=== PATIENT | female | born 1950 | race African-American/Black ===

== ENCOUNTER 2016-07-16 16:09 | Emergency (ER) | payer MEDICARE ==
[~2016-07-16] VITALS: Ht 157.5 cm; Wt 55.8 kg
[~2016-07-16 16:09] MED LIST: AMLO10TA2 PO; CELE200C PO; ESOM40CA25 PO; HYDR-2762 PO; MOME110A IH; MOME13HF IH
--- NOTE | 2016-07-16 17:42 | PHYS DOC ---
Past Medical History Past Medical History: Arthritis, Hypertension Additional Past Medical Histor: chronic back pain, panceratitis, Past Surgical History: Cholecystectomy Alcohol Use: None Drug Use: Cocaine, Marijuana Adult General Chief Complaint Chief Complaint: BACK PAIN OR INJURY HPI HPI Patient is a 66 year old female who presents with low back pain. Patient reports she has chronic low back pain with radiation down her legs. She says she has been recommended for surgery in the past, but has not done it. This acute exacerbation started 3 days ago when she says she fell after her leg gave out. She did not hit her head or lose consciousness. She presents now with diffuse low back pain. She denies any loss of bowel or bladder continence. She has been ambulatory since. She has tried Excedrin with insufficient relief. Review of Systems Review of Systems Constitutional: Denies fever or chills Eyes: Denies change in visual acuity or eye pain HENT: Denies nasal congestion or sore throat Respiratory: Denies cough or shortness of breath Cardiovascular: Denies chest pain GI: Denies abdominal pain, nausea, vomiting, bloody stools or diarrhea : Denies dysuria or hematuria Musculoskeletal: Acute on chronic low back pain Integument: Denies rash or skin lesions Neurologic: Tingling pain down legs (chronic). Denies headache, focal weakness or acute sensory changes Current Medications Current Medications Current Medications Medications (Trade) Dose Ordered Sig/Hayley Start Time Stop Time Status Last Admin Dose Admin Ketorolac Tromethamine (Toradol Im) 30 mg 1X ONCE 07/16/16 18:30 07/16/16 18:31 DC 07/16/16 18:11 30 MG Oxycodone/ Acetaminophen (Percocet 5/325) 2 tab 1X ONCE 07/16/16 18:30 07/16/16 18:31 DC 07/16/16 18:10 2 TAB Allergies Allergies Allergies Coded Allergies Type Severity Reaction Last Updated Verified Penicillins Allergy Intermediate 02/08/16 Yes Physical Exam Physical Exam Constitutional: Well developed, well nourished, non-toxic appearance; ambulatory in ED HENT: Normocephalic, atraumatic, bilateral external ears normal Eyes: EOMI, conjunctiva normal, no discharge Neck: Normal range of motion, no stridor Cardiovascular: Heart rate normal, regular rhythm, no murmur Lungs & Thorax: Bilateral breath sounds clear to auscultation Abdomen: Bowel sounds normal, soft, non-distended, no TTP Skin: Warm, dry, no erythema, no rash Back: General lumbar tenderness; no stepoff noted Extremities: No obvious deformity, no edema Neurologic: Alert and oriented X 3, strength and sensation to light touch in BLE intact and symmetrical, no gross deficits noted Current Patient Data Vital Signs Vital Signs Date Time Temp Pulse Resp B/P Pulse Ox O2 Delivery O2 Flow Rate FiO2 07/16/16 19:33 97 191/86 98 Room Air 07/16/16 17:14 98.3 19 98.3 EKG EKG [] Radiology/Procedures Radiology/Procedures CT lumbar spine: IMPRESSION No acute fracture or subluxation of the lumbar vertebrae is seen. Course & Med Decision Making Course & Med Decision Making Pertinent Labs and Imaging studies reviewed. (See chart for details) Patient is 66-year-old female who presents with acute on chronic low back pain after fall a few days ago. No red flag findings on physical exam. Will obtain CT lumbar spine to rule out serious injury. Oral pain meds and IM Toradol ordered for pain control. Imaging results as above. Discussed findings with patient, who reports her pain has greatly improved. Will plan discharge home with short course of pain medication, instructions for follow-up with her back surgeon, return precautions. Dragon Disclaimer Dragon Disclaimer This electronic medical record was generated, in whole or in part, using a voice recognition dictation system. Departure Departure Impression: Primary Impression: Acute exacerbation of chronic low back pain Disposition: HOME, SELF-CARE Condition: IMPROVED Referrals: JERRI BUCKLEY MD (PCP) ANGELES RICE MD Patient Instructions: Chronic Back Pain Additional Instructions: Thank you for allowing us to provide care today in the Emergency Department. Take the provided medication as directed. Use caution when taking this medication as it can make you drowsy. Schedule a follow up appointment with your primary care doctor. Also schedule a follow up appointment with your back surgeon. Return promptly to the Emergency Department if you develop any new or concerning symptoms. Scripts Naproxen 375 Mg [id number] Mg PO BID PRN PAIN #20 Prov:RICCI ANDREW MD 07/16/16 Hydrocodone/Apap 5-325 ([place] 5-325 Tablet)1 Each Tablet1 Tab PO PRN Q6HRS PRN PAIN #15 TAB Prov:RICCI ANDREW MD 07/16/16 RICCI ANDREW MD Jul 16, 2016 17:42
[2016-07-16] MEDS ORDERED: OXYCODONE/APAP 5/325 TABLET. PO ONE (18:30)
[2016-07-16] MEDS ORDERED: KETOROLAC TROMETHAMINE 60 MG/2 ML SYRINGE. IM ONE (18:30)
--- NOTE | 2016-07-16 18:35 | RAD ---
PROCEDURE CT scan of the lumbar spine without contrast 07/16/2016 HISTORY Severe low back pain post fall 2 days ago. TECHNIQUE Unenhanced contiguous, 0.625 millimeter axial sections were obtained through the lumbar spine. 3 millimeter sagittal, axial and coronal images of the lumbar spine were obtained. One or more of the following individualized dose reduction techniques were utilized for this study: 1. Automated exposure control. 2. Adjustment of the mA and/or kV according to patient size. 3. Use of iterative reconstruction technique. FINDINGS Comparison is made to an MRI of the lumbar spine dated 09/25/2015. Sagittal and coronal reconstructed images demonstrate very mild S-shaped curvature of the thoracolumbar spine. Degenerative changes consisting varying degrees of disc space narrowing, vertebral endplate sclerosis and minimal to mild anterior vertebral body osteophyte formation are seen throughout the lower thoracic and lumbar disc spaces. Irregularity of the endplate surrounding the L4-5 discs is again seen. Increased sclerosis surrounding these discs is noted. These findings ahve not significantly changed since the MRI examination and are felt to most likely reflect the changes of degenerative disc disease although they could be seen in the setting of discitis/osteomyelitis. Disc space narrowing is seen at L5-S1. Atherosclerotic calcification of the abdominal aorta and its branches is noted. No fracture or subluxation of the lumbar vertebrae is seen. The changes of degenerative disc disease are seen involving the mid and lower lumbar spine on the axial images. These consist of mild to moderate generalized disc bulges, degenerative changes involving the facet joints and mild to moderate ligamentum flavum hypertrophy. These findings result in severe central spinal canal stenosis with moderate to severe, left greater than right, neural foraminal stenosis at L4-5 and moderate to severe central spinal canal stenosis with moderate right greater than left neural foraminal stenosis at L5-S1. IMPRESSION No acute fracture or subluxation of the lumbar vertebrae is seen. Electronically signed by: Nj Bailey MD (Jul 16, 2016 18:34:23)
[2016-07-16] MEDS ORDERED: NAPR375T3 PO (19:10)
[2016-07-16] MEDS ORDERED: HYDR-971 PO (19:10)
[2016-07-16 19:33] VITALS: BP 191/86
== END 2016-07-16 19:28 | disposition home or self-care (01) ==
LOC: ER 16:09
DX: G89.29 Other chronic pain (principal); M54.5 Low back pain; M19.90 Unspecified osteoarthritis, unspecified site; I10 Essential (primary) hypertension; F12.10 Cannabis abuse, uncomplicated; F14.10 Cocaine abuse, uncomplicated; Z88.0 Allergy status to penicillin
CPT/HCPCS: 72131; 96372; 99284; J1885

== ENCOUNTER 2016-08-13 11:56 | Inpatient (IN) | payer MEDICARE ==
[~2016-08-13] VITALS: Ht 157.5 cm; Wt 49.0 kg
[~2016-08-13 11:56] MED LIST changes: +HYDR-971 PO; +NAPR375T3 PO
[2016-08-13] MEDS ORDERED: FENTANYL PF 100 MCG/2 ML VIAL. IV PRN (14:30)
[2016-08-13 14:34] VITALS: BP 144/99
[2016-08-13 15:05] LABS: BASO % 1 % (0-3); EOS % 2 % (0-3); HEMATOCRIT 35.4 % (36.0-47.0); HEMOGLOBIN 12.1 g/dL (12.0-15.5); LYMPH # 2.5 x10^3/uL (1.0-4.8); LYMPH % 35 % (24-48); MEAN CORPUSCULAR HEMOGLOBIN 35 pg (25-35); MEAN CORPUSCULAR HGB CONC 34 g/dL (31-37); MEAN CORPUSCULAR VOLUME 101 fL (79-100); MONO % 7 % (0-9); NEUT % 55 % (31-73); PLATELET COUNT 177 x10^3/uL (140-400); RED BLOOD COUNT 3.51 x10^6/uL (3.50-5.40); RED CELL DISTRIBUTION WIDTH 15.7 % (11.5-14.5)
[2016-08-13 15:22] LABS: ALBUMIN 3.5 g/dL (3.4-5.0); CALCIUM 9.4 mg/dL (8.5-10.1); CREATININE 1.2 mg/dL (0.6-1.0); GFR 54.1; POTASSIUM 3.1 mmol/L (3.5-5.1); TOTAL BILIRUBIN 0.4 mg/dL (0.2-1.0); TOTAL PROTEIN 7.1 g/dL (6.4-8.2)
[2016-08-13] MEDS: GABAPENTIN 300 MG CAPSULE. PO SCH ×2 (15:36→21:01)
[2016-08-13] MEDS: HYDROCODONE/APAP 10/325 TABLET. PO PRN (15:37)
[2016-08-13] MEDS ORDERED: ACETAMINOPHEN 325 MG TABLET. PO PRN (16:15)
[2016-08-13 17:40] LABS: BARBITURATES NEG (NEG); BENZODIAZEPINES NEG (NEG); CANNABINOIDS POS (NEG); COCAINE POS (NEG); METHADONE NEG (NEG); OPIATES NEG (NEG); PHENCYCLIDINE NEG (NEG)
[2016-08-13 17:43] LABS: ETHANOL, URINE NEG (NEG)
[2016-08-13 18:38] LABS: BILIRUBIN,URINE SMALL (NEG); GLUCOSE,URINE NEGATIVE (NEG); NITRITE,URINE NEGATIVE (NEG); PROTEIN,URINE 30 mg/dL (NEG-TRACE)
--- NOTE | 2016-08-13 18:46 | EKG ---
[facility] [address] [place] [address] Test Date: 2016-08-13 Test Time: 17:40:16 Pat Name: HASEEB CUMMINS Department: Room: [facility] Gender: F Bar Useful Or Busser: STEFFI : 1950 Requested By: MILLY FERRERA Order Number: [id number] Reading MD: Justina Lugo Measurements Intervals [place] Rate: 67 P: 49 NV: 148 QRS: 46 QRSD: 84 T: 64 QT: 370 QTc: 394 Interpretive Statements SINUS RHYTHM QRS(T) CONTOUR ABNORMALITY CONSISTENT WITH ANTEROSEPTAL INFARCT AGE UNDETERMINED ABNORMAL ECG RI6.01 Unconfirmed report Compared to ECG 11/28/2015 13:34:16 Myocardial infarct finding now present Sinus bradycardia no longer present Electronically Signed On 08-14-2016 19:58:11 CDT by Justina Lugo
[2016-08-13 18:54] LABS: BACTERIA,URINE FEW /HPF (0-FEW); RBC,URINE 0 /HPF (0-2); SQUAMOUS EPITHELIAL CELL,UR MOD /LPF
[2016-08-13 19:00] VITALS: BP 146/109
[2016-08-13] MEDS: AMLODIPINE BESYLATE 10 MG TABLET PO SCH (21:00)
[2016-08-13] MEDS: FENTANYL PF 100 MCG/2 ML VIAL. IV PRN (21:01)
[2016-08-13] MEDS ORDERED: CLONIDINE HCL 0.1 MG TABLET PO PRN (21:15)
[2016-08-13 23:00] VITALS: BP 175/96
[2016-08-14] VITALS (12 sets, daily range): BP systolic 98–149; BP diastolic 57–90
--- NOTE | 2016-08-14 02:23 | CONS ---
DATE OF CONSULTATION: 08/13/2016 Dr. Laurent Merritt. 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 She is with known hypertension under control with medication. Last worked at [employer] in [place]. The patient started having lower back achiness and stiffness mainly in the morning going on for more than one year and it gradually got worse and pain radiating to both lower extremities with numbness and tingling and weakness in her right lower extremity. She admits some problems with constipation. She denies any trouble with urination. Dr. Coleen Madrid used to be her family physician, but she has not seen her in about a year. She gave her oxycodone one time. The patient lives alone, had stairs to manage. The patient started having dragging of the foot going on for about 3-4 months. She had MRI scan of her lumbar vertebrae done in 01/2016, which revealed multilevel degenerative disk disease and degenerative joint disease with lumbar spinal stenosis at L4-L5 and to some extent at L5-S1 and she had CT scan of the lumbar spine done on 07/16 of this year, which again revealed spinal stenosis. The patient right now taking [id number] Excedrin for pain. She also smokes ____ for pain control. The patient used to smoke, but has not smoked in about 4-5 years. ALLERGIES: SHE IS KNOWN ALLERGIC TO PENICILLIN. PHYSICAL EXAMINATION: Today revealed a middle-aged female, thin built, in severe distress. She came to office walking with limping and dragging of her right foot, holding on to resendez. The patient had painful limited movements of her lumbar spine to a significant degree. She had tenderness to palpation over lower thoracic and lumbar paraspinal muscles extending over to sacroiliac joint area and gluteal muscles and trochanteric bursa. Straight leg raising test is positive on the right side causes some back pain. The patient had pain free range of motion of both hip and knee joints. Mild crepitus on range of motion of both knee joints without any obvious knee joint effusion. She had painful limited movements of her lumbar spine with moderate degree of lower thoracic and lumbar paraspinal muscle spasm. She had decreased touch and pinprick sensation over L5 and S1 dermatome area, more so of L5. She also had tenderness to palpation over right ankle anterolateral aspect and right tendo Achilles and she had positive Tinel sign over right peroneal nerve at fibular neck and over tibial nerve over medial aspect of her right foot. The patient had 4+/5 grade muscle strength overall with only 2-/5 grade muscle strength in right foot dorsiflexors. She is independent with bed mobility. Her skin is intact at this time. Blood pressure is 138/100 mmHg, temperature 98 degrees Fahrenheit. ASSESSMENT: 1. Mobility and self-care limitation from lumbar spinal stenosis with a right L5 radiculopathy and right foot drop and hypertension. 2. Bilateral trochanteric bursitis. 3. Tendinitis and sprain, right ankle and right foot drop. 4. Hypertension, not under good control. 5. Multilevel degenerative disk disease and degenerative joint disease of lumbar vertebrae, mainly at L4-L5 and L5-S1 level. RECOMMENDATION: I saw her this morning in my office and spoke to Dr. Vaengas and Dr. Laurent Merritt to admit her to the hospital, to have Dr. Vanegas see her. She probably needs lumbar decompression laminectomy when she is medically stable, to also get her right ankle foot brace and lumbar corset for use while up. Dr. Merritt, I appreciate asking me to participate in the care of this interesting patient. I will be glad to follow her with you as needed for her rehabilitation. RAUL DEVI MD DR: DELBERT/melissa JOB#: [id number] / [id number]
[2016-08-14] MEDS: FENTANYL PF 100 MCG/2 ML VIAL. IV PRN ×4 (04:54→14:06)
[2016-08-14] MEDS ORDERED: BACITRACIN 50,000 UNIT in IV NORMAL SALINE 1000ML BAG 1,000 ML IRR ONE (06:00)
[2016-08-14] MEDS ORDERED: THROMBIN 20,000 UNIT SPRAY.SYRN KIT TP ONE (06:43)
[2016-08-14] MEDS ORDERED: GELATIN SPONGE SIZE 100. ONE (06:43)
[2016-08-14] MEDS ORDERED: KETOROLAC 60 MG/2 ML INJ FOR OR. ONE (06:43)
[2016-08-14] MEDS ORDERED: BUPIVAC MPF-EPI 0.5%-1:200000 30 ML VIAL. ONE (06:44)
[2016-08-14] MEDS ORDERED: HYDROMORPHONE 2 MG/ML VIAL. IV PRN (07:00)
[2016-08-14] MEDS ORDERED: IV RINGERS,LACTATED 1000ML 1,000 ML IV SCH (07:00)
[2016-08-14] MEDS ORDERED: ONDANSETRON PF 4 MG/2 ML VIAL. IV PRN (07:00)
[2016-08-14] MEDS ORDERED: FENTANYL PF 100 MCG/2 ML VIAL. IV PRN (07:00)
[2016-08-14] MEDS ORDERED: LIDOCAINE 1% 1 ML SYRINGE. ID PRN (07:00)
[2016-08-14] MEDS ORDERED: PROCHLORPERAZINE 10 MG/2 ML VIAL. IV PRN (07:00)
--- NOTE | 2016-08-14 08:15 | PDOC1 ---
HISTORY AND PHYSICAL Chief Complaint Chief Complaint This 66 year old female has been admitted with a chief complaint of acute on chronic back pain. She has noted worsening back pain for over a year. Yesterday she was seen by Dr. 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 Dr. Vanegas was consulted and she is going to surgery later today. Past Medical History Cardiovascular: HTN, Other (+ murmur) Pulmonary: COPD (tobacco history ) GI: GERD, Peptic Ulcer disease (h/o) Psych: Anxiety, Addictions (h/o crack cocaine years ago, occaisional marijuana use) Musculoskeletal: low back pain (Multilevel degenerative disk disease and degenerative joint disease of LS with central spinal canal stenosis ), Osteoarthritis Renal/: Chronic renal insuff (CKD II ) Past Surgical History PSH breast biopsy L breast mass +for sclerosis adenosis tumor; some type pancreas surgery Past Surgical History: Cholecystectomy, Other (hemorrhoid surgery ) Past Family History Family History: Cancer (Dad-lung. Brother - bone. ), Drug Abuse, Heart Disease (Mom ) Past Social History PSH , h/o tobacco age start 11, quit 60 yo, 3 cig per day. neg ETOH. h/o crack cocaine-stopped years ago per pt, current drug screen + cocaine. Current occasional marijuana. Review of Symptoms Review of Symptoms A 14 point ROS was completed with the following noted as positive: low back pain Other systems reviewed and negative. Medications reviewed and reconciled Allergy Allergies Coded Allergies Type Severity Reaction Last Updated Verified Penicillins Allergy Intermediate 02/08/16 Yes Physical Exam Physical Exam General appearance - alert, thin appearing, and in no mild distress Mental Status - alert, oriented to person, place, and time, affect appropriate to mood Head - normal Chest - clear to auscultation, no wheezes, rales or rhonchi, symmetric air entry Heart - S1 and S2 normal Abdomen - soft, nontender, nondistended, BS + Neurological - no acute focal neurological deficits noted Musculoskeletal - tender LS spine with mod to severe pain with ROM Extremities - no pedal edema Skin - warm and dry VTE Prophylaxis Ordered VTE Prophylaxis Devices: Yes VTE Pharmacological Prophylaxi: No Assessment Labs Laboratory Tests Test 08/13/16 14:50 08/13/16 17:15 White Blood Count 7.0x10^3/uL (4.0-11.0) Red Blood Count 3.51x10^6/uL (3.50-5.40) Hemoglobin 12.1g/dL (12.0-15.5) Hematocrit 35.4% (36.0-47.0) Mean Corpuscular Volume 101fL (79-100) Mean Corpuscular Hemoglobin 35pg (25-35) Mean Corpuscular Hemoglobin Concent 34g/dL (31-37) Red Cell Distribution Width 15.7% (11.5-14.5) Platelet Count 177x10^3/uL (140-400) Neutrophils (%) (Auto) 55% (31-73) Lymphocytes (%) (Auto) 35% (24-48) Monocytes (%) (Auto) 7% (0-9) Eosinophils (%) (Auto) 2% (0-3) Basophils (%) (Auto) 1% (0-3) Neutrophils # (Auto) 3.8x10^3uL (1.8-7.7) Lymphocytes # (Auto) 2.5x10^3/uL (1.0-4.8) Monocytes # (Auto) 0.5x10^3/uL (0.0-1.1) Eosinophils # (Auto) 0.1x10^3/uL (0.0-0.7) Basophils # (Auto) 0.0x10^3/uL (0.0-0.2) Sodium Level 144mmol/L (136-145) Potassium Level 3.1mmol/L (3.5-5.1) Chloride Level 107mmol/L (98-107) Carbon Dioxide Level 28mmol/L (21-32) Anion Gap 9 (6-14) Blood Urea Nitrogen 21mg/dL (7-20) Creatinine 1.2mg/dL (0.6-1.0) Estimated GFR (Cockcroft-Gault) 54.1 BUN/Creatinine Ratio 18 (6-20) Glucose Level 108mg/dL (70-99) Calcium Level 9.4mg/dL (8.5-10.1) Total Bilirubin 0.4mg/dL (0.2-1.0) Aspartate Amino Transf (AST/SGOT) 18U/L (15-37) Alanine Aminotransferase (ALT/SGPT) 14U/L (14-59) Alkaline Phosphatase 95U/L (46-116) Total Protein 7.1g/dL (6.4-8.2) Albumin 3.5g/dL (3.4-5.0) Albumin/Globulin Ratio 1.0 (1.0-1.7) Triglycerides Level 143mg/dL (0-150) Cholesterol Level 194mg/dL (0-200) LDL Cholesterol, Calculated 117mg/dL (0-100) VLDL Cholesterol, Calculated 29mg/dL (0-40) HDL Cholesterol 48mg/dL (40-60) Cholesterol/HDL Ratio 4.0 Thyroid Stimulating Hormone (TSH) 1.341uIU/mL (0.358-3.74) Urine Collection Type Unknown Urine Color Yellow Urine Clarity Clear Urine pH 6.0 Urine Specific Ingraham >=1.030 Urine Protein 30mg/dL (NEG-TRACE) Urine Glucose (UA) Negativemg/dL (NEG) Urine Ketones (Stick) Negativemg/dL (NEG) Urine Blood Negative (NEG) Urine Nitrite Negative (NEG) Urine Bilirubin Small (NEG) Urine Urobilinogen Dipstick 1.0mg/dL (0.2 mg/dL) Urine Leukocyte Esterase Negative (NEG) Urine RBC 0/HPF (0-2) Urine WBC 1-4/HPF (0-4) Urine Squamous Epithelial Cells Mod/LPF Urine Bacteria Few/HPF (0-FEW) Urine Hyaline Casts Many/HPF Urine Mucus Mod/LPF Urine Opiates Screen Neg (NEG) Urine Methadone Screen Neg (NEG) Urine Barbiturates Neg (NEG) Urine Phencyclidine Screen Neg (NEG) Urine Amphetamine/Methamphetamine Neg (NEG) Urine Benzodiazepines Screen Neg (NEG) Urine Cocaine Screen Pos (NEG) Urine Cannabinoids Screen Pos (NEG) Urine Ethyl Alcohol Neg (NEG) Laboratory Tests Test 08/13/16 14:50 08/13/16 17:15 White Blood Count 7.0x10^3/uL (4.0-11.0) Red Blood Count 3.51x10^6/uL (3.50-5.40) Hemoglobin 12.1g/dL (12.0-15.5) Hematocrit 35.4% (36.0-47.0) Mean Corpuscular Volume 101fL (79-100) Mean Corpuscular Hemoglobin 35pg (25-35) Mean Corpuscular Hemoglobin Concent 34g/dL (31-37) Red Cell Distribution Width 15.7% (11.5-14.5) Platelet Count 177x10^3/uL (140-400) Neutrophils (%) (Auto) 55% (31-73) Lymphocytes (%) (Auto) 35% (24-48) Monocytes (%) (Auto) 7% (0-9) Eosinophils (%) (Auto) 2% (0-3) Basophils (%) (Auto) 1% (0-3) Neutrophils # (Auto) 3.8x10^3uL (1.8-7.7) Lymphocytes # (Auto) 2.5x10^3/uL (1.0-4.8) Monocytes # (Auto) 0.5x10^3/uL (0.0-1.1) Eosinophils # (Auto) 0.1x10^3/uL (0.0-0.7) Basophils # (Auto) 0.0x10^3/uL (0.0-0.2) Sodium Level 144mmol/L (136-145) Potassium Level 3.1mmol/L (3.5-5.1) Chloride Level 107mmol/L (98-107) Carbon Dioxide Level 28mmol/L (21-32) Anion Gap 9 (6-14) Blood Urea Nitrogen 21mg/dL (7-20) Creatinine 1.2mg/dL (0.6-1.0) Estimated GFR (Cockcroft-Gault) 54.1 BUN/Creatinine Ratio 18 (6-20) Glucose Level 108mg/dL (70-99) Calcium Level 9.4mg/dL (8.5-10.1) Total Bilirubin 0.4mg/dL (0.2-1.0) Aspartate Amino Transf (AST/SGOT) 18U/L (15-37) Alanine Aminotransferase (ALT/SGPT) 14U/L (14-59) Alkaline Phosphatase 95U/L (46-116) Total Protein 7.1g/dL (6.4-8.2) Albumin 3.5g/dL (3.4-5.0) Albumin/Globulin Ratio 1.0 (1.0-1.7) Triglycerides Level 143mg/dL (0-150) Cholesterol Level 194mg/dL (0-200) LDL Cholesterol, Calculated 117mg/dL (0-100) VLDL Cholesterol, Calculated 29mg/dL (0-40) HDL Cholesterol 48mg/dL (40-60) Cholesterol/HDL Ratio 4.0 Thyroid Stimulating Hormone (TSH) 1.341uIU/mL (0.358-3.74) Urine Collection Type Unknown Urine Color Yellow Urine Clarity Clear Urine pH 6.0 Urine Specific Ingraham >=1.030 Urine Protein 30mg/dL (NEG-TRACE) Urine Glucose (UA) Negativemg/dL (NEG) Urine Ketones (Stick) Negativemg/dL (NEG) Urine Blood Negative (NEG) Urine Nitrite Negative (NEG) Urine Bilirubin Small (NEG) Urine Urobilinogen Dipstick 1.0mg/dL (0.2 mg/dL) Urine Leukocyte Esterase Negative (NEG) Urine RBC 0/HPF (0-2) Urine WBC 1-4/HPF (0-4) Urine Squamous Epithelial Cells Mod/LPF Urine Bacteria Few/HPF (0-FEW) Urine Hyaline Casts Many/HPF Urine Mucus Mod/LPF Urine Opiates Screen Neg (NEG) Urine Methadone Screen Neg (NEG) Urine Barbiturates Neg (NEG) Urine Phencyclidine Screen Neg (NEG) Urine Amphetamine/Methamphetamine Neg (NEG) Urine Benzodiazepines Screen Neg (NEG) Urine Cocaine Screen Pos (NEG) Urine Cannabinoids Screen Pos (NEG) Urine Ethyl Alcohol Neg (NEG) Plan Plan 1. Severe spinal stenosis with DDD mainly involving L4-L5 and L5-S1 with radiculopathy R >L 2. tendinits sprain R foot drop r/t #1 3. HTN 4. +cocaine per urine drug screen 5. 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 hypokalemia 7. COPD 8. + heart murmur 9. bilateral trochanteric bursitis PLAN: back pain with radiculopathy neurosurgeon consult surgery today 08/14 HTN continue home med Heart murmur check ECHO COPD nebulizer prn O2 prn maintain Sat >90% hypokalemia stat BMP pending-surgery at 1230 + urine drug screen cocaine d/w Asya DVT/GI prophylaxis SCD/TARIQ PPI For more details regarding further plans, please refer to the orders. WOODROW MISTRY APRN Aug 14, 2016 08:15
[2016-08-14] MEDS: PANTOPRAZOLE 40 MG TABLET. PO SCH (08:30)
--- NOTE | 2016-08-14 08:31 | RAD ---
Indication preop. Anticipated laminectomy. A single view of the chest was obtained. No prior imaging of the chest is available. There is a soft tissue density in the upper mediastinum adjacent to the trachea. This may represent vessels. Mediastinal extension of the thyroid is not excluded. Comparison with old films is advised. If mediastinal pathology is clinically suspect a CT examination could be performed. Heart size is within normal limits. There is no gross congestive heart failure. A focal infiltrate is not seen. An acute finding in the chest is not apparent. IMPRESSION: Soft tissue density in the upper mediastinum. See above discussion. An acute finding in the chest is not seen
[2016-08-14] MEDS: AMLODIPINE BESYLATE 10 MG TABLET PO SCH (08:35)
[2016-08-14] MEDS ORDERED: AMLODIPINE BESYLATE 10 MG TABLET PO SCH (09:00)
[2016-08-14] MEDS: GABAPENTIN 300 MG CAPSULE. PO SCH ×3 (09:00→21:33)
[2016-08-14] MEDS: LIDOCAINE (700MG/PATCH) PATCH. TD SCH ×2 (09:00→16:49)
[2016-08-14] MEDS ORDERED: VANCOMYCIN 1GM IVPB FOR OMNI 250 ML ONE (09:03)
[2016-08-14] MEDS ORDERED: ONDANSETRON PF 4 MG/2 ML VIAL. ONE (09:35)
[2016-08-14] MEDS ORDERED: 0.9 % SODIUM CHLORIDE 50 ML VIAL. IJ ONE (09:35)
[2016-08-14] MEDS ORDERED: PROPOFOL 20 ML IV ONE (09:35)
[2016-08-14] MEDS ORDERED: DESFLURANE > 120 MINUTES IH ONE (09:35)
[2016-08-14] MEDS ORDERED: MINERAL OIL/PETROLATUM,WHITE OPHTH OINT 3.5GM TUBE. ONE (09:35)
[2016-08-14] MEDS ORDERED: DEXAMETHASONE SOD PHOS 20 MG/5 ML VIAL. ONE (09:35)
[2016-08-14] MEDS ORDERED: LIDOCAINE 2% 100 MG/5 ML DISP.SYRIN. ONE (09:35)
[2016-08-14] MEDS ORDERED: FENTANYL PF 100 MCG/2 ML VIAL. ONE (09:35)
[2016-08-14] MEDS ORDERED: PROPOFOL 50 ML IV ONE (09:35)
[2016-08-14] MEDS ORDERED: REMIFENTANIL 2 MG VIAL. IV ONE (09:36)
[2016-08-14] MEDS ORDERED: ROCURONIUM 50 MG/5 ML VIAL. ONE (09:36)
[2016-08-14] MEDS ORDERED: PHENYLEPHRINE 10 MG/ML VIAL. ONE (11:53)
[2016-08-14] MEDS ORDERED: EPHEDRINE PF IN SALINE 50 MG/5 ML DISP.SYRIN. IV ONE (12:13)
[2016-08-14] MEDS: MORPHINE SULFATE 2 MG/ML DISP.SYRIN. IV PRN ×2 (14:19→14:27)
--- NOTE | 2016-08-14 14:43 | OP ---
DATE OF SURGERY: 08/14/2016 PREOPERATIVE DIAGNOSIS: Lumbar spinal stenosis at L4-L5 bilateral with right footdrop. POSTOPERATIVE DIAGNOSIS: Lumbar spinal stenosis at L4-L5 bilateral with right footdrop. OPERATION PERFORMED: Bilateral hemilaminotomies with microdecompression of dura and nerve root. The operation was done with EMG monitoring, fluoroscopy, and microscopic dissection. SURGEON: Mich Agarwal M.D. DITCH REPAIRER: Mukul Arce MD, assisted with surgery, assisted with the exposure, microdecompression bilaterally as well as the closure. OPERATIVE INDICATIONS: The patient is a very pleasant 66-year-old woman who developed problems with a right footdrop which became severe. She was admitted and evaluated. On imaging studies, there was severe lumbar spinal stenosis at L4-L5. I spoke with her about the surgery and the risks involved. She wished to go ahead. She understood that she may not get any recovery of her weakness and dorsiflexion of her right foot but that the surgery was done primarily to prevent any further worsening and to help decompress the nerve roots in her spine. DESCRIPTION OF PROCEDURE: Following general endotracheal anesthesia, the patient was [facility]. Her lumbar region was prepped and draped in standard fashion. TARIQ hose and AV impulse boots were applied for DVT prophylaxis. A microscope was draped. Fluoroscopy was draped and brought into field. Monitoring was established. Vancomycin 1 gram was given. Using fluoroscopic guidance, incision was made over the L4-L5 interspace. I dissected down through the skin and subcutaneous tissue and reflected the paraspinal muscles toward the right side and placed a [place] micro disk retractor, brought in the microscope, and the remainder of surgery was done with the microscope using microscopic technique. Using the high-speed air drill, I burred down a generous hemilaminotomy. I then grasped and peeled down very thickened ligamentum flavum and peeled this back off of the dura. I did drill down and perform a partial foraminotomy. I trimmed a very thickened ligament away and exposed the dura. I worked undercutting through the midline, and on the right side, I gently retracted the dura medially. There was bulging disc, which was heavily calcified. No discectomy was warranted. The region was very well decompressed. The dura was pulsatile, looked quite good. Hemostasis was maintained with both bipolar cautery as well as bone wax. I irrigated it copiously, and I made an incision in the contralateral lumbodorsal fascia and switched the retractor to the contralateral side, and I performed the identical operation on the left side. The disc was focally bulging but again very heavily calcified. There was no soft disc. I did not feel a discectomy was warranted. I did coagulate a few epidural veins. I used bone wax for any bone bleeding. I irrigated and placed Gelfoam over the exposed hemilaminotomy exposure. Again, the dura was pulsatile. Hemostasis was excellent. I irrigated it copiously, removed the retractor, obtained hemostasis in the muscle, and I closed the wound in layers with absorbable suture, and the skin was closed with a 4-0 subcuticular stitch. The operation went very well, and the patient was taken to Recovery Room in excellent condition. I was quite pleased with the surgery. MICH AGARWAL MD DR: ROCHELLE/melissa JOB#: [id number] / [id number] BRYANT
--- NOTE | 2016-08-14 16:13 | CARD ---
APPROVED REPORT EXAM: Two-dimensional and M-mode echocardiogram with Doppler and color Doppler. Other Information Quality : Average Rhythm : NSR INDICATION Murmur 2D DIMENSIONS RVDd3.2 (2.9-3.5cm)Left Atrium(2D)3.0 (1.6-4.0cm) IVSd1.2 (0.7-1.1cm)Aortic Root(2D)3.1 (2.0-3.7cm) LVDd3.8 (3.9-5.9cm)LVOT Diameter2.1 (1.8-2.4cm) PWd1.2 (0.7-1.1cm)LVDs2.5 (2.5-4.0cm) FS (%) 33.4 %SV39.0 ml LVEF(%)62.8 (>50%) Aortic Valve AoV Peak Papo.120.1cm/sAoV VTI21.4cm AO Peak GR.5.8mmHgLVOT VTI 19.87cm AO Mean GR.3mmHgAVA (VTI)3.18cm2 Mitral Valve MV E Kvaygoih70.6cm/sMV E Peak Gr.3mmHg MV DECEL [id number] A Ciyfgjrh79.1cm/s MV TUK95ebI/A Ratio0.8 MV A Oedqefao047hiCJG (PHT)3.24cm2 TDI Lateral E' P. V6.71cm/sMedial E' P. V4.84cm/s E/Lateral E'11.9E/Medial E'16.4 Tricuspid Valve TR P. Boxrrzyi698eh/sRAP NEMTKTDZ6bdNi TR Peak Gr.39eaBsKGKL45joUo Pulmonary Vein S1 Gyuaqdxd21.1cm/sS2 Ghaenloy10.82cm/s D2 Wwxrwxau37.8cm/sPVa taqyxxoz08wlnf LEFT VENTRICLE The left ventricle is normal size. There is borderline concentric left ventricular hypertrophy. Left ventricle systolic function is normal. The Ejection Fraction is 60-65%. There is normal LV segmental wall motion. The left ventricular diastolic function and filling is normal for age. RIGHT VENTRICLE The right ventricle is normal size. The right ventricular systolic function is normal. ATRIA The left atrium size is normal. The right atrium size is normal. The interatrial septum is intact wit h no evidence for an atrial septal defect or patent foramen ovale as noted on 2-D or Doppler imaging. AORTIC VALVE The aortic valve is normal in structure and function. The aortic valve is trileaflet. Doppler and Col or Flow revealed no significant aortic regurgitation. There is no significant aortic valvular stenosi s. MITRAL VALVE The mitral valve leaflets are thickened. There is no mitral valve stenosis. Doppler and Color Flow re vealed trace mitral regurgitation. TRICUSPID VALVE The tricuspid valve is normal in structure and function. Doppler and Color Flow revealed mild tricusp id regurgitation. The PA pressure was estimated at 20 mmHg. There is no tricuspid valve stenosis. PULMONIC VALVE The pulmonic valve is not well visualized. Doppler and Color Flow revealed no pulmonic valvular regur gitation. There is no pulmonic valvular stenosis. GREAT VESSELS The aortic root is normal in size. Normal pulmonary venous flow (Doppler). The IVC is normal in size and collapses >50% with inspiration. PERICARDIAL EFFUSION There is no evidence of significant pericardial effusion. Critical Notification Critical Value: No <Conclusion> The left ventricle is normal size. Left ventricle systolic function is normal. The Ejection Fraction is 60-65%. There is borderline concentric left ventricular hypertrophy. There is no significant aortic valvular stenosis. Doppler and Color Flow revealed no significant aortic regurgitation. Doppler and Color Flow revealed trace mitral regurgitation. Doppler and Color Flow revealed mild tricuspid regurgitation. The PA pressure was estimated at 20 mmHg.
[2016-08-14] MEDS: HYDROCODONE/APAP 10/325 TABLET. PO PRN ×2 (16:47→23:58)
--- NOTE | 2016-08-14 18:41 | PDOC ---
PROGRESS NOTES Subjective Subjective She feels much better post op. Objective Objective Vital Signs Date Time Temp Pulse Resp B/P Pulse Ox O2 Delivery O2 Flow Rate FiO2 08/14/16 17:49 94 Room Air 08/14/16 17:00 78 124/74 08/14/16 16:47 16 08/14/16 14:40 2.0 08/14/16 14:23 97.8 97.8 Intake and Output 08/14/16 07:00 Intake Total 365 ml Balance 365 ml Intake Oral 365 ml # Voids 1 Physical Exam Physical Exam She is supine in bed and comfortable and had lumbar corset on and she continues with right foot dorsiflexor muscle weakness. Assessment Assessment Problems Medical Problems: (1) Acute exacerbation of chronic low back pain Status: Acute Plan Plan of Care To get her up as tolerated. Comment Review of Relevant I have reviewed the following items dakota (where applicable) has been applied. Labs Laboratory Tests Test 08/13/16 14:50 08/13/16 17:15 White Blood Count 7.0x10^3/uL (4.0-11.0) Red Blood Count 3.51x10^6/uL (3.50-5.40) Hemoglobin 12.1g/dL (12.0-15.5) Hematocrit 35.4% (36.0-47.0) Mean Corpuscular Volume 101fL (79-100) Mean Corpuscular Hemoglobin 35pg (25-35) Mean Corpuscular Hemoglobin Concent 34g/dL (31-37) Red Cell Distribution Width 15.7% (11.5-14.5) Platelet Count 177x10^3/uL (140-400) Neutrophils (%) (Auto) 55% (31-73) Lymphocytes (%) (Auto) 35% (24-48) Monocytes (%) (Auto) 7% (0-9) Eosinophils (%) (Auto) 2% (0-3) Basophils (%) (Auto) 1% (0-3) Neutrophils # (Auto) 3.8x10^3uL (1.8-7.7) Lymphocytes # (Auto) 2.5x10^3/uL (1.0-4.8) Monocytes # (Auto) 0.5x10^3/uL (0.0-1.1) Eosinophils # (Auto) 0.1x10^3/uL (0.0-0.7) Basophils # (Auto) 0.0x10^3/uL (0.0-0.2) Sodium Level 144mmol/L (136-145) Potassium Level 3.1mmol/L (3.5-5.1) Chloride Level 107mmol/L (98-107) Carbon Dioxide Level 28mmol/L (21-32) Anion Gap 9 (6-14) Blood Urea Nitrogen 21mg/dL (7-20) Creatinine 1.2mg/dL (0.6-1.0) Estimated GFR (Cockcroft-Gault) 54.1 BUN/Creatinine Ratio 18 (6-20) Glucose Level 108mg/dL (70-99) Calcium Level 9.4mg/dL (8.5-10.1) Total Bilirubin 0.4mg/dL (0.2-1.0) Aspartate Amino Transf (AST/SGOT) 18U/L (15-37) Alanine Aminotransferase (ALT/SGPT) 14U/L (14-59) Alkaline Phosphatase 95U/L (46-116) Total Protein 7.1g/dL (6.4-8.2) Albumin 3.5g/dL (3.4-5.0) Albumin/Globulin Ratio 1.0 (1.0-1.7) Triglycerides Level 143mg/dL (0-150) Cholesterol Level 194mg/dL (0-200) LDL Cholesterol, Calculated 117mg/dL (0-100) VLDL Cholesterol, Calculated 29mg/dL (0-40) HDL Cholesterol 48mg/dL (40-60) Cholesterol/HDL Ratio 4.0 Thyroid Stimulating Hormone (TSH) 1.341uIU/mL (0.358-3.74) Urine Collection Type Unknown Urine Color Yellow Urine Clarity Clear Urine pH 6.0 Urine Specific [place] >=1.030 Urine Protein 30mg/dL (NEG-TRACE) Urine Glucose (UA) Negativemg/dL (NEG) Urine Ketones (Stick) Negativemg/dL (NEG) Urine Blood Negative (NEG) Urine Nitrite Negative (NEG) Urine Bilirubin Small (NEG) Urine Urobilinogen Dipstick 1.0mg/dL (0.2 mg/dL) Urine Leukocyte Esterase Negative (NEG) Urine RBC 0/HPF (0-2) Urine WBC 1-4/HPF (0-4) Urine Squamous Epithelial Cells Mod/LPF Urine Bacteria Few/HPF (0-FEW) Urine Hyaline Casts Many/HPF Urine Mucus Mod/LPF Urine Opiates Screen Neg (NEG) Urine Methadone Screen Neg (NEG) Urine Barbiturates Neg (NEG) Urine Phencyclidine Screen Neg (NEG) Urine Amphetamine/Methamphetamine Neg (NEG) Urine Benzodiazepines Screen Neg (NEG) Urine Cocaine Screen Pos (NEG) Urine Cannabinoids Screen Pos (NEG) Urine Ethyl Alcohol Neg (NEG) Medications Current Medications Gabapentin (Neurontin) 300 mg TID PO Last administered on 08/14/16 16:47; Start 08/13/16 at 15:00 Acetaminophen/ Hydrocodone Bitart (Lortab 10/325) 1 tab PRN Q6HRS PRN PO PAIN Last administered on 08/14/16 16:47; Start 08/13/16 at 14:30 Fentanyl Citrate (Fentanyl 2ml Vial) 50 mcg PRN Q3HRS PRN IV PAIN Last administered on 08/14/16 08:35; Start 08/13/16 at 14:30 Lidocaine (Lidoderm) 1 patch DAILY TD Last administered on 08/14/16 16:49; Start 08/14/16 at 09:00 Fentanyl Citrate (Fentanyl 2ml Vial) 75 mcg PRN Q3HRS PRN IV PAIN Last administered on 08/14/16 10:21; Start 08/13/16 at 14:45 Acetaminophen (Tylenol) 650 mg PRN Q6HRS PRN PO MILD PAIN; Start 08/13/16 at 16 :15 Ondansetron HCl (Zofran) 4 mg PRN Q6HRS PRN IV Nausea; Start 08/14/16 at 07:00 ; Stop 08/15/16 at 06:59 Fentanyl Citrate (Fentanyl 2ml Vial) 25 mcg PRN Q5MIN PRN IV MILD PAIN; Start 08/14/16 at 07:00; Stop 08/15/16 at 06:59 Fentanyl Citrate (Fentanyl 2ml Vial) 50 mcg PRN Q5MIN PRN IV MODERATE PAIN Last administered on 08/14/16 14:06; Start 08/14/16 at 07:00; Stop 08/15/16 at 06:59 Morphine Sulfate 1 mg 1 mg PRN Q10MIN PRN IV SEVERE PAIN Last administered on 14:27; Start 08/14/16 at 07:00; Stop 08/15/16 at 06:59 Lactated Ringer's (Iv Lactated Ringers) 1,000 ml @ 0 mls/hr Q0M IV ; Start at 07:00; Stop 08/14/16 at 18:59 Lidocaine HCl 2 ml 1X PRN PRN ID IV START; Start 08/14/16 at 07:00; Stop at 06:59 Hydromorphone HCl (Dilaudid) 0.5 mg PRN Q10MIN PRN IV SEVERE PAIN, Second choice; Start 08/14/16 at 07:00; Stop 08/15/16 at 06:59 Prochlorperazine Edisylate 5 mg 5 mg PACU PRN PRN IV NAUSEA; Start 08/14/16 at 07:00; Stop 08/15/16 at 06:59 Bacitracin/Sodium Chloride (Bacitracin/Iv Sodium Chloride 0.9% 1000ml Bag) 1, 000 ml @ 1,000 mls/hr 1X PERIOP ONCE IRR Last administered on 08/14/16 12:12 ; Start 08/14/16 at 06:00; Stop 08/14/16 at 06:59; Status DC Amlodipine Besylate (Norvasc) 10 mg DAILY PO Last administered on 08/14/16 08: 35; Start 08/13/16 at 20:00 Clonidine HCl (Catapres) 0.1 mg PRN Q6HRS PRN PO HYPERTENSION, SEE COMMENTS Last administered on 08/13/16 23:44; Start 08/13/16 at 21:15 Thrombin 20,000 unit STK-MED ONCE TP Last administered on 08/14/16 12:12; Start 08/14/16 at 06:43; Stop 08/14/16 at 06:44; Status DC Gelatin (Gelfoam Size 100) 1 each STK-MED ONCE .ROUTE Last administered on 12:12; Start 08/14/16 at 06:43; Stop 08/14/16 at 06:44; Status DC Ketorolac Tromethamine (Toradol For Or Only) 60 mg STK-MED ONCE .ROUTE Last administered on 08/14/16 12:12; Start 08/14/16 at 06:43; Stop 08/14/16 at 06:44 ; Status DC Bupivacaine HCl/ Epinephrine Bitart (Sensorcain-Mpf Epi 0.5%-1:[id number]) 30 ml STK -MED ONCE .ROUTE Last administered on 08/14/16 12:12; Start 08/14/16 at 06:44 ; Stop 08/14/16 at 06:45; Status DC Amlodipine Besylate (Norvasc) 10 mg DAILY PO ; Start 08/14/16 at 09:00; Status Cancel Pantoprazole Sodium 40 mg 40 mg DAILYAC PO ; Start 08/14/16 at 08:30 Vancomycin HCl 250 ml @ As Directed STK-MED ONCE .ROUTE ; Start 08/14/16 at 09: 03; Stop 08/14/16 at 09:04; Status DC Vancomycin HCl 250 ml @ 250 mls/hr 1X PREOP PRN IV Pre Op Last administered on 08/14/16 11:51; Start 08/15/16 at 06:00; Stop 08/15/16 at 18:00 Dexamethasone Sodium Phosphate (Decadron) 20 mg STK-MED ONCE .ROUTE ; Start at 09:35; Stop 08/14/16 at 09:36; Status DC Ondansetron HCl 4 mg 4 mg STK-MED ONCE .ROUTE ; Start 08/14/16 at 09:35; Stop at 09:36; Status DC Propofol (Diprivan) 20 ml @ As Directed STK-MED ONCE IV ; Start 08/14/16 at 09: 35; Stop 08/14/16 at 09:36; Status DC Lidocaine HCl 100 mg 100 mg STK-MED ONCE .ROUTE ; Start 08/14/16 at 09:35; Stop 08/14/16 at 09:36; Status DC Propofol (Diprivan) 50 ml @ As Directed STK-MED ONCE IV ; Start 08/14/16 at 09: 35; Stop 08/14/16 at 09:36; Status DC Multi-Ingred Cream/Lotion/Oil/ Oint (Artificial Tears Eye Oint) 7 hansel STK-MED ONCE .ROUTE ; Start 08/14/16 at 09:35; Stop 08/14/16 at 09:36; Status DC Sodium Chloride (Sodium Chloride) 50 ml STK-MED ONCE IJ ; Start 08/14/16 at 09: 35; Stop 08/14/16 at 09:36; Status DC Desflurane (Suprane) 90 ml STK-MED ONCE IH ; Start 08/14/16 at 09:35; Stop 08/14 at 09:36; Status DC Fentanyl Citrate (Fentanyl 2ml Vial) 100 mcg STK-MED ONCE .ROUTE ; Start at 09:35; Stop 08/14/16 at 09:36; Status DC Remifentanil HCl (Ultiva) 2 mg STK-MED ONCE IV ; Start 08/14/16 at 09:36; Stop 08/14/16 at 09:37; Status DC Rocuronium [place] (Zemuron) 50 mg STK-MED ONCE .ROUTE ; Start 08/14/16 at 09:36 ; Stop 08/14/16 at 09:37; Status DC Phenylephrine HCl (John-Synephrine Inj) 10 mg STK-MED ONCE .ROUTE ; Start at 11:53; Stop 08/14/16 at 11:54; Status DC Ephedrine Sulfate 50 mg STK-MED ONCE IV ; Start 08/14/16 at 12:13; Stop at 12:14; Status DC Active Scripts Active Naproxen 375 Mg Tablet 375 Mg PO BID PRN [place] 5-325 Tablet (Acetaminophen/Hydrocodone Bitart) 1 Each Tablet 1 Tab PO PRN Q6HRS PRN Reported Amlodipine Besylate 10 Mg Tablet 1 Tab PO DAILY Vitals/I & O Vital Sign - Last 24 Hours 08/13/16 08/13/16 08/13/16 08/13/16 19:00 20:00 21:00 21:01 Temp 98.6 98.6 Pulse 47 47 Resp 18 16 B/P 146/109 146/109 Pulse Ox 95 95 O2 Delivery Room Air Room Air Room Air 08/13/16 08/13/16 08/14/16 08/14/16 23:00 23:44 03:00 04:54 Temp 97.9 98.3 97.9 98.3 Pulse 71 71 91 Resp 18 18 16 B/P 175/96 175/96 136/90 Pulse Ox 97 97 97 O2 Delivery Room Air Room Air Room Air 3/29/08/14/16 08/14/16 08/14/16 05:25 07:00 08:35 08:35 Temp 98.4 98.4 Pulse 85 91 Resp 16 18 B/P 149/79 136/90 Pulse Ox 97 95 97 O2 Delivery Room Air Room Air Room Air 08/14/16 08/14/16 08/14/16 08/14/16 09:05 09:37 10:21 13:31 Temp 98.0 98.8 98.0 98.8 Pulse 73 75 Resp 12 13 20 B/P 138/84 106/76 Pulse Ox 96 96 99 100 O2 Delivery Room Air Room Air Room Air Simple Mask O2 Flow Rate 10 08/14/16 08/14/16 08/14/16 08/14/16 13:31 13:46 13:56 14:01 Pulse 68 93 Resp 20 20 20 B/P 122/72 125/75 Pulse Ox 100 100 100 O2 Delivery Mask Simple Mask Simple Mask Simple Mask O2 Flow Rate 10 10 10.0 10 08/14/16 08/14/16 08/14/16 08/14/16 14:06 14:08 14:19 14:20 Temp 97.7 97.7 Pulse 90 Resp 20 22 20 B/P 103/69 Pulse Ox 99 97 99 95 O2 Delivery Simple Mask Room Air Room Air Nasal Cannula O2 Flow Rate 10.0 2.0 08/14/16 08/14/16 08/14/16 08/14/16 14:23 14:27 14:27 14:30 Temp 97.8 97.8 Pulse 68 71 64 Resp 22 20 18 18 B/P 102/68 98/68 119/72 Pulse Ox 94 98 92 95 O2 Delivery Room Air Room Air Room Air Room Air 08/14/16 08/14/16 08/14/16 08/14/16 14:40 14:46 15:00 15:00 Pulse 94 61 B/P 116/64 Pulse Ox 95 94 100 O2 Delivery Room Air Room Air Room Air O2 Flow Rate 2.0 08/14/16 08/14/16 08/14/16 08/14/16 15:15 15:30 16:00 16:47 Pulse 60 60 77 Resp 16 B/P 108/57 112/57 118/73 Pulse Ox 92 92 95 O2 Delivery Room Air Room Air Room Air Room Air 08/14/16 08/14/16 17:00 17:49 Pulse 78 B/P 124/74 Pulse Ox 94 94 O2 Delivery Room Air Room Air Intake and Output 08/13/16 08/13/16 08/14/16 15:00 23:00 07:00 Intake Total 365 ml 0 ml Balance 365 ml 0 ml RAUL DEVI MD Aug 14, 2016 18:41
[2016-08-15 03:02] VITALS: BP 119/69
[2016-08-15] MEDS ORDERED: VANCOMYCIN 1GM IVPB FOR OMNI 250 ML IV PRN (06:00)
[2016-08-15] MEDS: FENTANYL PF 100 MCG/2 ML VIAL. IV PRN ×3 (06:10→20:01)
[2016-08-15] MEDS: PANTOPRAZOLE 40 MG TABLET. PO SCH (06:12)
[2016-08-15 06:23] LABS: BASO % 0 % (0-3); EOS % 0 % (0-3); HEMATOCRIT 31.7 % (36.0-47.0); HEMOGLOBIN 10.8 g/dL (12.0-15.5); LYMPH # 3.1 x10^3/uL (1.0-4.8); LYMPH % 24 % (24-48); MEAN CORPUSCULAR HEMOGLOBIN 34 pg (25-35); MEAN CORPUSCULAR HGB CONC 34 g/dL (31-37); MEAN CORPUSCULAR VOLUME 101 fL (79-100); MONO % 7 % (0-9); NEUT % 68 % (31-73); PLATELET COUNT 154 x10^3/uL (140-400); RED BLOOD COUNT 3.15 x10^6/uL (3.50-5.40); RED CELL DISTRIBUTION WIDTH 15.6 % (11.5-14.5); WHITE BLOOD COUNT 12.9 x10^3/uL (4.0-11.0)
[2016-08-15 07:00] VITALS: BP 136/85
[2016-08-15 07:01] LABS: CALCIUM 9.5 mg/dL (8.5-10.1); CREATININE 0.7 mg/dL (0.6-1.0); GFR 100.7; MAGNESIUM 1.9 mg/dL (1.8-2.4); POTASSIUM 3.5 mmol/L (3.5-5.1); TOTAL BILIRUBIN 0.6 mg/dL (0.2-1.0); TOTAL PROTEIN 6.1 g/dL (6.4-8.2)
--- NOTE | 2016-08-15 07:57 | PDOC ---
VILLAJamesWOODROW [employer]UTH[employer] 08/15/16 0757: IM PROGRESS NOTES- Subjective Subjective Pain is not controlled Objective Objective mild distress Vitals Vital Signs Date Time Temp Pulse Resp B/P Pulse Ox O2 Delivery O2 Flow Rate FiO2 08/15/16 06:40 16 96 08/15/16 06:10 Room Air 2.0 08/15/16 03:02 98.4 78 119/69 98.4 Input & Output Intake and Output 08/15/16 07:00 Intake Total 1453 ml Output Total 25 ml Balance 1428 ml Intake Oral 480 ml IV Total 973 ml Output Estimated Blood Loss 25 ml Physical Exam Physical Exam General appearance - alert,well appearing, and in mild distress r/t pain Head - normal Chest - clear to auscultation, no wheezes, rales or rhonchi, symmetric air entry Heart - S1 and S2 normal Abdomen - soft, nontender, nondistended, no masses or organomegaly Neurological - no acute focal neurological deficit noted, continued pain LS surgical with R leg pain continued Musculoskeletal - no muscular tenderness noted Extremities - no pedal edema Skin - warm and dry Labs Laboratory Tests Test 08/13/16 14:50 08/13/16 17:15 08/15/16 05:57 White Blood Count 7.0x10^3/uL (4.0-11.0) 12.9x10^3/uL (4.0-11.0) Red Blood Count 3.51x10^6/uL (3.50-5.40) 3.15x10^6/uL (3.50-5.40) Hemoglobin 12.1g/dL (12.0-15.5) 10.8g/dL (12.0-15.5) Hematocrit 35.4% (36.0-47.0) 31.7% (36.0-47.0) Mean Corpuscular Volume 101fL (79-100) 101fL (79-100) Mean Corpuscular Hemoglobin 35pg (25-35) 34pg (25-35) Mean Corpuscular Hemoglobin Concent 34g/dL (31-37) 34g/dL (31-37) Red Cell Distribution Width 15.7% (11.5-14.5) 15.6% (11.5-14.5) Platelet Count 177x10^3/uL (140-400) 154x10^3/uL (140-400) Neutrophils (%) (Auto) 55% (31-73) 68% (31-73) Lymphocytes (%) (Auto) 35% (24-48) 24% (24-48) Monocytes (%) (Auto) 7% (0-9) 7% (0-9) Eosinophils (%) (Auto) 2% (0-3) 0% (0-3) Basophils (%) (Auto) 1% (0-3) 0% (0-3) Neutrophils # (Auto) 3.8x10^3uL (1.8-7.7) 8.8x10^3uL (1.8-7.7) Lymphocytes # (Auto) 2.5x10^3/uL (1.0-4.8) 3.1x10^3/uL (1.0-4.8) Monocytes # (Auto) 0.5x10^3/uL (0.0-1.1) 1.0x10^3/uL (0.0-1.1) Eosinophils # (Auto) 0.1x10^3/uL (0.0-0.7) 0.0x10^3/uL (0.0-0.7) Basophils # (Auto) 0.0x10^3/uL (0.0-0.2) 0.0x10^3/uL (0.0-0.2) Sodium Level 144mmol/L (136-145) 146mmol/L (136-145) Potassium Level 3.1mmol/L (3.5-5.1) 3.5mmol/L (3.5-5.1) Chloride Level 107mmol/L (98-107) 110mmol/L (98-107) Carbon Dioxide Level 28mmol/L (21-32) 26mmol/L (21-32) Anion Gap 9 (6-14) 10 (6-14) Blood Urea Nitrogen 21mg/dL (7-20) 16mg/dL (7-20) Creatinine 1.2mg/dL (0.6-1.0) 0.7mg/dL (0.6-1.0) Estimated GFR (Cockcroft-Gault) 54.1 100.7 BUN/Creatinine Ratio 18 (6-20) 23 (6-20) Glucose Level 108mg/dL (70-99) 80mg/dL (70-99) Calcium Level 9.4mg/dL (8.5-10.1) 9.5mg/dL (8.5-10.1) Total Bilirubin 0.4mg/dL (0.2-1.0) 0.6mg/dL (0.2-1.0) Aspartate Amino Transf (AST/SGOT) 18U/L (15-37) 22U/L (15-37) Alanine Aminotransferase (ALT/SGPT) 14U/L (14-59) 16U/L (14-59) Alkaline Phosphatase 95U/L (46-116) 79U/L (46-116) Total Protein 7.1g/dL (6.4-8.2) 6.1g/dL (6.4-8.2) Albumin 3.5g/dL (3.4-5.0) 3.0g/dL (3.4-5.0) Albumin/Globulin Ratio 1.0 (1.0-1.7) 1.0 (1.0-1.7) Triglycerides Level 143mg/dL (0-150) Cholesterol Level 194mg/dL (0-200) LDL Cholesterol, Calculated 117mg/dL (0-100) VLDL Cholesterol, Calculated 29mg/dL (0-40) HDL Cholesterol 48mg/dL (40-60) Cholesterol/HDL Ratio 4.0 Thyroid Stimulating Hormone (TSH) 1.341uIU/mL (0.358-3.74) Urine Collection Type Unknown Urine Color Yellow Urine Clarity Clear Urine pH 6.0 Urine Specific [place] >=1.030 Urine Protein 30mg/dL (NEG-TRACE) Urine Glucose (UA) Negativemg/dL (NEG) Urine Ketones (Stick) Negativemg/dL (NEG) Urine Blood Negative (NEG) Urine Nitrite Negative (NEG) Urine Bilirubin Small (NEG) Urine Urobilinogen Dipstick 1.0mg/dL (0.2 mg/dL) Urine Leukocyte Esterase Negative (NEG) Urine RBC 0/HPF (0-2) Urine WBC 1-4/HPF (0-4) Urine Squamous Epithelial Cells Mod/LPF Urine Bacteria Few/HPF (0-FEW) Urine Hyaline Casts Many/HPF Urine Mucus Mod/LPF Urine Opiates Screen Neg (NEG) Urine Methadone Screen Neg (NEG) Urine Barbiturates Neg (NEG) Urine Phencyclidine Screen Neg (NEG) Urine Amphetamine/Methamphetamine Neg (NEG) Urine Benzodiazepines Screen Neg (NEG) Urine Cocaine Screen Pos (NEG) Urine Cannabinoids Screen Pos (NEG) Urine Ethyl Alcohol Neg (NEG) Magnesium Level 1.9mg/dL (1.8-2.4) Laboratory Tests Test 08/15/16 05:57 White Blood Count 12.9x10^3/uL (4.0-11.0) Red Blood Count 3.15x10^6/uL (3.50-5.40) Hemoglobin 10.8g/dL (12.0-15.5) Hematocrit 31.7% (36.0-47.0) Mean Corpuscular Volume 101fL (79-100) Mean Corpuscular Hemoglobin 34pg (25-35) Mean Corpuscular Hemoglobin Concent 34g/dL (31-37) Red Cell Distribution Width 15.6% (11.5-14.5) Platelet Count 154x10^3/uL (140-400) Neutrophils (%) (Auto) 68% (31-73) Lymphocytes (%) (Auto) 24% (24-48) Monocytes (%) (Auto) 7% (0-9) Eosinophils (%) (Auto) 0% (0-3) Basophils (%) (Auto) 0% (0-3) Neutrophils # (Auto) 8.8x10^3uL (1.8-7.7) Lymphocytes # (Auto) 3.1x10^3/uL (1.0-4.8) Monocytes # (Auto) 1.0x10^3/uL (0.0-1.1) Eosinophils # (Auto) 0.0x10^3/uL (0.0-0.7) Basophils # (Auto) 0.0x10^3/uL (0.0-0.2) Sodium Level 146mmol/L (136-145) Potassium Level 3.5mmol/L (3.5-5.1) Chloride Level 110mmol/L (98-107) Carbon Dioxide Level 26mmol/L (21-32) Anion Gap 10 (6-14) Blood Urea Nitrogen 16mg/dL (7-20) Creatinine 0.7mg/dL (0.6-1.0) Estimated GFR (Cockcroft-Gault) 100.7 BUN/Creatinine Ratio 23 (6-20) Glucose Level 80mg/dL (70-99) Calcium Level 9.5mg/dL (8.5-10.1) Magnesium Level 1.9mg/dL (1.8-2.4) Total Bilirubin 0.6mg/dL (0.2-1.0) Aspartate Amino Transf (AST/SGOT) 22U/L (15-37) Alanine Aminotransferase (ALT/SGPT) 16U/L (14-59) Alkaline Phosphatase 79U/L (46-116) Total Protein 6.1g/dL (6.4-8.2) Albumin 3.0g/dL (3.4-5.0) Albumin/Globulin Ratio 1.0 (1.0-1.7) Meds Current Medications Amlodipine Besylate (Norvasc) 10 mg DAILY PO ; Start 08/14/16 at 09:00; Status Cancel Desflurane (Suprane) 90 ml STK-MED ONCE IH ; Start 08/14/16 at 09:35; Stop 08/14 at 09:36; Status DC Dexamethasone Sodium Phosphate (Decadron) 20 mg STK-MED ONCE .ROUTE ; Start at 09:35; Stop 08/14/16 at 09:36; Status DC Ephedrine Sulfate 50 mg STK-MED ONCE IV ; Start 08/14/16 at 12:13; Stop at 12:14; Status DC Fentanyl Citrate (Fentanyl 2ml Vial) 50 mcg PRN Q3HRS PRN IV MODERATE PAIN Last administered on 08/15/16 06:10; Start 08/15/16 at 05:23 Fentanyl Citrate (Fentanyl 2ml Vial) 75 mcg PRN Q3HRS PRN IV SEVERE PAIN; Start 08/15/16 at 05:23 Fentanyl Citrate (Fentanyl 2ml Vial) 100 mcg STK-MED ONCE .ROUTE ; Start at 09:35; Stop 08/14/16 at 09:36; Status DC Lidocaine (Lidoderm) 1 patch DAILY TD Last administered on 08/14/16 16:49; Start 08/14/16 at 09:00 Lidocaine HCl 100 mg 100 mg STK-MED ONCE .ROUTE ; Start 08/14/16 at 09:35; Stop 08/14/16 at 09:36; Status DC Multi-Ingred Cream/Lotion/Oil/ Oint (Artificial Tears Eye Oint) 7 hansel STK-MED ONCE .ROUTE ; Start 08/14/16 at 09:35; Stop 08/14/16 at 09:36; Status DC Ondansetron HCl 4 mg 4 mg STK-MED ONCE .ROUTE ; Start 08/14/16 at 09:35; Stop at 09:36; Status DC Pantoprazole Sodium 40 mg 40 mg DAILYAC PO Last administered on 08/15/16 06:12 ; Start 08/14/16 at 08:30 Phenylephrine HCl (John-Synephrine Inj) 10 mg STK-MED ONCE .ROUTE ; Start at 11:53; Stop 08/14/16 at 11:54; Status DC Propofol (Diprivan) 20 ml @ As Directed STK-MED ONCE IV ; Start 08/14/16 at 09: 35; Stop 08/14/16 at 09:36; Status DC Propofol (Diprivan) 50 ml @ As Directed STK-MED ONCE IV ; Start 08/14/16 at 09: 35; Stop 08/14/16 at 09:36; Status DC Remifentanil HCl (Ultiva) 2 mg STK-MED ONCE IV ; Start 08/14/16 at 09:36; Stop 08/14/16 at 09:37; Status DC Rocuronium [place] (Zemuron) 50 mg STK-MED ONCE .ROUTE ; Start 08/14/16 at 09:36 ; Stop 08/14/16 at 09:37; Status DC Sodium Chloride (Sodium Chloride) 50 ml STK-MED ONCE IJ ; Start 08/14/16 at 09: 35; Stop 08/14/16 at 09:36; Status DC Vancomycin HCl 250 ml @ 250 mls/hr 1X PREOP PRN IV Pre Op Last administered on 08/14/16 11:51; Start 08/15/16 at 06:00; Stop 08/15/16 at 18:00 Vancomycin HCl 250 ml @ As Directed STK-MED ONCE .ROUTE ; Start 08/14/16 at 09: 03; Stop 08/14/16 at 09:04; Status DC Assessment Assessment 1. Severe spinal stenosis with DDD mainly involving L4-L5 and L5-S1 with radiculopathy R >L s/p Bilateral hemilaminectomies with microdecompression of dura and nerve root. 2. tendinits sprain R foot drop r/t #1 3. HTN 4. +cocaine per urine drug screen 5. 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 hypokalemia 7. COPD 8. + heart murmur 9. bilateral trochanteric bursitis PLAN: back pain with radiculopathy neurosurgeon consult surgery today 08/14 s/p surgery POD 1 HTN continue home med Heart murmur check ECHO: diastolic EF normal mild MR. d/w Vikki-at mod risk with co morbidities: anesthesia to determine if proceed with surgery: anesthesia eval ECHO and surgery to be done. COPD nebulizer prn O2 prn maintain Sat >90% hypokalemia stat BMP pending-surgery at 1230-not done Admit K 3.1 08/15 3.5 Na 144 146 leukocytosis/anemia Admit WBC 7.0 08/15 12.9 Hgb 12.1 10.8 leukocytosis - steroid induced + urine drug screen cocaine d/w Asya DVT/GI prophylaxis SCD/TARIQ PPI mild azotemia secondary dehydration, not ARF or BRETT Admit Na 144 08/15 146 BUN 21 16 Cr 1.[address] Ferrera will discuss with pt. -he will not do pain management out patient +urine drug screen -cocaine For more details regarding further plans, please refer to the orders. Plan Plan For more details regarding further plans, please refer to the orders. MILLY FERRERA MD 08/15/16 1035: IM PROGRESS NOTES- Assessment Assessment D/w patient- will refer to [facility] as outpatient. SNF screen. The patient was seen and examined by me. Chart reviewed and plan of care formulated. Discussed with, reviewed and agree with [employer]'s notes, plan of care and orders with modifications as necessary. For more details regarding further plans, please refer to the orders. [employer]ROW M[employer]RY APRN Aug 15, 2016 07:57 MILLY FERRERA MD Aug 15, 2016 10:35
--- NOTE | 2016-08-15 08:13 | DISCH ---
DISCHARGE FINAL DIAGNOSIS Problems Medical Problems: (1) Acute exacerbation of chronic low back pain Status: Acute CONDITION ON DISCHARGE: Stable POST DISCHARGE ORDERS ACTIVITY ORDERS: No restrictions, Activity as tolerated WEIGHT BEARING STATUS: Full weight bearing, As tolerated DIET AFTER DISCHARGE: Cardiac OTHER WOUND INSTRUCTIONS: Wound care instructions per Dr. Vanegas FOLLOW-UP PHYSICIAN FOLLOW-UP: Dr. Merritt in 3-5 days WOODROW MISTRY APRN Aug 15, 2016 08:13
[2016-08-15] MEDS ORDERED: ACET325T9 PO (08:14)
[2016-08-15] MEDS ORDERED: GABA-586 PO (08:14)
[2016-08-15] MEDS ORDERED: AMLODIPINE BESYLATE 10 MG TABLET. ONE (08:57)
[2016-08-15] MEDS: GABAPENTIN 300 MG CAPSULE. PO SCH ×3 (09:12→22:27)
[2016-08-15] MEDS: HYDROCODONE/APAP 10/325 TABLET. PO PRN ×2 (09:13→13:38)
[2016-08-15] MEDS: AMLODIPINE BESYLATE 10 MG TABLET PO SCH (09:13)
[2016-08-15] MEDS: LIDOCAINE (700MG/PATCH) PATCH. TD SCH (09:14)
--- NOTE | 2016-08-15 10:09 | PDOC ---
PROGRESS NOTES Subjective Subjective She feels heaviness in her right lower extremity this AM. Objective Objective Vital Signs Date Time Temp Pulse Resp B/P Pulse Ox O2 Delivery O2 Flow Rate FiO2 08/15/16 09:13 87 136/85 08/15/16 07:00 97.2 18 97 Room Air 97.2 08/15/16 06:10 2.0 Intake and Output 08/15/16 07:00 Intake Total 1453 ml Output Total 25 ml Balance 1428 ml Intake Oral 480 ml IV Total 973 ml Output Estimated Blood Loss 25 ml Physical Exam Physical Exam She is sitting up in bedside recliner and had lumbar corset on.She continues with decreased sensory perception right L5 dermatome area and weaknes sof right foot dorsiflexors and tenderness to palpation over right ankle anteriolateral aspect and tendoachilles. Assessment Assessment Problems Medical Problems: (1) Acute exacerbation of chronic low back pain Status: Acute Plan Plan of Care Waiting for right AFO ad to continue physical and occupational therapy follow up and home or SNF or rehab depending on her progress after she receives AFO. Comment Review of Relevant I have reviewed the following items dakota (where applicable) has been applied. Labs Laboratory Tests Test 08/13/16 14:50 08/13/16 17:15 08/15/16 05:57 White Blood Count 7.0x10^3/uL (4.0-11.0) 12.9x10^3/uL (4.0-11.0) Red Blood Count 3.51x10^6/uL (3.50-5.40) 3.15x10^6/uL (3.50-5.40) Hemoglobin 12.1g/dL (12.0-15.5) 10.8g/dL (12.0-15.5) Hematocrit 35.4% (36.0-47.0) 31.7% (36.0-47.0) Mean Corpuscular Volume 101fL (79-100) 101fL (79-100) Mean Corpuscular Hemoglobin 35pg (25-35) 34pg (25-35) Mean Corpuscular Hemoglobin Concent 34g/dL (31-37) 34g/dL (31-37) Red Cell Distribution Width 15.7% (11.5-14.5) 15.6% (11.5-14.5) Platelet Count 177x10^3/uL (140-400) 154x10^3/uL (140-400) Neutrophils (%) (Auto) 55% (31-73) 68% (31-73) Lymphocytes (%) (Auto) 35% (24-48) 24% (24-48) Monocytes (%) (Auto) 7% (0-9) 7% (0-9) Eosinophils (%) (Auto) 2% (0-3) 0% (0-3) Basophils (%) (Auto) 1% (0-3) 0% (0-3) Neutrophils # (Auto) 3.8x10^3uL (1.8-7.7) 8.8x10^3uL (1.8-7.7) Lymphocytes # (Auto) 2.5x10^3/uL (1.0-4.8) 3.1x10^3/uL (1.0-4.8) Monocytes # (Auto) 0.5x10^3/uL (0.0-1.1) 1.0x10^3/uL (0.0-1.1) Eosinophils # (Auto) 0.1x10^3/uL (0.0-0.7) 0.0x10^3/uL (0.0-0.7) Basophils # (Auto) 0.0x10^3/uL (0.0-0.2) 0.0x10^3/uL (0.0-0.2) Sodium Level 144mmol/L (136-145) 146mmol/L (136-145) Potassium Level 3.1mmol/L (3.5-5.1) 3.5mmol/L (3.5-5.1) Chloride Level 107mmol/L (98-107) 110mmol/L (98-107) Carbon Dioxide Level 28mmol/L (21-32) 26mmol/L (21-32) Anion Gap 9 (6-14) 10 (6-14) Blood Urea Nitrogen 21mg/dL (7-20) 16mg/dL (7-20) Creatinine 1.2mg/dL (0.6-1.0) 0.7mg/dL (0.6-1.0) Estimated GFR (Cockcroft-Gault) 54.1 100.7 BUN/Creatinine Ratio 18 (6-20) 23 (6-20) Glucose Level 108mg/dL (70-99) 80mg/dL (70-99) Calcium Level 9.4mg/dL (8.5-10.1) 9.5mg/dL (8.5-10.1) Total Bilirubin 0.4mg/dL (0.2-1.0) 0.6mg/dL (0.2-1.0) Aspartate Amino Transf (AST/SGOT) 18U/L (15-37) 22U/L (15-37) Alanine Aminotransferase (ALT/SGPT) 14U/L (14-59) 16U/L (14-59) Alkaline Phosphatase 95U/L (46-116) 79U/L (46-116) Total Protein 7.1g/dL (6.4-8.2) 6.1g/dL (6.4-8.2) Albumin 3.5g/dL (3.4-5.0) 3.0g/dL (3.4-5.0) Albumin/Globulin Ratio 1.0 (1.0-1.7) 1.0 (1.0-1.7) Triglycerides Level 143mg/dL (0-150) Cholesterol Level 194mg/dL (0-200) LDL Cholesterol, Calculated 117mg/dL (0-100) VLDL Cholesterol, Calculated 29mg/dL (0-40) HDL Cholesterol 48mg/dL (40-60) Cholesterol/HDL Ratio 4.0 Thyroid Stimulating Hormone (TSH) 1.341uIU/mL (0.358-3.74) Urine Collection Type Unknown Urine Color Yellow Urine Clarity Clear Urine pH 6.0 Urine Specific Kennedy >=1.030 Urine Protein 30mg/dL (NEG-TRACE) Urine Glucose (UA) Negativemg/dL (NEG) Urine Ketones (Stick) Negativemg/dL (NEG) Urine Blood Negative (NEG) Urine Nitrite Negative (NEG) Urine Bilirubin Small (NEG) Urine Urobilinogen Dipstick 1.0mg/dL (0.2 mg/dL) Urine Leukocyte Esterase Negative (NEG) Urine RBC 0/HPF (0-2) Urine WBC 1-4/HPF (0-4) Urine Squamous Epithelial Cells Mod/LPF Urine Bacteria Few/HPF (0-FEW) Urine Hyaline Casts Many/HPF Urine Mucus Mod/LPF Urine Opiates Screen Neg (NEG) Urine Methadone Screen Neg (NEG) Urine Barbiturates Neg (NEG) Urine Phencyclidine Screen Neg (NEG) Urine Amphetamine/Methamphetamine Neg (NEG) Urine Benzodiazepines Screen Neg (NEG) Urine Cocaine Screen Pos (NEG) Urine Cannabinoids Screen Pos (NEG) Urine Ethyl Alcohol Neg (NEG) Magnesium Level 1.9mg/dL (1.8-2.4) Laboratory Tests Test 08/15/16 05:57 White Blood Count 12.9x10^3/uL (4.0-11.0) Red Blood Count 3.15x10^6/uL (3.50-5.40) Hemoglobin 10.8g/dL (12.0-15.5) Hematocrit 31.7% (36.0-47.0) Mean Corpuscular Volume 101fL (79-100) Mean Corpuscular Hemoglobin 34pg (25-35) Mean Corpuscular Hemoglobin Concent 34g/dL (31-37) Red Cell Distribution Width 15.6% (11.5-14.5) Platelet Count 154x10^3/uL (140-400) Neutrophils (%) (Auto) 68% (31-73) Lymphocytes (%) (Auto) 24% (24-48) Monocytes (%) (Auto) 7% (0-9) Eosinophils (%) (Auto) 0% (0-3) Basophils (%) (Auto) 0% (0-3) Neutrophils # (Auto) 8.8x10^3uL (1.8-7.7) Lymphocytes # (Auto) 3.1x10^3/uL (1.0-4.8) Monocytes # (Auto) 1.0x10^3/uL (0.0-1.1) Eosinophils # (Auto) 0.0x10^3/uL (0.0-0.7) Basophils # (Auto) 0.0x10^3/uL (0.0-0.2) Sodium Level 146mmol/L (136-145) Potassium Level 3.5mmol/L (3.5-5.1) Chloride Level 110mmol/L (98-107) Carbon Dioxide Level 26mmol/L (21-32) Anion Gap 10 (6-14) Blood Urea Nitrogen 16mg/dL (7-20) Creatinine 0.7mg/dL (0.6-1.0) Estimated GFR (Cockcroft-Gault) 100.7 BUN/Creatinine Ratio 23 (6-20) Glucose Level 80mg/dL (70-99) Calcium Level 9.5mg/dL (8.5-10.1) Magnesium Level 1.9mg/dL (1.8-2.4) Total Bilirubin 0.6mg/dL (0.2-1.0) Aspartate Amino Transf (AST/SGOT) 22U/L (15-37) Alanine Aminotransferase (ALT/SGPT) 16U/L (14-59) Alkaline Phosphatase 79U/L (46-116) Total Protein 6.1g/dL (6.4-8.2) Albumin 3.0g/dL (3.4-5.0) Albumin/Globulin Ratio 1.0 (1.0-1.7) Medications Current Medications Gabapentin (Neurontin) 300 mg TID PO Last administered on 08/15/16 09:12; Start 08/13/16 at 15:00 Acetaminophen/ Hydrocodone Bitart (Lortab 10/325) 1 tab PRN Q6HRS PRN PO PAIN Last administered on 08/15/16 09:13; Start 08/13/16 at 14:30 Fentanyl Citrate (Fentanyl 2ml Vial) 50 mcg PRN Q3HRS PRN IV PAIN Last administered on 08/14/16 08:35; Start 08/13/16 at 14:30; Stop 08/15/16 at 05:23 ; Status DC Lidocaine (Lidoderm) 1 patch DAILY TD Last administered on 08/15/16 09:14; Start 08/14/16 at 09:00 Fentanyl Citrate (Fentanyl 2ml Vial) 75 mcg PRN Q3HRS PRN IV PAIN Last administered on 08/14/16 10:21; Start 08/13/16 at 14:45; Stop 08/15/16 at 05:23 ; Status DC Acetaminophen (Tylenol) 650 mg PRN Q6HRS PRN PO MILD PAIN; Start 08/13/16 at 16 :15 Ondansetron HCl (Zofran) 4 mg PRN Q6HRS PRN IV Nausea; Start 08/14/16 at 07:00 ; Stop 08/15/16 at 06:59; Status DC Fentanyl Citrate (Fentanyl 2ml Vial) 25 mcg PRN Q5MIN PRN IV MILD PAIN; Start 08/14/16 at 07:00; Stop 08/15/16 at 06:59; Status DC Fentanyl Citrate (Fentanyl 2ml Vial) 50 mcg PRN Q5MIN PRN IV MODERATE PAIN Last administered on 08/14/16 14:06; Start 08/14/16 at 07:00; Stop 08/15/16 at 06:59; Status DC Morphine Sulfate 1 mg 1 mg PRN Q10MIN PRN IV SEVERE PAIN Last administered on 14:27; Start 08/14/16 at 07:00; Stop 08/15/16 at 06:59; Status DC Lactated Ringer's (Iv Lactated Ringers) 1,000 ml @ 0 mls/hr Q0M IV ; Start at 07:00; Stop 08/14/16 at 18:59; Status DC Lidocaine HCl 2 ml 1X PRN PRN ID IV START; Start 08/14/16 at 07:00; Stop at 06:59; Status DC Hydromorphone HCl (Dilaudid) 0.5 mg PRN Q10MIN PRN IV SEVERE PAIN, Second choice; Start 08/14/16 at 07:00; Stop 08/15/16 at 06:59; Status DC Prochlorperazine Edisylate 5 mg 5 mg PACU PRN PRN IV NAUSEA; Start 08/14/16 at 07:00; Stop 08/15/16 at 06:59; Status DC Bacitracin/Sodium Chloride (Bacitracin/Iv Sodium Chloride 0.9% 1000ml Bag) 1, 000 ml @ 1,000 mls/hr 1X PERIOP ONCE IRR Last administered on 08/14/16 12:12 ; Start 08/14/16 at 06:00; Stop 08/14/16 at 06:59; Status DC Amlodipine Besylate (Norvasc) 10 mg DAILY PO Last administered on 08/15/16 09: 13; Start 08/13/16 at 20:00 Clonidine HCl (Catapres) 0.1 mg PRN Q6HRS PRN PO HYPERTENSION, SEE COMMENTS Last administered on 08/13/16 23:44; Start 08/13/16 at 21:15 Thrombin 20,000 unit STK-MED ONCE TP Last administered on 08/14/16 12:12; Start 08/14/16 at 06:43; Stop 08/14/16 at 06:44; Status DC Gelatin (Gelfoam Size 100) 1 each STK-MED ONCE .ROUTE Last administered on 12:12; Start 08/14/16 at 06:43; Stop 08/14/16 at 06:44; Status DC Ketorolac Tromethamine (Toradol For Or Only) 60 mg STK-MED ONCE .ROUTE Last administered on 08/14/16 12:12; Start 08/14/16 at 06:43; Stop 08/14/16 at 06:44 ; Status DC Bupivacaine HCl/ Epinephrine Bitart (Sensorcain-Mpf Epi 0.5%-[id number]) 30 ml STK -MED ONCE .ROUTE Last administered on 08/14/16 12:12; Start 08/14/16 at 06:44 ; Stop 08/14/16 at 06:45; Status DC Amlodipine Besylate (Norvasc) 10 mg DAILY PO ; Start 08/14/16 at 09:00; Status Cancel Pantoprazole Sodium 40 mg 40 mg DAILYAC PO Last administered on 08/15/16 06:12 ; Start 08/14/16 at 08:30 Vancomycin HCl 250 ml @ As Directed STK-MED ONCE .ROUTE ; Start 08/14/16 at 09: 03; Stop 08/14/16 at 09:04; Status DC Vancomycin HCl 250 ml @ 250 mls/hr 1X PREOP PRN IV Pre Op Last administered on 08/14/16 11:51; Start 08/15/16 at 06:00; Stop 08/15/16 at 18:00 Dexamethasone Sodium Phosphate (Decadron) 20 mg STK-MED ONCE .ROUTE ; Start at 09:35; Stop 08/14/16 at 09:36; Status DC Ondansetron HCl 4 mg 4 mg STK-MED ONCE .ROUTE ; Start 08/14/16 at 09:35; Stop at 09:36; Status DC Propofol (Diprivan) 20 ml @ As Directed STK-MED ONCE IV ; Start 08/14/16 at 09: 35; Stop 08/14/16 at 09:36; Status DC Lidocaine HCl 100 mg 100 mg STK-MED ONCE .ROUTE ; Start 08/14/16 at 09:35; Stop 08/14/16 at 09:36; Status DC Propofol (Diprivan) 50 ml @ As Directed STK-MED ONCE IV ; Start 08/14/16 at 09: 35; Stop 08/14/16 at 09:36; Status DC Multi-Ingred Cream/Lotion/Oil/ Oint (Artificial Tears Eye Oint) 7 hansel STK-MED ONCE .ROUTE ; Start 08/14/16 at 09:35; Stop 08/14/16 at 09:36; Status DC Sodium Chloride (Sodium Chloride) 50 ml STK-MED ONCE IJ ; Start 08/14/16 at 09: 35; Stop 08/14/16 at 09:36; Status DC Desflurane (Suprane) 90 ml STK-MED ONCE IH ; Start 08/14/16 at 09:35; Stop 08/14 at 09:36; Status DC Fentanyl Citrate (Fentanyl 2ml Vial) 100 mcg STK-MED ONCE .ROUTE ; Start at 09:35; Stop 08/14/16 at 09:36; Status DC Remifentanil HCl (Ultiva) 2 mg STK-MED ONCE IV ; Start 08/14/16 at 09:36; Stop 08/14/16 at 09:37; Status DC Rocuronium [place] Pos (Zemuron) 50 mg STK-MED ONCE .ROUTE ; Start 08/14/16 at 09:36 ; Stop 08/14/16 at 09:37; Status DC Phenylephrine HCl (John-Synephrine Inj) 10 mg STK-MED ONCE .ROUTE ; Start at 11:53; Stop 08/14/16 at 11:54; Status DC Ephedrine Sulfate 50 mg STK-MED ONCE IV ; Start 08/14/16 at 12:13; Stop at 12:14; Status DC Fentanyl Citrate (Fentanyl 2ml Vial) 50 mcg PRN Q3HRS PRN IV MODERATE PAIN Last administered on 08/15/16t 06:10; Start 08/15/16 at 05:23 Fentanyl Citrate (Fentanyl 2ml Vial) 75 mcg PRN Q3HRS PRN IV SEVERE PAIN; Start 08/15/16 at 05:23 Amlodipine Besylate (Norvasc) 10 mg STK-MED ONCE .ROUTE ; Start 08/15/16 at 08: 57; Stop 08/15/16 at 08:58; Status DC Active Scripts Active Gabapentin 300 Mg Capsule 300 Mg PO TID Tylenol (Acetaminophen) 325 Mg Tablet 650 Mg PO PRN Q6HRS PRN Reported Amlodipine Besylate 10 Mg Tablet 1 Tab PO DAILY Vitals/I & O Vital Sign - Last 24 Hours 08/14/16 08/14/16 08/14/16 08/14/16 10:21 13:31 13:31 13:46 Temp 98.8 98.8 Pulse 75 68 Resp 13 20 20 B/P 106/76 122/72 Pulse Ox 99 100 100 O2 Delivery Room Air Simple Mask Mask Simple Mask O2 Flow Rate 10 10 10 08/14/16 08/14/16 08/14/16 08/14/16 13:56 14:01 14:06 14:08 Temp 97.7 97.7 Pulse 93 90 Resp 20 20 20 22 B/P 125/75 103/69 Pulse Ox 100 100 99 97 O2 Delivery Simple Mask Simple Mask Simple Mask Room Air O2 Flow Rate 10.0 10 10.0 08/14/16 08/14/16 08/14/16 08/14/16 14:19 14:20 14:23 14:27 Temp 97.8 97.8 Pulse 68 Resp 20 22 20 B/P 102/68 Pulse Ox 99 95 94 98 O2 Delivery Room Air Nasal Cannula Room Air Room Air O2 Flow Rate 2.0 08/14/16 08/14/16 08/14/16 08/14/16 14:27 14:30 14:40 14:46 Pulse 71 64 94 Resp 18 18 B/P 98/68 119/72 Pulse Ox 92 95 95 O2 Delivery Room Air Room Air Room Air O2 Flow Rate 2.0 08/14/16 08/14/16 08/14/16 08/14/16 15:00 15:00 15:15 15:30 Pulse 61 60 60 B/P 116/64 108/57 112/57 Pulse Ox 94 100 92 92 O2 Delivery Room Air Room Air Room Air Room Air 308/14/16 08/14/16 08/14/16 16:00 16:47 17:00 17:49 Pulse 77 78 Resp 16 B/P 118/73 124/74 Pulse Ox 95 94 O2 Delivery Room Air Room Air Room Air Room Air 08/14/16 08/14/16 08/14/16 08/14/16 18:00 20:00 23:05 23:58 Temp 97.5 98.4 97.5 98.4 Pulse 100 93 97 Resp B/P 111/71 121/73 130/75 Pulse Ox 95 99 92 92 O2 Delivery Room Air Room Air Room Air Room Air O2 Flow Rate 2.0 08/15/16 08/15/16 08/15/16 08/15/16 00:58 03:02 06:10 06:40 Temp 98.4 98.4 Pulse 78 Resp 16 B/P 119/69 Pulse Ox 92 96 96 96 O2 Delivery Room Air Room Air O2 Flow Rate 2.0 08/15/16 08/15/16 07:00 09:13 Temp 97.2 97.2 Pulse 87 87 Resp 18 B/P 136/85 136/85 Pulse Ox 97 O2 Delivery Room Air Intake and Output 08/14/16 08/14/16 08/15/16 15:00 23:00 07:00 Intake Total 850 ml 363 ml 240 ml Output Total 25 ml Balance 825 ml 363 ml 240 ml RAUL DEVI MD Aug 15, 2016 10:09
--- NOTE | 2016-08-15 10:17 | PDOC ---
PROGRESS NOTES Subjective Subjective up in chair right leg pain still but improved since surgery Objective Objective Vital Signs Date Time Temp Pulse Resp B/P Pulse Ox O2 Delivery O2 Flow Rate FiO2 08/15/16 09:13 87 136/85 08/15/16 07:00 97.2 18 97 Room Air 97.2 08/15/16 06:10 2.0 Intake and Output 08/15/16 07:00 Intake Total 1453 ml Output Total 25 ml Balance 1428 ml Intake Oral 480 ml IV Total 973 ml Output Estimated Blood Loss 25 ml Physical Exam General: Alert, Oriented X3, Cooperative, No acute distress MUSCULOSKELETAL: Other (PETERSON) Neuro: Normal speech, Other (continued right dorsiflexion weakness) Psych/Mental Status: Mental status NL Assessment Assessment Problems Medical Problems: (1) Acute exacerbation of chronic low back pain Status: Acute Plan Plan of Care encouraged increased activity as tolerated PT Comment Review of Relevant I have reviewed the following items [place] (where applicable) has been applied. Labs Laboratory Tests Test 08/13/16 14:50 08/13/16 17:15 08/15/16 05:57 White Blood Count 7.0x10^3/uL (4.0-11.0) 12.9x10^3/uL (4.0-11.0) Red Blood Count 3.51x10^6/uL (3.50-5.40) 3.15x10^6/uL (3.50-5.40) Hemoglobin 12.1g/dL (12.0-15.5) 10.8g/dL (12.0-15.5) Hematocrit 35.4% (36.0-47.0) 31.7% (36.0-47.0) Mean Corpuscular Volume 101fL (79-100) 101fL (79-100) Mean Corpuscular Hemoglobin 35pg (25-35) 34pg (25-35) Mean Corpuscular Hemoglobin Concent 34g/dL (31-37) 34g/dL (31-37) Red Cell Distribution Width 15.7% (11.5-14.5) 15.6% (11.5-14.5) Platelet Count 177x10^3/uL (140-400) 154x10^3/uL (140-400) Neutrophils (%) (Auto) 55% (31-73) 68% (31-73) Lymphocytes (%) (Auto) 35% (24-48) 24% (24-48) Monocytes (%) (Auto) 7% (0-9) 7% (0-9) Eosinophils (%) (Auto) 2% (0-3) 0% (0-3) Basophils (%) (Auto) 1% (0-3) 0% (0-3) Neutrophils # (Auto) 3.8x10^3uL (1.8-7.7) 8.8x10^3uL (1.8-7.7) Lymphocytes # (Auto) 2.5x10^3/uL (1.0-4.8) 3.1x10^3/uL (1.0-4.8) Monocytes # (Auto) 0.5x10^3/uL (0.0-1.1) 1.0x10^3/uL (0.0-1.1) Eosinophils # (Auto) 0.1x10^3/uL (0.0-0.7) 0.0x10^3/uL (0.0-0.7) Basophils # (Auto) 0.0x10^3/uL (0.0-0.2) 0.0x10^3/uL (0.0-0.2) Sodium Level 144mmol/L (136-145) 146mmol/L (136-145) Potassium Level 3.1mmol/L (3.5-5.1) 3.5mmol/L (3.5-5.1) Chloride Level 107mmol/L (98-107) 110mmol/L (98-107) Carbon Dioxide Level 28mmol/L (21-32) 26mmol/L (21-32) Anion Gap 9 (6-14) 10 (6-14) Blood Urea Nitrogen 21mg/dL (7-20) 16mg/dL (7-20) Creatinine 1.2mg/dL (0.6-1.0) 0.7mg/dL (0.6-1.0) Estimated GFR (Cockcroft-Gault) 54.1 100.7 BUN/Creatinine Ratio 18 (6-20) 23 (6-20) Glucose Level 108mg/dL (70-99) 80mg/dL (70-99) Calcium Level 9.4mg/dL (8.5-10.1) 9.5mg/dL (8.5-10.1) Total Bilirubin 0.4mg/dL (0.2-1.0) 0.6mg/dL (0.2-1.0) Aspartate Amino Transf (AST/SGOT) 18U/L (15-37) 22U/L (15-37) Alanine Aminotransferase (ALT/SGPT) 14U/L (14-59) 16U/L (14-59) Alkaline Phosphatase 95U/L (46-116) 79U/L (46-116) Total Protein 7.1g/dL (6.4-8.2) 6.1g/dL (6.4-8.2) Albumin 3.5g/dL (3.4-5.0) 3.0g/dL (3.4-5.0) Albumin/Globulin Ratio 1.0 (1.0-1.7) 1.0 (1.0-1.7) Triglycerides Level 143mg/dL (0-150) Cholesterol Level 194mg/dL (0-200) LDL Cholesterol, Calculated 117mg/dL (0-100) VLDL Cholesterol, Calculated 29mg/dL (0-40) HDL Cholesterol 48mg/dL (40-60) Cholesterol/HDL Ratio 4.0 Thyroid Stimulating Hormone (TSH) 1.341uIU/mL (0.358-3.74) Urine Collection Type Unknown Urine Color Yellow Urine Clarity Clear Urine pH 6.0 Urine Specific [place] >=1.030 Urine Protein 30mg/dL (NEG-TRACE) Urine Glucose (UA) Negativemg/dL (NEG) Urine Ketones (Stick) Negativemg/dL (NEG) Urine Blood Negative (NEG) Urine Nitrite Negative (NEG) Urine Bilirubin Small (NEG) Urine Urobilinogen Dipstick 1.0mg/dL (0.2 mg/dL) Urine Leukocyte Esterase Negative (NEG) Urine RBC 0/HPF (0-2) Urine WBC 1-4/HPF (0-4) Urine Squamous Epithelial Cells Mod/LPF Urine Bacteria Few/HPF (0-FEW) Urine Hyaline Casts Many/HPF Urine Mucus Mod/LPF Urine Opiates Screen Neg (NEG) Urine Methadone Screen Neg (NEG) Urine Barbiturates Neg (NEG) Urine Phencyclidine Screen Neg (NEG) Urine Amphetamine/Methamphetamine Neg (NEG) Urine Benzodiazepines Screen Neg (NEG) Urine Cocaine Screen Pos (NEG) Urine Cannabinoids Screen Pos (NEG) Urine Ethyl Alcohol Neg (NEG) Magnesium Level 1.9mg/dL (1.8-2.4) Laboratory Tests Test 08/15/16 05:57 White Blood Count 12.9x10^3/uL (4.0-11.0) Red Blood Count 3.15x10^6/uL (3.50-5.40) Hemoglobin 10.8g/dL (12.0-15.5) Hematocrit 31.7% (36.0-47.0) Mean Corpuscular Volume 101fL (79-100) Mean Corpuscular Hemoglobin 34pg (25-35) Mean Corpuscular Hemoglobin Concent 34g/dL (31-37) Red Cell Distribution Width 15.6% (11.5-14.5) Platelet Count 154x10^3/uL (140-400) Neutrophils (%) (Auto) 68% (31-73) Lymphocytes (%) (Auto) 24% (24-48) Monocytes (%) (Auto) 7% (0-9) Eosinophils (%) (Auto) 0% (0-3) Basophils (%) (Auto) 0% (0-3) Neutrophils # (Auto) 8.8x10^3uL (1.8-7.7) Lymphocytes # (Auto) 3.1x10^3/uL (1.0-4.8) Monocytes # (Auto) 1.0x10^3/uL (0.0-1.1) Eosinophils # (Auto) 0.0x10^3/uL (0.0-0.7) Basophils # (Auto) 0.0x10^3/uL (0.0-0.2) Sodium Level 146mmol/L (136-145) Potassium Level 3.5mmol/L (3.5-5.1) Chloride Level 110mmol/L (98-107) Carbon Dioxide Level 26mmol/L (21-32) Anion Gap 10 (6-14) Blood Urea Nitrogen 16mg/dL (7-20) Creatinine 0.7mg/dL (0.6-1.0) Estimated GFR (Cockcroft-Gault) 100.7 BUN/Creatinine Ratio 23 (6-20) Glucose Level 80mg/dL (70-99) Calcium Level 9.5mg/dL (8.5-10.1) Magnesium Level 1.9mg/dL (1.8-2.4) Total Bilirubin 0.6mg/dL (0.2-1.0) Aspartate Amino Transf (AST/SGOT) 22U/L (15-37) Alanine Aminotransferase (ALT/SGPT) 16U/L (14-59) Alkaline Phosphatase 79U/L (46-116) Total Protein 6.1g/dL (6.4-8.2) Albumin 3.0g/dL (3.4-5.0) Albumin/Globulin Ratio 1.0 (1.0-1.7) Medications Current Medications Gabapentin (Neurontin) 300 mg TID PO Last administered on 08/15/16 09:12; Start 08/13/16 at 15:00 Acetaminophen/ Hydrocodone Bitart (Lortab 10/325) 1 tab PRN Q6HRS PRN PO PAIN Last administered on 08/15/16 09:13; Start 08/13/16 at 14:30 Fentanyl Citrate (Fentanyl 2ml Vial) 50 mcg PRN Q3HRS PRN IV PAIN Last administered on 08/14/16 08:35; Start 08/13/16 at 14:30; Stop 08/15/16 at 05:23 ; Status DC Lidocaine (Lidoderm) 1 patch DAILY TD Last administered on 08/15/16 09:14; Start 08/14/16 at 09:00 Fentanyl Citrate (Fentanyl 2ml Vial) 75 mcg PRN Q3HRS PRN IV PAIN Last administered on 08/14/16 10:21; Start 08/13/16 at 14:45; Stop 08/15/16 at 05:23 ; Status DC Acetaminophen (Tylenol) 650 mg PRN Q6HRS PRN PO MILD PAIN; Start 08/13/16 at 16 :15 Ondansetron HCl (Zofran) 4 mg PRN Q6HRS PRN IV Nausea; Start 08/14/16 at 07:00 ; Stop 08/15/16 at 06:59; Status DC Fentanyl Citrate (Fentanyl 2ml Vial) 25 mcg PRN Q5MIN PRN IV MILD PAIN; Start 08/14/16 at 07:00; Stop 08/15/16 at 06:59; Status DC Fentanyl Citrate (Fentanyl 2ml Vial) 50 mcg PRN Q5MIN PRN IV MODERATE PAIN Last administered on 08/14/16 14:06; Start 08/14/16 at 07:00; Stop 08/15/16 at 06:59; Status DC Morphine Sulfate 1 mg 1 mg PRN Q10MIN PRN IV SEVERE PAIN Last administered on 14:27; Start 08/14/16 at 07:00; Stop 08/15/16 at 06:59; Status DC Lactated Ringer's (Iv Lactated Ringers) 1,000 ml @ 0 mls/hr Q0M IV ; Start at 07:00; Stop 08/14/16 at 18:59; Status DC Lidocaine HCl 2 ml 1X PRN PRN ID IV START; Start 08/14/16 at 07:00; Stop at 06:59; Status DC Hydromorphone HCl (Dilaudid) 0.5 mg PRN Q10MIN PRN IV SEVERE PAIN, Second choice; Start 08/14/16 at 07:00; Stop 08/15/16 at 06:59; Status DC Prochlorperazine Edisylate 5 mg 5 mg PACU PRN PRN IV NAUSEA; Start 08/14/16 at 07:00; Stop 08/15/16 at 06:59; Status DC Bacitracin/Sodium Chloride (Bacitracin/Iv Sodium Chloride 0.9% 1000ml Bag) 1, 000 ml @ 1,000 mls/hr 1X PERIOP ONCE IRR Last administered on 08/14/16 12:12 ; Start 08/14/16 at 06:00; Stop 08/14/16 at 06:59; Status DC Amlodipine Besylate (Norvasc) 10 mg DAILY PO Last administered on 08/15/16 09: 13; Start 08/13/16 at 20:00 Clonidine HCl (Catapres) 0.1 mg PRN Q6HRS PRN PO HYPERTENSION, SEE COMMENTS Last administered on 08/13/16 23:44; Start 08/13/16 at 21:15 Thrombin 20,000 unit STK-MED ONCE TP Last administered on 08/14/16 12:12; Start 08/14/16 at 06:43; Stop 08/14/16 at 06:44; Status DC Gelatin (Gelfoam Size 100) 1 each STK-MED ONCE .ROUTE Last administered on 12:12; Start 08/14/16 at 06:43; Stop 08/14/16 at 06:44; Status DC Ketorolac Tromethamine (Toradol For Or Only) 60 mg STK-MED ONCE .ROUTE Last administered on 08/14/16 12:12; Start 08/14/16 at 06:43; Stop 08/14/16 at 06:44 ; Status DC Bupivacaine HCl/ Epinephrine Bitart (Sensorcain-Mpf Epi 0.5%-1:[id number]) 30 ml STK -MED ONCE .ROUTE Last administered on 08/14/16 12:12; Start 08/14/16 at 06:44 ; Stop 08/14/16 at 06:45; Status DC Amlodipine Besylate (Norvasc) 10 mg DAILY PO ; Start 08/14/16 at 09:00; Status Cancel Pantoprazole Sodium 40 mg 40 mg DAILYAC PO Last administered on 08/15/16 06:12 ; Start 08/14/16 at 08:30 Vancomycin HCl 250 ml @ As Directed STK-MED ONCE .ROUTE ; Start 08/14/16 at 09: 03; Stop 08/14/16 at 09:04; Status DC Vancomycin HCl 250 ml @ 250 mls/hr 1X PREOP PRN IV Pre Op Last administered on 08/14/16 11:51; Start 08/15/16 at 06:00; Stop 08/15/16 at 18:00 Dexamethasone Sodium Phosphate (Decadron) 20 mg STK-MED ONCE .ROUTE ; Start at 09:35; Stop 08/14/16 at 09:36; Status DC Ondansetron HCl 4 mg 4 mg STK-MED ONCE .ROUTE ; Start 08/14/16 at 09:35; Stop at 09:36; Status DC Propofol (Diprivan) 20 ml @ As Directed STK-MED ONCE IV ; Start 08/14/16 at 09: 35; Stop 08/14/16 at 09:36; Status DC Lidocaine HCl 100 mg 100 mg STK-MED ONCE .ROUTE ; Start 08/14/16 at 09:35; Stop 08/14/16 at 09:36; Status DC Propofol (Diprivan) 50 ml @ As Directed STK-MED ONCE IV ; Start 08/14/16 at 09: 35; Stop 08/14/16 at 09:36; Status DC Multi-Ingred Cream/Lotion/Oil/ Oint (Artificial Tears Eye Oint) 7 hansel STK-MED ONCE .ROUTE ; Start 08/14/16 at 09:35; Stop 08/14/16 at 09:36; Status DC Sodium Chloride (Sodium Chloride) 50 ml STK-MED ONCE IJ ; Start 08/14/16 at 09: 35; Stop 08/14/16 at 09:36; Status DC Desflurane (Suprane) 90 ml STK-MED ONCE IH ; Start 08/14/16 at 09:35; Stop 08/14 at 09:36; Status DC Fentanyl Citrate (Fentanyl 2ml Vial) 100 mcg STK-MED ONCE .ROUTE ; Start at 09:35; Stop 08/14/16 at 09:36; Status DC Remifentanil HCl (Ultiva) 2 mg STK-MED ONCE IV ; Start 08/14/16 at 09:36; Stop 08/14/16 at 09:37; Status DC Rocuronium Clarence (Zemuron) 50 mg STK-MED ONCE .ROUTE ; Start 08/14/16 at 09:36 ; Stop 08/14/16 at 09:37; Status DC Phenylephrine HCl (John-Synephrine Inj) 10 mg STK-MED ONCE .ROUTE ; Start at 11:53; Stop 08/14/16 at 11:54; Status DC Ephedrine Sulfate 50 mg STK-MED ONCE IV ; Start 08/14/16 at 12:13; Stop at 12:14; Status DC Fentanyl Citrate (Fentanyl 2ml Vial) 50 mcg PRN Q3HRS PRN IV MODERATE PAIN Last administered on 08/15/16t 06:10; Start 08/15/16 at 05:23 Fentanyl Citrate (Fentanyl 2ml Vial) 75 mcg PRN Q3HRS PRN IV SEVERE PAIN; Start 08/15/16 at 05:23 Amlodipine Besylate (Norvasc) 10 mg STK-MED ONCE .ROUTE ; Start 08/15/16 at 08: 57; Stop 08/15/16 at 08:58; Status DC Active Scripts Active Gabapentin 300 Mg Capsule 300 Mg PO TID Tylenol (Acetaminophen) 325 Mg Tablet 650 Mg PO PRN Q6HRS PRN Reported Amlodipine Besylate 10 Mg Tablet 1 Tab PO DAILY Vitals/I & O Vital Sign - Last 24 Hours 08/14/16 08/14/16 08/14/16 08/14/16 10:21 13:31 13:31 13:46 Temp 98.8 98.8 Pulse 75 68 Resp 13 20 20 B/P 106/76 122/72 Pulse Ox 99 100 100 O2 Delivery Room Air Simple Mask Mask Simple Mask O2 Flow Rate 10 10 10 08/14/16 08/14/16 08/14/16 08/14/16 13:56 14:01 14:06 14:08 Temp 97.7 97.7 Pulse 93 90 Resp 20 20 20 22 B/P 125/75 103/69 Pulse Ox 100 100 99 97 O2 Delivery Simple Mask Simple Mask Simple Mask Room Air O2 Flow Rate 10.0 10 10.0 08/14/16 08/14/16 08/14/16 08/14/16 14:19 14:20 14:23 14:27 Temp 97.8 97.8 Pulse 68 Resp 20 22 20 B/P 102/68 Pulse Ox 99 95 94 98 O2 Delivery Room Air Nasal Cannula Room Air Room Air O2 Flow Rate 2.0 08/14/16 08/14/16 08/14/16 08/14/16 14:27 14:30 14:40 14:46 Pulse 71 64 94 Resp 18 18 B/P 98/68 119/72 Pulse Ox 92 95 95 O2 Delivery Room Air Room Air Room Air O2 Flow Rate 2.0 08/14/16 08/14/16 08/14/16 08/14/16 15:00 15:00 15:15 15:30 Pulse 61 60 60 B/P 116/64 108/57 112/57 Pulse Ox 94 100 92 92 O2 Delivery Room Air Room Air Room Air Room Air 08/14/16 08/14/16 08/14/16 08/14/16 16:00 16:47 17:00 17:49 Pulse 77 78 Resp 16 B/P 118/73 124/74 Pulse Ox 95 94 O2 Delivery Room Air Room Air Room Air Room Air 08/14/16 08/14/16 08/14/16 08/14/16 18:00 20:00 23:05 23:58 Temp 97.5 98.4 97.5 98.4 Pulse 100 93 97 Resp B/P 111/71 121/73 130/75 Pulse Ox 95 99 92 92 O2 Delivery Room Air Room Air Room Air Room Air O2 Flow Rate 2.0 08/15/16 08/15/16 08/15/16 08/15/16 00:58 03:02 06:10 06:40 Temp 98.4 98.4 Pulse 78 Resp 16 B/P 119/69 Pulse Ox 92 96 96 96 O2 Delivery Room Air Room Air O2 Flow Rate 2.0 08/15/16 08/15/16 07:00 09:13 Temp 97.2 97.2 Pulse 87 87 Resp 18 B/P 136/85 136/85 Pulse Ox 97 O2 Delivery Room Air Intake and Output 08/14/16 08/14/16 08/15/16 15:00 23:00 07:00 Intake Total 850 ml 363 ml 240 ml Output Total 25 ml Balance 825 ml 363 ml 240 ml GUY GAMING APRN Aug 15, 2016 10:17
[2016-08-15] MEDS ORDERED: POTASSIUM CHLORIDE 20 MEQ TABLET.ER. PO ONE ×2 (10:45→15:30)
[2016-08-15 11:00] VITALS: BP 155/93
[2016-08-15 15:00] VITALS: BP 124/72
[2016-08-15 19:38] VITALS: BP 126/81
[2016-08-15 23:16] VITALS: BP 118/81
[2016-08-16] MEDS: FENTANYL PF 100 MCG/2 ML VIAL. IV PRN ×6 (00:20→20:10)
[2016-08-16 03:16] VITALS: BP 146/83
[2016-08-16] MEDS ORDERED: VANCOMYCIN 1GM IVPB FOR OMNI 250 ML IV ONE (03:30)
[2016-08-16] MEDS ORDERED: VANCOMYCIN PER PHARMACY MC PRN (03:45)
[2016-08-16] MEDS ORDERED: VANCOMYCIN PER PHARMACY MC ONE (03:45)
[2016-08-16 04:47] LABS: BASO % 0 % (0-3); EOS % 0 % (0-3); HEMATOCRIT 32.3 % (36.0-47.0); HEMOGLOBIN 10.7 g/dL (12.0-15.5); LYMPH # 2.3 x10^3/uL (1.0-4.8); LYMPH % 19 % (24-48); MEAN CORPUSCULAR HEMOGLOBIN 34 pg (25-35); MEAN CORPUSCULAR HGB CONC 33 g/dL (31-37); MEAN CORPUSCULAR VOLUME 103 fL (79-100); MONO % 9 % (0-9); NEUT % 71 % (31-73); PLATELET COUNT 138 x10^3/uL (140-400); RED BLOOD COUNT 3.13 x10^6/uL (3.50-5.40); RED CELL DISTRIBUTION WIDTH 15.4 % (11.5-14.5); WHITE BLOOD COUNT 11.9 x10^3/uL (4.0-11.0)
[2016-08-16 05:01] LABS: ALBUMIN/GLOBULIN RATIO 0.9 (1.0-1.7); CALCIUM 9.4 mg/dL (8.5-10.1); CREATININE 0.7 mg/dL (0.6-1.0); GFR 100.7; POTASSIUM 3.6 mmol/L (3.5-5.1); TOTAL BILIRUBIN 1.2 mg/dL (0.2-1.0); TOTAL PROTEIN 6.4 g/dL (6.4-8.2)
[2016-08-16 07:00] VITALS: BP 152/89
[2016-08-16] MEDS ORDERED: AMLODIPINE BESYLATE 10 MG TABLET. ONE (08:11)
[2016-08-16] MEDS: HYDROCODONE/APAP 10/325 TABLET. PO PRN ×2 (08:19→19:13)
[2016-08-16] MEDS: AMLODIPINE BESYLATE 10 MG TABLET PO SCH (08:19)
[2016-08-16] MEDS: GABAPENTIN 300 MG CAPSULE. PO SCH ×3 (08:20→21:50)
[2016-08-16] MEDS: PANTOPRAZOLE 40 MG TABLET.DR. PO SCH (08:20)
--- NOTE | 2016-08-16 08:33 | PDOC ---
FEDEWOODROW DIRECTOR OF INSTITUTIONAL RESEARCH 08/16/16 0833: IM PROGRESS NOTES- Subjective Subjective Pain is not controlled. Reports unable to reposition self w/o assistance. Pain is radiating down R leg Objective Objective mild distress Vitals Vital Signs Date Time Temp Pulse Resp B/P Pulse Ox O2 Delivery O2 Flow Rate FiO2 08/16/16 04:23 16 96 08/16/16 03:16 101.5 89 146/83 Room Air 101.5 08/15/16 20:01 2.0 Input & Output Intake and Output 08/16/16 07:00 Intake Total 990 ml Balance 990 ml Intake Oral 990 ml # Voids 3 Physical Exam Physical Exam General appearance - alert,well appearing, and in mild distress r/t pain Head - normal Chest - clear to auscultation, no wheezes, rales or rhonchi, symmetric air entry Heart - S1 and S2 normal Abdomen - soft, nontender, nondistended, no masses or organomegaly Neurological - no acute focal neurological deficit noted, continued pain LS surgical with R leg pain continued Musculoskeletal - no muscular tenderness noted Extremities - no pedal edema Skin - warm and dry Labs Laboratory Tests Test 08/15/16 05:57 08/16/16 04:00 White Blood Count 12.9x10^3/uL (4.0-11.0) 11.9x10^3/uL (4.0-11.0) Red Blood Count 3.15x10^6/uL (3.50-5.40) 3.13x10^6/uL (3.50-5.40) Hemoglobin 10.8g/dL (12.0-15.5) 10.7g/dL (12.0-15.5) Hematocrit 31.7% (36.0-47.0) 32.3% (36.0-47.0) Mean Corpuscular Volume 101fL (79-100) 103fL (79-100) Mean Corpuscular Hemoglobin 34pg (25-35) 34pg (25-35) Mean Corpuscular Hemoglobin Concent 34g/dL (31-37) 33g/dL (31-37) Red Cell Distribution Width 15.6% (11.5-14.5) 15.4% (11.5-14.5) Platelet Count 154x10^3/uL (140-400) 138x10^3/uL (140-400) Neutrophils (%) (Auto) 68% (31-73) 71% (31-73) Lymphocytes (%) (Auto) 24% (24-48) 19% (24-48) Monocytes (%) (Auto) 7% (0-9) 9% (0-9) Eosinophils (%) (Auto) 0% (0-3) 0% (0-3) Basophils (%) (Auto) 0% (0-3) 0% (0-3) Neutrophils # (Auto) 8.8x10^3uL (1.8-7.7) 8.5x10^3uL (1.8-7.7) Lymphocytes # (Auto) 3.1x10^3/uL (1.0-4.8) 2.3x10^3/uL (1.0-4.8) Monocytes # (Auto) 1.0x10^3/uL (0.0-1.1) 1.0x10^3/uL (0.0-1.1) Eosinophils # (Auto) 0.0x10^3/uL (0.0-0.7) 0.0x10^3/uL (0.0-0.7) Basophils # (Auto) 0.0x10^3/uL (0.0-0.2) 0.0x10^3/uL (0.0-0.2) Sodium Level 146mmol/L (136-145) 144mmol/L (136-145) Potassium Level 3.5mmol/L (3.5-5.1) 3.6mmol/L (3.5-5.1) Chloride Level 110mmol/L (98-107) 110mmol/L (98-107) Carbon Dioxide Level 26mmol/L (21-32) 25mmol/L (21-32) Anion Gap 10 (6-14) 9 (6-14) Blood Urea Nitrogen 16mg/dL (7-20) 12mg/dL (7-20) Creatinine 0.7mg/dL (0.6-1.0) 0.7mg/dL (0.6-1.0) Estimated GFR (Cockcroft-Gault) 100.7 100.7 BUN/Creatinine Ratio 23 (6-20) 17 (6-20) Glucose Level 80mg/dL (70-99) 98mg/dL (70-99) Calcium Level 9.5mg/dL (8.5-10.1) 9.4mg/dL (8.5-10.1) Magnesium Level 1.9mg/dL (1.8-2.4) Total Bilirubin 0.6mg/dL (0.2-1.0) 1.2mg/dL (0.2-1.0) Aspartate Amino Transf (AST/SGOT) 22U/L (15-37) 39U/L (15-37) Alanine Aminotransferase (ALT/SGPT) 16U/L (14-59) 31U/L (14-59) Alkaline Phosphatase 79U/L (46-116) 85U/L (46-116) Total Protein 6.1g/dL (6.4-8.2) 6.4g/dL (6.4-8.2) Albumin 3.0g/dL (3.4-5.0) 3.0g/dL (3.4-5.0) Albumin/Globulin Ratio 1.0 (1.0-1.7) 0.9 (1.0-1.7) Laboratory Tests Test 08/16/16 04:00 White Blood Count 11.9x10^3/uL (4.0-11.0) Red Blood Count 3.13x10^6/uL (3.50-5.40) Hemoglobin 10.7g/dL (12.0-15.5) Hematocrit 32.3% (36.0-47.0) Mean Corpuscular Volume 103fL (79-100) Mean Corpuscular Hemoglobin 34pg (25-35) Mean Corpuscular Hemoglobin Concent 33g/dL (31-37) Red Cell Distribution Width 15.4% (11.5-14.5) Platelet Count 138x10^3/uL (140-400) Neutrophils (%) (Auto) 71% (31-73) Lymphocytes (%) (Auto) 19% (24-48) Monocytes (%) (Auto) 9% (0-9) Eosinophils (%) (Auto) 0% (0-3) Basophils (%) (Auto) 0% (0-3) Neutrophils # (Auto) 8.5x10^3uL (1.8-7.7) Lymphocytes # (Auto) 2.3x10^3/uL (1.0-4.8) Monocytes # (Auto) 1.0x10^3/uL (0.0-1.1) Eosinophils # (Auto) 0.0x10^3/uL (0.0-0.7) Basophils # (Auto) 0.0x10^3/uL (0.0-0.2) Sodium Level 144mmol/L (136-145) Potassium Level 3.6mmol/L (3.5-5.1) Chloride Level 110mmol/L (98-107) Carbon Dioxide Level 25mmol/L (21-32) Anion Gap 9 (6-14) Blood Urea Nitrogen 12mg/dL (7-20) Creatinine 0.7mg/dL (0.6-1.0) Estimated GFR (Cockcroft-Gault) 100.7 BUN/Creatinine Ratio 17 (6-20) Glucose Level 98mg/dL (70-99) Calcium Level 9.4mg/dL (8.5-10.1) Total Bilirubin 1.2mg/dL (0.2-1.0) Aspartate Amino Transf (AST/SGOT) 39U/L (15-37) Alanine Aminotransferase (ALT/SGPT) 31U/L (14-59) Alkaline Phosphatase 85U/L (46-116) Total Protein 6.4g/dL (6.4-8.2) Albumin 3.0g/dL (3.4-5.0) Albumin/Globulin Ratio 0.9 (1.0-1.7) Meds Current Medications Acetaminophen/ Hydrocodone Bitart (Lortab 10/325) 1 tab PRN Q4HRS PRN PO PAIN; Start 08/15/16 at 13:39 Amlodipine Besylate (Norvasc) 10 mg STK-MED ONCE .ROUTE ; Start 08/15/16 at 08: 57; Stop 08/15/16 at 08:58; Status DC Amlodipine Besylate (Norvasc) 10 mg STK-MED ONCE .ROUTE ; Start 08/16/16 at 08: 11; Stop 08/16/16 at 08:12; Status DC Pantoprazole Sodium (Protonix) 40 mg DAILYAC PO ; Start 08/16/16 at 05:26 Potassium Chloride 20 meq 20 meq 1X ONCE PO Last administered on 08/15/16t 18: 22; Start 08/15/16 at 15:30; Stop 08/15/16 at 15:31; Status DC Potassium Chloride (Klor-Con) 20 meq 1X ONCE PO ; Start 08/15/16 at 10:45; Stop 08/15/16 at 10:46; Status Cancel Vancomycin HCl 1 each 1X ONCE MC ; Start 08/17/16 at 11:30; Stop 08/17/16 at 11: 31 Vancomycin HCl 250 ml @ 250 mls/hr 1X ONCE IV ; Start 08/16/16 at 03:30; Stop 08/16/16 at 04:29; Status UNV Vancomycin HCl (Vanco Per Pharmacy) 1 each 1X ONCE MC ; Start 08/16/16 at 03:45 ; Stop 08/16/16 at 03:46; Status UNV Vancomycin HCl 1 each 1 each PRN DAILY PRN MC SEE COMMENTS Last administered on 08/16/16 03:54; Start 08/16/16 at 03:45 Vancomycin HCl/ Sodium Chloride (Iv Sodium Chloride 0.9% 250ml) 250 ml @ 250 mls/hr Q24H IV ; Start 08/16/16 at 12:00 Assessment Assessment Assessment 1. Severe spinal stenosis with DDD mainly involving L4-L5 and L5-S1 with radiculopathy R >L s/p Bilateral hemilaminectomies with microdecompression of dura and nerve root. 2. tendinits sprain R foot drop r/t #1 3. HTN 4. +cocaine per urine drug screen 5. 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 hypokalemia 7. COPD 8. + heart murmur 9. bilateral trochanteric bursitis PLAN: back pain with radiculopathy neurosurgeon consult surgery today 08/14 s/p surgery POD 2 Pain not controlled HTN continue home med Heart murmur check ECHO: diastolic EF normal mild MR. d/w Vikki-at mod risk with co morbidities: anesthesia to determine if proceed with surgery: anesthesia eval ECHO and surgery to be done. COPD nebulizer prn O2 prn maintain Sat >90% hypokalemia stat BMP pending-surgery at 1230-not done Admit K 3.1 08/06 3.6 Na 144 144 leukocytosis/anemia Admit WBC 7.0 08/15 11.9 Hgb 12.1 10.8 leukocytosis - steroid induced Vanco per neurosurgery + urine drug screen cocaine d/w Asya ?withdrawl symptoms r/t cocaine contributing to pain levels? DVT/GI prophylaxis SCD/TARIQ PPI mild azotemia secondary dehydration, not ARF or BRETT Admit Na 144 08/16 144 BUN 21 12 Cr 1.[address] Ferrera will discuss with pt. -he will not do pain management out patient +urine drug screen -cocaine Post op: Fentanyl 50-75mg IV q3h hydrocodone/acet 10/325 q 6hr prn Plan SNU at discharge. For more details regarding further plans, please refer to the orders. Plan Plan For more details regarding further plans, please refer to the orders. MILLY FERRERA MD 08/16/16 1026: IM PROGRESS NOTES- Assessment Assessment c/o lot of pain,tingling,numbness. Will need SNF. Has rt foot drop. ? withdrawl. The patient was seen and examined by me. Chart reviewed and plan of care formulated. Discussed with, reviewed and agree with DIRECTOR OF GRANTS's notes, plan of care and orders with modifications as necessary. For more details regarding further plans, please refer to the orders. WO[employer]ROW M[employer] APRN Aug 16, 2016 08:33 MILLY FERRERA MD Aug 16, 2016 10:26
--- NOTE | 2016-08-16 10:28 | PDOC ---
Infectious Disease Note Vital Sign Vital Signs Vital Signs Date Time Temp Pulse Resp B/P Pulse Ox O2 Delivery O2 Flow Rate FiO2 08/16/16 08:20 Room Air 08/16/16 08:19 88 152/89 08/16/16 07:00 98.4 20 99 98.4 08/15/16 20:01 2.0 Labs Lab Laboratory Tests Test 08/16/16 04:00 White Blood Count 11.9x10^3/uL (4.0-11.0) Red Blood Count 3.13x10^6/uL (3.50-5.40) Hemoglobin 10.7g/dL (12.0-15.5) Hematocrit 32.3% (36.0-47.0) Mean Corpuscular Volume 103fL (79-100) Mean Corpuscular Hemoglobin 34pg (25-35) Mean Corpuscular Hemoglobin Concent 33g/dL (31-37) Red Cell Distribution Width 15.4% (11.5-14.5) Platelet Count 138x10^3/uL (140-400) Neutrophils (%) (Auto) 71% (31-73) Lymphocytes (%) (Auto) 19% (24-48) Monocytes (%) (Auto) 9% (0-9) Eosinophils (%) (Auto) 0% (0-3) Basophils (%) (Auto) 0% (0-3) Neutrophils # (Auto) 8.5x10^3uL (1.8-7.7) Lymphocytes # (Auto) 2.3x10^3/uL (1.0-4.8) Monocytes # (Auto) 1.0x10^3/uL (0.0-1.1) Eosinophils # (Auto) 0.0x10^3/uL (0.0-0.7) Basophils # (Auto) 0.0x10^3/uL (0.0-0.2) Sodium Level 144mmol/L (136-145) Potassium Level 3.6mmol/L (3.5-5.1) Chloride Level 110mmol/L (98-107) Carbon Dioxide Level 25mmol/L (21-32) Anion Gap 9 (6-14) Blood Urea Nitrogen 12mg/dL (7-20) Creatinine 0.7mg/dL (0.6-1.0) Estimated GFR (Cockcroft-Gault) 100.7 BUN/Creatinine Ratio 17 (6-20) Glucose Level 98mg/dL (70-99) Calcium Level 9.4mg/dL (8.5-10.1) Total Bilirubin 1.2mg/dL (0.2-1.0) Aspartate Amino Transf (AST/SGOT) 39U/L (15-37) Alanine Aminotransferase (ALT/SGPT) 31U/L (14-59) Alkaline Phosphatase 85U/L (46-116) Total Protein 6.4g/dL (6.4-8.2) Albumin 3.0g/dL (3.4-5.0) Albumin/Globulin Ratio 0.9 (1.0-1.7) Objective Assessment Fever Chills S/P Spine surgery HTN CKD COPD Plan Plan of Care vanc and meropenem check cultures supportive care chest ct may need ct spine JOY STEWART MD Aug 16, 2016 10:28
--- NOTE | 2016-08-16 10:37 | PDOC ---
PROGRESS NOTES Subjective Subjective She admits increased pain in her low back and increased lower extremity weakness.She is constipated for one week. Objective Objective Vital Signs Date Time Temp Pulse Resp B/P Pulse Ox O2 Delivery O2 Flow Rate FiO2 08/16/16 08:20 Room Air 08/16/16 08:19 88 152/89 08/16/16 07:00 98.4 20 99 98.4 08/15/16 20:01 2.0 Intake and Output 08/16/16 07:00 Intake Total 990 ml Balance 990 ml Intake Oral 990 ml # Voids 3 Physical Exam Physical Exam No change noted with her neurological examination of her lower extremities and she received left AFO for her foot drop. Assessment Assessment Problems Medical Problems: (1) Acute exacerbation of chronic low back pain Status: Acute Plan Plan of Care Agree with plans for transfer to SNF when medically stable. Comment Review of Relevant I have reviewed the following items dakota (where applicable) has been applied. Labs Laboratory Tests Test 08/15/16 05:57 08/16/16 04:00 White Blood Count 12.9x10^3/uL (4.0-11.0) 11.9x10^3/uL (4.0-11.0) Red Blood Count 3.15x10^6/uL (3.50-5.40) 3.13x10^6/uL (3.50-5.40) Hemoglobin 10.8g/dL (12.0-15.5) 10.7g/dL (12.0-15.5) Hematocrit 31.7% (36.0-47.0) 32.3% (36.0-47.0) Mean Corpuscular Volume 101fL (79-100) 103fL (79-100) Mean Corpuscular Hemoglobin 34pg (25-35) 34pg (25-35) Mean Corpuscular Hemoglobin Concent 34g/dL (31-37) 33g/dL (31-37) Red Cell Distribution Width 15.6% (11.5-14.5) 15.4% (11.5-14.5) Platelet Count 154x10^3/uL (140-400) 138x10^3/uL (140-400) Neutrophils (%) (Auto) 68% (31-73) 71% (31-73) Lymphocytes (%) (Auto) 24% (24-48) 19% (24-48) Monocytes (%) (Auto) 7% (0-9) 9% (0-9) Eosinophils (%) (Auto) 0% (0-3) 0% (0-3) Basophils (%) (Auto) 0% (0-3) 0% (0-3) Neutrophils # (Auto) 8.8x10^3uL (1.8-7.7) 8.5x10^3uL (1.8-7.7) Lymphocytes # (Auto) 3.1x10^3/uL (1.0-4.8) 2.3x10^3/uL (1.0-4.8) Monocytes # (Auto) 1.0x10^3/uL (0.0-1.1) 1.0x10^3/uL (0.0-1.1) Eosinophils # (Auto) 0.0x10^3/uL (0.0-0.7) 0.0x10^3/uL (0.0-0.7) Basophils # (Auto) 0.0x10^3/uL (0.0-0.2) 0.0x10^3/uL (0.0-0.2) Sodium Level 146mmol/L (136-145) 144mmol/L (136-145) Potassium Level 3.5mmol/L (3.5-5.1) 3.6mmol/L (3.5-5.1) Chloride Level 110mmol/L (98-107) 110mmol/L (98-107) Carbon Dioxide Level 26mmol/L (21-32) 25mmol/L (21-32) Anion Gap 10 (6-14) 9 (6-14) Blood Urea Nitrogen 16mg/dL (7-20) 12mg/dL (7-20) Creatinine 0.7mg/dL (0.6-1.0) 0.7mg/dL (0.6-1.0) Estimated GFR (Cockcroft-Gault) 100.7 100.7 BUN/Creatinine Ratio 23 (6-20) 17 (6-20) Glucose Level 80mg/dL (70-99) 98mg/dL (70-99) Calcium Level 9.5mg/dL (8.5-10.1) 9.4mg/dL (8.5-10.1) Magnesium Level 1.9mg/dL (1.8-2.4) Total Bilirubin 0.6mg/dL (0.2-1.0) 1.2mg/dL (0.2-1.0) Aspartate Amino Transf (AST/SGOT) 22U/L (15-37) 39U/L (15-37) Alanine Aminotransferase (ALT/SGPT) 16U/L (14-59) 31U/L (14-59) Alkaline Phosphatase 79U/L (46-116) 85U/L (46-116) Total Protein 6.1g/dL (6.4-8.2) 6.4g/dL (6.4-8.2) Albumin 3.0g/dL (3.4-5.0) 3.0g/dL (3.4-5.0) Albumin/Globulin Ratio 1.0 (1.0-1.7) 0.9 (1.0-1.7) Laboratory Tests Test 08/16/16 04:00 White Blood Count 11.9x10^3/uL (4.0-11.0) Red Blood Count 3.13x10^6/uL (3.50-5.40) Hemoglobin 10.7g/dL (12.0-15.5) Hematocrit 32.3% (36.0-47.0) Mean Corpuscular Volume 103fL (79-100) Mean Corpuscular Hemoglobin 34pg (25-35) Mean Corpuscular Hemoglobin Concent 33g/dL (31-37) Red Cell Distribution Width 15.4% (11.5-14.5) Platelet Count 138x10^3/uL (140-400) Neutrophils (%) (Auto) 71% (31-73) Lymphocytes (%) (Auto) 19% (24-48) Monocytes (%) (Auto) 9% (0-9) Eosinophils (%) (Auto) 0% (0-3) Basophils (%) (Auto) 0% (0-3) Neutrophils # (Auto) 8.5x10^3uL (1.8-7.7) Lymphocytes # (Auto) 2.3x10^3/uL (1.0-4.8) Monocytes # (Auto) 1.0x10^3/uL (0.0-1.1) Eosinophils # (Auto) 0.0x10^3/uL (0.0-0.7) Basophils # (Auto) 0.0x10^3/uL (0.0-0.2) Sodium Level 144mmol/L (136-145) Potassium Level 3.6mmol/L (3.5-5.1) Chloride Level 110mmol/L (98-107) Carbon Dioxide Level 25mmol/L (21-32) Anion Gap 9 (6-14) Blood Urea Nitrogen 12mg/dL (7-20) Creatinine 0.7mg/dL (0.6-1.0) Estimated GFR (Cockcroft-Gault) 100.7 BUN/Creatinine Ratio 17 (6-20) Glucose Level 98mg/dL (70-99) Calcium Level 9.4mg/dL (8.5-10.1) Total Bilirubin 1.2mg/dL (0.2-1.0) Aspartate Amino Transf (AST/SGOT) 39U/L (15-37) Alanine Aminotransferase (ALT/SGPT) 31U/L (14-59) Alkaline Phosphatase 85U/L (46-116) Total Protein 6.4g/dL (6.4-8.2) Albumin 3.0g/dL (3.4-5.0) Albumin/Globulin Ratio 0.9 (1.0-1.7) Medications Current Medications Gabapentin (Neurontin) 300 mg TID PO Last administered on 08/16/16 08:20; Start 08/13/16 at 15:00 Acetaminophen/ Hydrocodone Bitart (Lortab 10/325) 1 tab PRN Q6HRS PRN PO PAIN Last administered on 08/15/16 13:38; Start 08/13/16 at 14:30; Stop 08/15/16 at 13:41; Status DC Fentanyl Citrate (Fentanyl 2ml Vial) 50 mcg PRN Q3HRS PRN IV PAIN Last administered on 08/14/16 08:35; Start 08/13/16 at 14:30; Stop 08/15/16 at 05:23 ; Status DC Lidocaine (Lidoderm) 1 patch DAILY TD Last administered on 08/15/16 09:14; Start 08/14/16 at 09:00 Fentanyl Citrate (Fentanyl 2ml Vial) 75 mcg PRN Q3HRS PRN IV PAIN Last administered on 08/14/16 10:21; Start 08/13/16 at 14:45; Stop 08/15/16 at 05:23 ; Status DC Acetaminophen (Tylenol) 650 mg PRN Q6HRS PRN PO MILD PAIN Last administered on 08/16/16 03:17; Start 08/13/16 at 16:15 Ondansetron HCl (Zofran) 4 mg PRN Q6HRS PRN IV Nausea; Start 08/14/16 at 07:00 ; Stop 08/15/16 at 06:59; Status DC Fentanyl Citrate (Fentanyl 2ml Vial) 25 mcg PRN Q5MIN PRN IV MILD PAIN; Start 08/14/16 at 07:00; Stop 08/15/16 at 06:59; Status DC Fentanyl Citrate (Fentanyl 2ml Vial) 50 mcg PRN Q5MIN PRN IV MODERATE PAIN Last administered on 08/14/16 14:06; Start 08/14/16 at 07:00; Stop 08/15/16 at 06:59; Status DC Morphine Sulfate 1 mg 1 mg PRN Q10MIN PRN IV SEVERE PAIN Last administered on 14:27; Start 08/14/16 at 07:00; Stop 08/15/16 at 06:59; Status DC Lactated Ringer's (Iv Lactated Ringers) 1,000 ml @ 0 mls/hr Q0M IV ; Start at 07:00; Stop 08/14/16 at 18:59; Status DC Lidocaine HCl 2 ml 1X PRN PRN ID IV START; Start 08/14/16 at 07:00; Stop at 06:59; Status DC Hydromorphone HCl (Dilaudid) 0.5 mg PRN Q10MIN PRN IV SEVERE PAIN, Second choice; Start 08/14/16 at 07:00; Stop 08/15/16 at 06:59; Status DC Prochlorperazine Edisylate 5 mg 5 mg PACU PRN PRN IV NAUSEA; Start 08/14/16 at 07:00; Stop 08/15/16 at 06:59; Status DC Bacitracin/Sodium Chloride (Bacitracin/Iv Sodium Chloride 0.9% 1000ml Bag) 1, 000 ml @ 1,000 mls/hr 1X PERIOP ONCE IRR Last administered on 08/14/16 12:12 ; Start 08/14/16 at 06:00; Stop 08/14/16 at 06:59; Status DC Amlodipine Besylate (Norvasc) 10 mg DAILY PO Last administered on 08/16/16 08: 19; Start 08/13/16 at 20:00 Clonidine HCl (Catapres) 0.1 mg PRN Q6HRS PRN PO HYPERTENSION, SEE COMMENTS Last administered on 08/13/16 23:44; Start 08/13/16 at 21:15 Thrombin 20,000 unit STK-MED ONCE TP Last administered on 08/14/16 12:12; Start 08/14/16 at 06:43; Stop 08/14/16 at 06:44; Status DC Gelatin (Gelfoam Size 100) 1 each STK-MED ONCE .ROUTE Last administered on 12:12; Start 08/14/16 at 06:43; Stop 08/14/16 at 06:44; Status DC Ketorolac Tromethamine (Toradol For Or Only) 60 mg STK-MED ONCE .ROUTE Last administered on 08/14/16 12:12; Start 08/14/16 at 06:43; Stop 08/14/16 at 06:44 ; Status DC Bupivacaine HCl/ Epinephrine Bitart (Sensorcain-Mpf Epi 0.5%-1:[id number]) 30 ml STK -MED ONCE .ROUTE Last administered on 08/14/16 12:12; Start 08/14/16 at 06:44 ; Stop 08/14/16 at 06:45; Status DC Amlodipine Besylate (Norvasc) 10 mg DAILY PO ; Start 08/14/16 at 09:00; Status Cancel Pantoprazole Sodium 40 mg 40 mg DAILYAC PO Last administered on 08/15/16 06:12 ; Start 08/14/16 at 08:30; Stop 08/16/16 at 05:26; Status DC Vancomycin HCl 250 ml @ As Directed STK-MED ONCE .ROUTE ; Start 08/14/16 at 09: 03; Stop 08/14/16 at 09:04; Status DC Vancomycin HCl 250 ml @ 250 mls/hr 1X PREOP PRN IV Pre Op Last administered on 08/14/16t 11:51; Start 08/15/16 at 06:00; Stop 08/15/16 at 18:00; Status DC Dexamethasone Sodium Phosphate (Decadron) 20 mg STK-MED ONCE .ROUTE ; Start at 09:35; Stop 08/14/16 at 09:36; Status DC Ondansetron HCl 4 mg 4 mg STK-MED ONCE .ROUTE ; Start 08/14/16 at 09:35; Stop at 09:36; Status DC Propofol (Diprivan) 20 ml @ As Directed STK-MED ONCE IV ; Start 08/14/16 at 09: 35; Stop 08/14/16 at 09:36; Status DC Lidocaine HCl 100 mg 100 mg STK-MED ONCE .ROUTE ; Start 08/14/16 at 09:35; Stop 08/14/16 at 09:36; Status DC Propofol (Diprivan) 50 ml @ As Directed STK-MED ONCE IV ; Start 08/14/16 at 09: 35; Stop 08/14/16 at 09:36; Status DC Multi-Ingred Cream/Lotion/Oil/ Oint (Artificial Tears Eye Oint) 7 hansel STK-MED ONCE .ROUTE ; Start 08/14/16 at 09:35; Stop 08/14/16 at 09:36; Status DC Sodium Chloride (Sodium Chloride) 50 ml STK-MED ONCE IJ ; Start 08/14/16 at 09: 35; Stop 08/14/16 at 09:36; Status DC Desflurane (Suprane) 90 ml STK-MED ONCE IH ; Start 08/14/16 at 09:35; Stop 08/14 at 09:36; Status DC Fentanyl Citrate (Fentanyl 2ml Vial) 100 mcg STK-MED ONCE .ROUTE ; Start at 09:35; Stop 08/14/16 at 09:36; Status DC Remifentanil HCl (Ultiva) 2 mg STK-MED ONCE IV ; Start 08/14/16 at 09:36; Stop 08/14/16 at 09:37; Status DC Rocuronium Kersey (Zemuron) 50 mg STK-MED ONCE .ROUTE ; Start 08/14/16 at 09:36 ; Stop 08/14/16 at 09:37; Status DC Phenylephrine HCl (John-Synephrine Inj) 10 mg STK-MED ONCE .ROUTE ; Start at 11:53; Stop 08/14/16 at 11:54; Status DC Ephedrine Sulfate 50 mg STK-MED ONCE IV ; Start 08/14/16 at 12:13; Stop at 12:14; Status DC Fentanyl Citrate (Fentanyl 2ml Vial) 50 mcg PRN Q3HRS PRN IV MODERATE PAIN Last administered on 08/16/16 08:20; Start 08/15/16 at 05:23 Fentanyl Citrate (Fentanyl 2ml Vial) 75 mcg PRN Q3HRS PRN IV SEVERE PAIN Last administered on 08/16/16 03:53; Start 08/15/16 at 05:23 Amlodipine Besylate (Norvasc) 10 mg STK-MED ONCE .ROUTE ; Start 08/15/16 at 08: 57; Stop 08/15/16 at 08:58; Status DC Potassium Chloride (Klor-Con) 20 meq 1X ONCE PO ; Start 08/15/16 at 10:45; Stop 08/15/16 at 10:46; Status Cancel Acetaminophen/ Hydrocodone Bitart (Lortab 10/325) 1 tab PRN Q4HRS PRN PO PAIN Last administered on 08/16/16 08:19; Start 08/15/16 at 13:39 Potassium Chloride 20 meq 20 meq 1X ONCE PO Last administered on 08/15/16 18: 22; Start 08/15/16 at 15:30; Stop 08/15/16 at 15:31; Status DC Vancomycin HCl 250 ml @ 250 mls/hr 1X ONCE IV ; Start 08/16/16 at 03:30; Stop 08/16/16 at 04:29; Status UNV Vancomycin HCl 1 each 1 each PRN DAILY PRN MC SEE COMMENTS Last administered on 08/16/16 03:54; Start 08/16/16 at 03:45 Vancomycin HCl/ Sodium Chloride (Iv Sodium Chloride 0.9% 250ml) 250 ml @ 250 mls/hr Q24H IV ; Start 08/16/16 at 12:00 Vancomycin HCl 1 each 1X ONCE MC ; Start 08/17/16 at 11:30; Stop 08/17/16 at 11: 31 Vancomycin HCl (Vanco Per Pharmacy) 1 each 1X ONCE MC ; Start 08/16/16 at 03:45 ; Stop 08/16/16 at 03:46; Status UNV Pantoprazole Sodium (Protonix) 40 mg DAILYAC PO Last administered on 08/16/16t 08:20; Start 08/16/16 at 05:26 Amlodipine Besylate (Norvasc) 10 mg STK-MED ONCE .ROUTE ; Start 08/16/16 at 08: 11; Stop 08/16/16 at 08:12; Status DC Active Scripts Active Gabapentin 300 Mg Capsule 300 Mg PO TID Tylenol (Acetaminophen) 325 Mg Tablet 650 Mg PO PRN Q6HRS PRN Reported Amlodipine Besylate 10 Mg Tablet 1 Tab PO DAILY Vitals/I & O Vital Sign - Last 24 Hours 08/15/16 08/15/16 08/15/16 08/15/16 11:00 13:38 15:00 16:37 Temp 97.9 98.4 97.9 98.4 Pulse 117 74 Resp 18 B/P 155/93 124/72 Pulse Ox 95 96 O2 Delivery Room Air Room Air Room Air Room Air 08/15/16 08/15/16 08/15/16 08/15/16 17:07 19:38 20:01 23:16 Temp 99.9 98.6 99.9 98.6 Pulse 92 107 Resp 18 18 B/P 126/81 118/81 Pulse Ox 96 96 92 O2 Delivery Room Air Room Air Room Air O2 Flow Rate 2.0 08/16/16 08/16/16 08/16/16 08/16/16 00:20 03:16 03:53 04:23 Temp 101.5 101.5 Pulse 89 Resp 16 16 16 B/P 146/83 Pulse Ox 92 96 96 96 O2 Delivery Room Air 08/16/16 08/16/16 08/16/16 08/16/16 07:00 08:19 08:19 08:20 Temp 98.4 98.4 Pulse 88 88 Resp 20 B/P 152/89 152/89 Pulse Ox 99 O2 Delivery Room Air Room Air Room Air Intake and Output 08/15/16 08/15/16 08/16/16 15:00 23:00 07:00 Intake Total 750 ml 240 ml Balance 750 ml 240 ml RAUL DEVI MD Aug 16, 2016 10:37
[2016-08-16] MEDS ORDERED: BISACODYL 10 MG SUPP.RECT. PR PRN (10:45)
[2016-08-16] MEDS ORDERED: MAGNESIUM CITRATE 296 ML SOLUTION. PO PRN (10:45)
[2016-08-16 11:00] VITALS: BP 138/87
[2016-08-16] MEDS ORDERED: BISA5TAB4 PO (12:27)
[2016-08-16] MEDS ORDERED: HYDR-2672 PO (12:27)
[2016-08-16] MEDS ORDERED: SENN-22 PO (12:27)
[2016-08-16] MEDS ORDERED: LIDO700A4 TD (12:27)
[2016-08-16] MEDS ORDERED: Bisacodyl PR (12:27)
[2016-08-16] MEDS ORDERED: LORAZEPAM 0.5 MG TABLET. PO PRN (12:45)
--- NOTE | 2016-08-16 14:01 | PATHOLOGY ---
PATHOLOGY REPORT * * * * * * * * FINAL DIAGNOSIS: "Lumbar decompression", removal: - Fragments of fibrocartilage with degenerative changes. - Fragments of unremarkable skeletal muscle and bone. (SKM:matthew; d/t: 08/16/2016) REPORT ELECTRONICALLY SIGNED BY: Colette Pritchett M.D. DATE/TIME: 08/16/2016 14:00 * * * * * * * * GROSS PATHOLOGY: Received in formalin labeled "Haseeb Cummins and lumbar decompression," are multiple pieces of red-araujo to white-araujo, rubbery, gritty, and glistening fibrous tissue admixed with bone measuring 5.8 x 4.0 x 1.3 cm in aggregate dimensions. The tissue is submitted representatively in cassette A1, following decalcification. (TTL; 08/15/2016) INITIAL CPT CODE(S): A; 42801, 71296 Professional services performed [place] [facility] [place] [address] Technical services performed by [facility] at [address] [place] [address]. SPECIMEN(S) RECEIVED: A.Lumbar decompression CLINICAL HISTORY: Right foot drop, lumbar stenosis, radiculopathy PATIENT: HASEEB CUMMINS /AGE: 11 1950 (Age: 66) PATIENT #: [id number] ALT CASE #: SPECIMEN COLLECTION DATE: 08/14/2016 SPECIMEN RECEIVED DATE: 08/14/2016 [facility] - [address] [place] [address] - PHONE: [phone] * * * END OF REPORT * * *
[2016-08-16] MEDS: VANCOMYCIN 750 MG in IV NORMAL SALINE 250ML 250 ML IV SCH (14:11)
[2016-08-16] MEDS: MEROPENEM 500 MG in IV NORMAL SALINE 50ML 50 ML IV SCH ×2 (14:11→21:50)
--- NOTE | 2016-08-16 14:24 | PDOC ---
PROGRESS NOTES Subjective Subjective Resting in bed. c/o back and lower extremity pain Objective Objective Vital Signs Date Time Temp Pulse Resp B/P Pulse Ox O2 Delivery O2 Flow Rate FiO2 08/16/16 11:10 Nasal Cannula 08/16/16 11:00 99.0 104 18 138/87 97 99.0 08/15/16 20:01 2.0 Intake and Output 08/16/16 07:00 Intake Total 990 ml Balance 990 ml Intake Oral 990 ml # Voids 3 Physical Exam General: Alert, Oriented X3, Cooperative, No acute distress MUSCULOSKELETAL: Other (PETERSON) Neuro: Normal speech, Other (continued right dorsflexion weakness ) Skin: Other (dressing dry and intact, flat) Assessment Assessment Problems Medical Problems: (1) Acute exacerbation of chronic low back pain Status: Acute Plan Plan of Care Encouraged increased activity as tolerated d/c per Dr. Tinoco's recommendations. Will likely transfer to SNF. Comment Review of Relevant I have reviewed the following items dakota (where applicable) has been applied. Labs Laboratory Tests Test 08/15/16 05:57 08/16/16 04:00 White Blood Count 12.9x10^3/uL (4.0-11.0) 11.9x10^3/uL (4.0-11.0) Red Blood Count 3.15x10^6/uL (3.50-5.40) 3.13x10^6/uL (3.50-5.40) Hemoglobin 10.8g/dL (12.0-15.5) 10.7g/dL (12.0-15.5) Hematocrit 31.7% (36.0-47.0) 32.3% (36.0-47.0) Mean Corpuscular Volume 101fL (79-100) 103fL (79-100) Mean Corpuscular Hemoglobin 34pg (25-35) 34pg (25-35) Mean Corpuscular Hemoglobin Concent 34g/dL (31-37) 33g/dL (31-37) Red Cell Distribution Width 15.6% (11.5-14.5) 15.4% (11.5-14.5) Platelet Count 154x10^3/uL (140-400) 138x10^3/uL (140-400) Neutrophils (%) (Auto) 68% (31-73) 71% (31-73) Lymphocytes (%) (Auto) 24% (24-48) 19% (24-48) Monocytes (%) (Auto) 7% (0-9) 9% (0-9) Eosinophils (%) (Auto) 0% (0-3) 0% (0-3) Basophils (%) (Auto) 0% (0-3) 0% (0-3) Neutrophils # (Auto) 8.8x10^3uL (1.8-7.7) 8.5x10^3uL (1.8-7.7) Lymphocytes # (Auto) 3.1x10^3/uL (1.0-4.8) 2.3x10^3/uL (1.0-4.8) Monocytes # (Auto) 1.0x10^3/uL (0.0-1.1) 1.0x10^3/uL (0.0-1.1) Eosinophils # (Auto) 0.0x10^3/uL (0.0-0.7) 0.0x10^3/uL (0.0-0.7) Basophils # (Auto) 0.0x10^3/uL (0.0-0.2) 0.0x10^3/uL (0.0-0.2) Sodium Level 146mmol/L (136-145) 144mmol/L (136-145) Potassium Level 3.5mmol/L (3.5-5.1) 3.6mmol/L (3.5-5.1) Chloride Level 110mmol/L (98-107) 110mmol/L (98-107) Carbon Dioxide Level 26mmol/L (21-32) 25mmol/L (21-32) Anion Gap 10 (6-14) 9 (6-14) Blood Urea Nitrogen 16mg/dL (7-20) 12mg/dL (7-20) Creatinine 0.7mg/dL (0.6-1.0) 0.7mg/dL (0.6-1.0) Estimated GFR (Cockcroft-Gault) 100.7 100.7 BUN/Creatinine Ratio 23 (6-20) 17 (6-20) Glucose Level 80mg/dL (70-99) 98mg/dL (70-99) Calcium Level 9.5mg/dL (8.5-10.1) 9.4mg/dL (8.5-10.1) Magnesium Level 1.9mg/dL (1.8-2.4) Total Bilirubin 0.6mg/dL (0.2-1.0) 1.2mg/dL (0.2-1.0) Aspartate Amino Transf (AST/SGOT) 22U/L (15-37) 39U/L (15-37) Alanine Aminotransferase (ALT/SGPT) 16U/L (14-59) 31U/L (14-59) Alkaline Phosphatase 79U/L (46-116) 85U/L (46-116) Total Protein 6.1g/dL (6.4-8.2) 6.4g/dL (6.4-8.2) Albumin 3.0g/dL (3.4-5.0) 3.0g/dL (3.4-5.0) Albumin/Globulin Ratio 1.0 (1.0-1.7) 0.9 (1.0-1.7) Laboratory Tests Test 08/16/16 04:00 White Blood Count 11.9x10^3/uL (4.0-11.0) Red Blood Count 3.13x10^6/uL (3.50-5.40) Hemoglobin 10.7g/dL (12.0-15.5) Hematocrit 32.3% (36.0-47.0) Mean Corpuscular Volume 103fL (79-100) Mean Corpuscular Hemoglobin 34pg (25-35) Mean Corpuscular Hemoglobin Concent 33g/dL (31-37) Red Cell Distribution Width 15.4% (11.5-14.5) Platelet Count 138x10^3/uL (140-400) Neutrophils (%) (Auto) 71% (31-73) Lymphocytes (%) (Auto) 19% (24-48) Monocytes (%) (Auto) 9% (0-9) Eosinophils (%) (Auto) 0% (0-3) Basophils (%) (Auto) 0% (0-3) Neutrophils # (Auto) 8.5x10^3uL (1.8-7.7) Lymphocytes # (Auto) 2.3x10^3/uL (1.0-4.8) Monocytes # (Auto) 1.0x10^3/uL (0.0-1.1) Eosinophils # (Auto) 0.0x10^3/uL (0.0-0.7) Basophils # (Auto) 0.0x10^3/uL (0.0-0.2) Sodium Level 144mmol/L (136-145) Potassium Level 3.6mmol/L (3.5-5.1) Chloride Level 110mmol/L (98-107) Carbon Dioxide Level 25mmol/L (21-32) Anion Gap 9 (6-14) Blood Urea Nitrogen 12mg/dL (7-20) Creatinine 0.7mg/dL (0.6-1.0) Estimated GFR (Cockcroft-Gault) 100.7 BUN/Creatinine Ratio 17 (6-20) Glucose Level 98mg/dL (70-99) Calcium Level 9.4mg/dL (8.5-10.1) Total Bilirubin 1.2mg/dL (0.2-1.0) Aspartate Amino Transf (AST/SGOT) 39U/L (15-37) Alanine Aminotransferase (ALT/SGPT) 31U/L (14-59) Alkaline Phosphatase 85U/L (46-116) Total Protein 6.4g/dL (6.4-8.2) Albumin 3.0g/dL (3.4-5.0) Albumin/Globulin Ratio 0.9 (1.0-1.7) Medications Current Medications Gabapentin (Neurontin) 300 mg TID PO Last administered on 08/16/16 14:11; Start 08/13/16 at 15:00 Acetaminophen/ Hydrocodone Bitart (Lortab 10/325) 1 tab PRN Q6HRS PRN PO PAIN Last administered on 08/15/16 13:38; Start 08/13/16 at 14:30; Stop 08/15/16 at 13:41; Status DC Fentanyl Citrate (Fentanyl 2ml Vial) 50 mcg PRN Q3HRS PRN IV PAIN Last administered on 08/14/16 08:35; Start 08/13/16 at 14:30; Stop 08/15/16 at 05:23 ; Status DC Lidocaine (Lidoderm) 1 patch DAILY TD Last administered on 08/15/16 09:14; Start 08/14/16 at 09:00 Fentanyl Citrate (Fentanyl 2ml Vial) 75 mcg PRN Q3HRS PRN IV PAIN Last administered on 08/14/16 10:21; Start 08/13/16 at 14:45; Stop 08/15/16 at 05:23 ; Status DC Acetaminophen (Tylenol) 650 mg PRN Q6HRS PRN PO MILD PAIN Last administered on 08/16/16 03:17; Start 08/13/16 at 16:15 Ondansetron HCl (Zofran) 4 mg PRN Q6HRS PRN IV Nausea; Start 08/14/16 at 07:00 ; Stop 08/15/16 at 06:59; Status DC Fentanyl Citrate (Fentanyl 2ml Vial) 25 mcg PRN Q5MIN PRN IV MILD PAIN; Start 08/14/16 at 07:00; Stop 08/15/16 at 06:59; Status DC Fentanyl Citrate (Fentanyl 2ml Vial) 50 mcg PRN Q5MIN PRN IV MODERATE PAIN Last administered on 08/14/16 14:06; Start 08/14/16 at 07:00; Stop 08/15/16 at 06:59; Status DC Morphine Sulfate 1 mg 1 mg PRN Q10MIN PRN IV SEVERE PAIN Last administered on 14:27; Start 08/14/16 at 07:00; Stop 08/15/16 at 06:59; Status DC Lactated Ringer's (Iv Lactated Ringers) 1,000 ml @ 0 mls/hr Q0M IV ; Start at 07:00; Stop 08/14/16 at 18:59; Status DC Lidocaine HCl 2 ml 1X PRN PRN ID IV START; Start 08/14/16 at 07:00; Stop at 06:59; Status DC Hydromorphone HCl (Dilaudid) 0.5 mg PRN Q10MIN PRN IV SEVERE PAIN, Second choice; Start 08/14/16 at 07:00; Stop 08/15/16 at 06:59; Status DC Prochlorperazine Edisylate 5 mg 5 mg PACU PRN PRN IV NAUSEA; Start 08/14/16 at 07:00; Stop 08/15/16 at 06:59; Status DC Bacitracin/Sodium Chloride (Bacitracin/Iv Sodium Chloride 0.9% 1000ml Bag) 1, 000 ml @ 1,000 mls/hr 1X PERIOP ONCE IRR Last administered on 08/14/16 12:12 ; Start 08/14/16 at 06:00; Stop 08/14/16 at 06:59; Status DC Amlodipine Besylate (Norvasc) 10 mg DAILY PO Last administered on 08/16/16 08: 19; Start 08/13/16 at 20:00 Clonidine HCl (Catapres) 0.1 mg PRN Q6HRS PRN PO HYPERTENSION, SEE COMMENTS Last administered on 08/13/16 23:44; Start 08/13/16 at 21:15 Thrombin 20,000 unit STK-MED ONCE TP Last administered on 08/14/16 12:12; Start 08/14/16 at 06:43; Stop 08/14/16 at 06:44; Status DC Gelatin (Gelfoam Size 100) 1 each STK-MED ONCE .ROUTE Last administered on 12:12; Start 08/14/16 at 06:43; Stop 08/14/16 at 06:44; Status DC Ketorolac Tromethamine (Toradol For Or Only) 60 mg STK-MED ONCE .ROUTE Last administered on 08/14/16 12:12; Start 08/14/16 at 06:43; Stop 08/14/16 at 06:44 ; Status DC Bupivacaine HCl/ Epinephrine Bitart (Sensorcain-Mpf Epi 0.5%-1:[id number]) 30 ml STK -MED ONCE .ROUTE Last administered on 08/14/16 12:12; Start 08/14/16 at 06:44 ; Stop 08/14/16 at 06:45; Status DC Amlodipine Besylate (Norvasc) 10 mg DAILY PO ; Start 08/14/16 at 09:00; Status Cancel Pantoprazole Sodium 40 mg 40 mg DAILYAC PO Last administered on 08/15/16 06:12 ; Start 08/14/16 at 08:30; Stop 08/16/16 at 05:26; Status DC Vancomycin HCl 250 ml @ As Directed STK-MED ONCE .ROUTE ; Start 08/14/16 at 09: 03; Stop 08/14/16 at 09:04; Status DC Vancomycin HCl 250 ml @ 250 mls/hr 1X PREOP PRN IV Pre Op Last administered on 08/14/16t 11:51; Start 08/15/16 at 06:00; Stop 08/15/16 at 18:00; Status DC Dexamethasone Sodium Phosphate (Decadron) 20 mg STK-MED ONCE .ROUTE ; Start at 09:35; Stop 08/14/16 at 09:36; Status DC Ondansetron HCl 4 mg 4 mg STK-MED ONCE .ROUTE ; Start 08/14/16 at 09:35; Stop at 09:36; Status DC Propofol (Diprivan) 20 ml @ As Directed STK-MED ONCE IV ; Start 08/14/16 at 09: 35; Stop 08/14/16 at 09:36; Status DC Lidocaine HCl 100 mg 100 mg STK-MED ONCE .ROUTE ; Start 08/14/16 at 09:35; Stop 08/14/16 at 09:36; Status DC Propofol (Diprivan) 50 ml @ As Directed STK-MED ONCE IV ; Start 08/14/16 at 09: 35; Stop 08/14/16 at 09:36; Status DC Multi-Ingred Cream/Lotion/Oil/ Oint (Artificial Tears Eye Oint) 7 hansel STK-MED ONCE .ROUTE ; Start 08/14/16 at 09:35; Stop 08/14/16 at 09:36; Status DC Sodium Chloride (Sodium Chloride) 50 ml STK-MED ONCE IJ ; Start 08/14/16 at 09: 35; Stop 08/14/16 at 09:36; Status DC Desflurane (Suprane) 90 ml STK-MED ONCE IH ; Start 08/14/16 at 09:35; Stop 08/14 at 09:36; Status DC Fentanyl Citrate (Fentanyl 2ml Vial) 100 mcg STK-MED ONCE .ROUTE ; Start at 09:35; Stop 08/14/16 at 09:36; Status DC Remifentanil HCl (Ultiva) 2 mg STK-MED ONCE IV ; Start 08/14/16 at 09:36; Stop 08/14/16 at 09:37; Status DC Rocuronium [place] (Zemuron) 50 mg STK-MED ONCE .ROUTE ; Start 08/14/16 at 09:36 ; Stop 08/14/16 at 09:37; Status DC Phenylephrine HCl (John-Synephrine Inj) 10 mg STK-MED ONCE .ROUTE ; Start at 11:53; Stop 08/14/16 at 11:54; Status DC Ephedrine Sulfate 50 mg STK-MED ONCE IV ; Start 08/14/16 at 12:13; Stop at 12:14; Status DC Fentanyl Citrate (Fentanyl 2ml Vial) 50 mcg PRN Q3HRS PRN IV MODERATE PAIN Last administered on 08/16/16 08:20; Start 08/15/16 at 05:23 Fentanyl Citrate (Fentanyl 2ml Vial) 75 mcg PRN Q3HRS PRN IV SEVERE PAIN Last administered on 08/16/16 11:10; Start 08/15/16 at 05:23 Amlodipine Besylate (Norvasc) 10 mg STK-MED ONCE .ROUTE ; Start 08/15/16 at 08: 57; Stop 08/15/16 at 08:58; Status DC Potassium Chloride (Klor-Con) 20 meq 1X ONCE PO ; Start 08/15/16 at 10:45; Stop 08/15/16 at 10:46; Status Cancel Acetaminophen/ Hydrocodone Bitart (Lortab 10/325) 1 tab PRN Q4HRS PRN PO PAIN Last administered on 08/16/16 08:19; Start 08/15/16 at 13:39 Potassium Chloride 20 meq 20 meq 1X ONCE PO Last administered on 08/15/16 18: 22; Start 08/15/16 at 15:30; Stop 08/15/16 at 15:31; Status DC Vancomycin HCl 250 ml @ 250 mls/hr 1X ONCE IV ; Start 08/16/16 at 03:30; Stop 08/16/16 at 04:29; Status UNV Vancomycin HCl 1 each 1 each PRN DAILY PRN MC SEE COMMENTS Last administered on 08/16/16 03:54; Start 08/16/16 at 03:45 Vancomycin HCl/ Sodium Chloride (Iv Sodium Chloride 0.9% 250ml) 250 ml @ 250 mls/hr Q24H IV Last administered on 08/16/16 14:11; Start 08/16/16 at 12:00 Vancomycin HCl 1 each 1X ONCE MC ; Start 08/17/16 at 11:30; Stop 08/17/16 at 11: 31 Vancomycin HCl (Vanco Per Pharmacy) 1 each 1X ONCE MC ; Start 08/16/16 at 03:45 ; Stop 08/16/16 at 03:46; Status UNV Pantoprazole Sodium (Protonix) 40 mg DAILYAC PO Last administered on 08/16/16 08:20; Start 08/16/16 at 05:26 Amlodipine Besylate 10 mg 10 mg STK-MED ONCE .ROUTE ; Start 08/16/16 at 08:11; Stop 08/16/16 at 08:12; Status DC Meropenem/Sodium Chloride (Merrem/Iv Sodium Chloride 0.9% 50ml) 50 ml @ 100 mls /hr Q8HRS IV Last administered on 08/16/16 14:11; Start 08/16/16 at 11:00 Bisacodyl (Dulcolax Tab) 10 mg DAILY PO ; Start 08/17/16 at 09:00 Bisacodyl (Dulcolax Supp) 10 mg PRN DAILY PRN DC CONSTIPATION; Start 08/16/16 at 10:45 Senna/Docusate Sodium (Senna Plus) 1 tab BID PO ; Start 08/16/16 at 21:00 Magnesium Citrate (Citroma) 296 ml PRN 1X PRN PO CONSTIPATION; Start 08/16/16 at 10:45 Lorazepam (Ativan) 0.5 mg PRN Q6HRS PRN PO ANXIETY / AGITATION; Start 08/16/16 at 12:45 Active Scripts Active Senna-Time S Tablet (Sennosides/Docusate Sodium) 1 Each Tablet 1 Tab PO BID [Bisacodyl] 10 MG Supp.rect 10 Mg DC PRN DAILY PRN Bisacodyl 5 Mg Tablet.dr 10 Mg PO DAILY Lidoderm (Lidocaine) 700 Mg Adh..patch 1 Patch TD DAILY Hydrocodone-Apap 10-325 (Hydrocodone Bit/Acetaminophen) 1 Each Tablet 1 Tab PO PRN Q4HRS PRN Gabapentin 300 Mg Capsule 300 Mg PO TID Tylenol (Acetaminophen) 325 Mg Tablet 650 Mg PO PRN Q6HRS PRN Reported Amlodipine Besylate 10 Mg Tablet 1 Tab PO DAILY Vitals/I & O Vital Sign - Last 24 Hours 08/15/16 08/15/16 08/15/16 08/15/16 15:00 16:37 17:07 19:38 Temp 98.4 99.9 98.4 99.9 Pulse 74 92 Resp 18 18 B/P 124/72 126/81 Pulse Ox 96 96 O2 Delivery Room Air Room Air Room Air Room Air 08/15/16 08/15/16 08/16/16 08/16/16 20:01 23:16 00:20 03:16 Temp 98.6 101.5 98.6 101.5 Pulse 107 89 Resp 16 18 16 18 B/P 118/81 146/83 Pulse Ox 96 92 92 96 O2 Delivery Room Air Room Air O2 Flow Rate 2.0 08/16/16 08/16/16 08/16/16 08/16/16 03:53 04:23 07:00 08:19 Temp 98.4 98.4 Pulse 88 88 Resp 16 16 20 B/P 152/89 152/89 Pulse Ox 96 96 99 O2 Delivery Room Air 08/16/16 08/16/16 08/16/16 08/16/16 08:19 08:20 11:00 11:10 Temp 99.0 99.0 Pulse 104 Resp 18 B/P 138/87 Pulse Ox 97 O2 Delivery Room Air Room Air Room Air Nasal Cannula Intake and Output 08/15/16 08/15/16 08/16/16 15:00 23:00 07:00 Intake Total 750 ml 240 ml Balance 750 ml 240 ml GUY GAMING APRN Aug 16, 2016 14:24
[2016-08-16 15:00] VITALS: BP 127/80
--- NOTE | 2016-08-16 15:28 | RAD ---
CT of the chest without contrast, 08/16/2016: History: Fever Noncontrast scans were obtained as requested. There is moderate calcific plaquing of the thoracic aorta. There is no evidence of aortic aneurysm. There are calcified mediastinal and right hilar lymph nodes compatible with old granulomatous disease. No mediastinal adenopathy is evident. There are granulomatous calcifications in the right lower and middle lobes. There are mild scattered linear opacities in the lungs, particularly in the lung bases posteriorly, compatible with scarring and/or atelectasis. There are mild reticular opacities in the anteromedial aspects of both upper lobes compatible with scarring and minimal underlying honeycombing. There is a 4 mm subsolid opacity in the right upper lobe posteromedially as seen on image 15 of series #2. No pulmonary mass or dense consolidation is seen. There is no evidence of pleural fluid. IMPRESSION: 1. Old healed granulomatous disease in the chest. 2. Mild bilateral linear scarring and/or atelectasis. 3. Tiny nonspecific right upper lobe subsolid nodule. Depending on the patient's risk factors, CT follow-up may be useful to establish stability. PQRS Compliance Statement: One or more of the following individualized dose reduction techniques were utilized for this examination: 1. Automated exposure control 2. Adjustment of the mA and/or kV according to patient size 3. Use of iterative reconstruction technique
[2016-08-16 19:08] VITALS: BP 119/73
[2016-08-16] MEDS: SENNOSIDES/DOCUSATE 8.6/50MG TABLET. PO SCH (21:50)
[2016-08-16 23:06] VITALS: BP 131/79
[2016-08-17] MEDS: HYDROCODONE/APAP 10/325 TABLET. PO PRN (02:31)
[2016-08-17 03:03] VITALS: BP 122/87
[2016-08-17 04:51] LABS: BASO % 0 % (0-3); EOS % 1 % (0-3); HEMOGLOBIN 10.8 g/dL (12.0-15.5); LYMPH # 2.4 x10^3/uL (1.0-4.8); LYMPH % 23 % (24-48); MEAN CORPUSCULAR HEMOGLOBIN 35 pg (25-35); MEAN CORPUSCULAR HGB CONC 34 g/dL (31-37); MEAN CORPUSCULAR VOLUME 103 fL (79-100); MONO % 10 % (0-9); NEUT % 67 % (31-73); PLATELET COUNT 141 x10^3/uL (140-400); RED CELL DISTRIBUTION WIDTH 15.5 % (11.5-14.5); WHITE BLOOD COUNT 10.6 x10^3/uL (4.0-11.0)
[2016-08-17 05:07] LABS: ALBUMIN 2.5 g/dL (3.4-5.0); ALBUMIN/GLOBULIN RATIO 0.7 (1.0-1.7); CALCIUM 9.3 mg/dL (8.5-10.1); CREATININE 0.7 mg/dL (0.6-1.0); GFR 100.7; POTASSIUM 3.8 mmol/L (3.5-5.1); TOTAL BILIRUBIN 0.8 mg/dL (0.2-1.0); TOTAL PROTEIN 6.2 g/dL (6.4-8.2)
--- NOTE | 2016-08-17 05:32 | CONS ---
DATE OF CONSULTATION: 08/16/2016 REQUESTING PHYSICIAN: Dr. Merritt. REASON FOR CONSULTATION: Fever. HISTORY OF PRESENT ILLNESS: This is a 66-year-old -[place] female, who came in with significant back pain with foot drop. The patient has spinal stenosis. The patient was evaluated and underwent surgery by Dr. Mich Vanegas with bilateral hemilaminotomies and microdecompression of the dura and nerve root on August 14. The patient started running fever, low grade next day on August 15, but then last night, she had 101.5, and the patient feels as she has chills. She is having tingling and numbness in the legs, just not feeling well and weakness in the legs. The patient denies any nausea or vomiting. Denies any diarrhea. Has not had bowel movement since she came in. The patient was started on vancomycin. PAST MEDICAL HISTORY: Positive for hypertension, renal insufficiency, COPD, and gastroesophageal reflux disease. SOCIAL HISTORY: Negative for smoking or alcohol use. The patient does do marijuana and remote history of cocaine use. REVIEW OF SYSTEMS: As per HPI. ALLERGIES: LISTED ALLERGIC TO PENICILLIN, WHICH CAUSES HIVES. CURRENT MEDICATIONS: Reviewed. The patient is on vancomycin. PHYSICAL EXAMINATION: GENERAL: Awake female, not in any distress. VITAL SIGNS: Temperature of 98.4 with a T-max 101.5, pulse 88, respirations 20, blood pressure 152/89. HEENT: Both pupils are round and reacting. No conjunctival lesion, no lesion in the mouth. NECK: Supple, no JVP, no lymphadenopathy. LUNGS: Clear. HEART: S1, S2 regular. ABDOMEN: Benign. EXTREMITIES: No edema or cyanosis. SKIN: Unremarkable except the incision. The incision is very well approximated. There is very slight bloody drainage present, but she does have swelling in the surrounding area with extreme tenderness. The patient does move all the extremities. LABORATORY DATA: White count is 11.9. BUN and creatinine is normal. Chest x-ray done on admission had shown soft tissue density in the upper mediastinum. IMPRESSION: 1. Fever, postop atelectasis possible, although possible that the patient has hematoma at the surgery site. 2. Pain with tingling and numbness and weakness in the legs, again hematoma pressing over to the nerve root is a possibility. 3. Status post spine surgery for spinal stenosis and foot drop. 4. Chronic obstructive pulmonary disease. 5. Renal insufficiency. PLAN: Recommend continue vancomycin, add meropenem. She may need CT of the spine if she continues to have problem with that. Supportive care. We will check the cultures and continue to follow up at the time of transport. Thank you very much, Dr. Merritt, for giving me the opportunity to participate in this patient's care. JOY STEWART MD DR: ISELA/nts JOB#: [id number] / [id number]
[2016-08-17] MEDS: MEROPENEM 500 MG in IV NORMAL SALINE 50ML 50 ML IV SCH ×3 (06:23→21:37)
[2016-08-17] MEDS: FENTANYL PF 100 MCG/2 ML VIAL. IV PRN ×2 (06:33→10:33)
[2016-08-17 07:00] VITALS: BP 138/85
[2016-08-17] MEDS: PANTOPRAZOLE 40 MG TABLET.DR. PO SCH (07:52)
[2016-08-17] MEDS ORDERED: AMLODIPINE BESYLATE 10 MG TABLET. ONE (08:39)
[2016-08-17] MEDS ORDERED: GABAPENTIN 300 MG CAPSULE. PO ONE (08:39)
[2016-08-17] MEDS: BISACODYL 5 MG TABLET.DR. PO SCH (10:05)
[2016-08-17] MEDS: GABAPENTIN 300 MG CAPSULE. PO SCH ×3 (10:05→21:04)
[2016-08-17] MEDS: AMLODIPINE BESYLATE 10 MG TABLET PO SCH (10:06)
[2016-08-17] MEDS: SENNOSIDES/DOCUSATE 8.6/50MG TABLET. PO SCH ×2 (10:06→21:05)
[2016-08-17] MEDS: LIDOCAINE (700MG/PATCH) PATCH. TD SCH (10:07)
[2016-08-17 11:00] VITALS: BP 135/86
--- NOTE | 2016-08-17 11:01 | PDOC ---
IM PROGRESS NOTES- Subjective Subjective Feeling better.Had high grade fever yesterday. Objective Objective mild distress Vitals Vital Signs Date Time Temp Pulse Resp B/P Pulse Ox O2 Delivery O2 Flow Rate FiO2 08/17/16 10:33 Room Air 08/17/16 10:06 74 138/85 08/17/16 07:00 97.7 18 99 97.7 Input & Output Intake and Output 08/17/16 07:00 Intake Total 960 ml Balance 960 ml Intake Oral 960 ml Physical Exam Physical Exam General appearance - alert,ill appearing, and in mild distress r/t pain Head - normal Chest - clear to auscultation, no wheezes, rales or rhonchi, symmetric air entry Heart - S1 and S2 normal Abdomen - soft, nontender, nondistended, no masses or organomegaly Neurological - no acute focal neurological deficit noted, continued pain LS surgical with R leg pain continued Musculoskeletal - no muscular tenderness noted Extremities - no pedal edema Skin - warm and dry Labs Laboratory Tests Test 08/16/16 04:00 08/17/16 04:10 White Blood Count 11.9x10^3/uL (4.0-11.0) 10.6x10^3/uL (4.0-11.0) Red Blood Count 3.13x10^6/uL (3.50-5.40) 3.10x10^6/uL (3.50-5.40) Hemoglobin 10.7g/dL (12.0-15.5) 10.8g/dL (12.0-15.5) Hematocrit 32.3% (36.0-47.0) 32.0% (36.0-47.0) Mean Corpuscular Volume 103fL (79-100) 103fL (79-100) Mean Corpuscular Hemoglobin 34pg (25-35) 35pg (25-35) Mean Corpuscular Hemoglobin Concent 33g/dL (31-37) 34g/dL (31-37) Red Cell Distribution Width 15.4% (11.5-14.5) 15.5% (11.5-14.5) Platelet Count 138x10^3/uL (140-400) 141x10^3/uL (140-400) Neutrophils (%) (Auto) 71% (31-73) 67% (31-73) Lymphocytes (%) (Auto) 19% (24-48) 23% (24-48) Monocytes (%) (Auto) 9% (0-9) 10% (0-9) Eosinophils (%) (Auto) 0% (0-3) 1% (0-3) Basophils (%) (Auto) 0% (0-3) 0% (0-3) Neutrophils # (Auto) 8.5x10^3uL (1.8-7.7) 7.1x10^3uL (1.8-7.7) Lymphocytes # (Auto) 2.3x10^3/uL (1.0-4.8) 2.4x10^3/uL (1.0-4.8) Monocytes # (Auto) 1.0x10^3/uL (0.0-1.1) 1.0x10^3/uL (0.0-1.1) Eosinophils # (Auto) 0.0x10^3/uL (0.0-0.7) 0.1x10^3/uL (0.0-0.7) Basophils # (Auto) 0.0x10^3/uL (0.0-0.2) 0.0x10^3/uL (0.0-0.2) Sodium Level 144mmol/L (136-145) 143mmol/L (136-145) Potassium Level 3.6mmol/L (3.5-5.1) 3.8mmol/L (3.5-5.1) Chloride Level 110mmol/L (98-107) 108mmol/L (98-107) Carbon Dioxide Level 25mmol/L (21-32) 27mmol/L (21-32) Anion Gap 9 (6-14) 8 (6-14) Blood Urea Nitrogen 12mg/dL (7-20) 10mg/dL (7-20) Creatinine 0.7mg/dL (0.6-1.0) 0.7mg/dL (0.6-1.0) Estimated GFR (Cockcroft-Gault) 100.7 100.7 BUN/Creatinine Ratio 17 (6-20) 14 (6-20) Glucose Level 98mg/dL (70-99) 97mg/dL (70-99) Calcium Level 9.4mg/dL (8.5-10.1) 9.3mg/dL (8.5-10.1) Total Bilirubin 1.2mg/dL (0.2-1.0) 0.8mg/dL (0.2-1.0) Aspartate Amino Transf (AST/SGOT) 39U/L (15-37) 24U/L (15-37) Alanine Aminotransferase (ALT/SGPT) 31U/L (14-59) 27U/L (14-59) Alkaline Phosphatase 85U/L (46-116) 83U/L (46-116) Total Protein 6.4g/dL (6.4-8.2) 6.2g/dL (6.4-8.2) Albumin 3.0g/dL (3.4-5.0) 2.5g/dL (3.4-5.0) Albumin/Globulin Ratio 0.9 (1.0-1.7) 0.7 (1.0-1.7) Laboratory Tests Test 08/17/16 04:10 White Blood Count 10.6x10^3/uL (4.0-11.0) Red Blood Count 3.10x10^6/uL (3.50-5.40) Hemoglobin 10.8g/dL (12.0-15.5) Hematocrit 32.0% (36.0-47.0) Mean Corpuscular Volume 103fL (79-100) Mean Corpuscular Hemoglobin 35pg (25-35) Mean Corpuscular Hemoglobin Concent 34g/dL (31-37) Red Cell Distribution Width 15.5% (11.5-14.5) Platelet Count 141x10^3/uL (140-400) Neutrophils (%) (Auto) 67% (31-73) Lymphocytes (%) (Auto) 23% (24-48) Monocytes (%) (Auto) 10% (0-9) Eosinophils (%) (Auto) 1% (0-3) Basophils (%) (Auto) 0% (0-3) Neutrophils # (Auto) 7.1x10^3uL (1.8-7.7) Lymphocytes # (Auto) 2.4x10^3/uL (1.0-4.8) Monocytes # (Auto) 1.0x10^3/uL (0.0-1.1) Eosinophils # (Auto) 0.1x10^3/uL (0.0-0.7) Basophils # (Auto) 0.0x10^3/uL (0.0-0.2) Sodium Level 143mmol/L (136-145) Potassium Level 3.8mmol/L (3.5-5.1) Chloride Level 108mmol/L (98-107) Carbon Dioxide Level 27mmol/L (21-32) Anion Gap 8 (6-14) Blood Urea Nitrogen 10mg/dL (7-20) Creatinine 0.7mg/dL (0.6-1.0) Estimated GFR (Cockcroft-Gault) 100.7 BUN/Creatinine Ratio 14 (6-20) Glucose Level 97mg/dL (70-99) Calcium Level 9.3mg/dL (8.5-10.1) Total Bilirubin 0.8mg/dL (0.2-1.0) Aspartate Amino Transf (AST/SGOT) 24U/L (15-37) Alanine Aminotransferase (ALT/SGPT) 27U/L (14-59) Alkaline Phosphatase 83U/L (46-116) Total Protein 6.2g/dL (6.4-8.2) Albumin 2.5g/dL (3.4-5.0) Albumin/Globulin Ratio 0.7 (1.0-1.7) Meds Current Medications Amlodipine Besylate (Norvasc) 10 mg STK-MED ONCE .ROUTE ; Start 08/17/16 at 08:39 ; Stop 08/17/16 at 08:40; Status DC Bisacodyl (Dulcolax Tab) 10 mg DAILY PO Last administered on 08/17/16 10:05; Start 08/17/16 at 09:00 Gabapentin (Neurontin) 300 mg STK-MED ONCE PO ; Start 08/17/16 at 08:39; Stop 08/17/16 at 08:40; Status DC Lorazepam (Ativan) 0.5 mg PRN Q6HRS PRN PO ANXIETY / AGITATION Last administered on 08/16/16 21:56; Start 08/16/16 at 12:45 Meropenem/Sodium Chloride (Merrem/Iv Sodium Chloride 0.9% 50ml) 50 ml @ 100 mls /hr Q8HRS IV Last administered on 08/17/16 06:23; Start 08/16/16 at 11:00 Senna/Docusate Sodium (Senna Plus) 1 tab BID PO Last administered on 08/17/16 10:06; Start 08/16/16 at 21:00 Vancomycin HCl 1 each 1 each 1X ONCE MC ; Start 08/17/16 at 11:30; Stop 08/17/16 at 11:31 Vancomycin HCl/ Sodium Chloride (Iv Sodium Chloride 0.9% 250ml) 250 ml @ 250 mls/hr Q24H IV Last administered on 08/16/16 14:11; Start 08/16/16 at 12:00 Assessment Assessment 1. Severe spinal stenosis with DDD mainly involving L4-L5 and L5-S1 with radiculopathy R >L s/p Bilateral hemilaminectomies with microdecompression of dura and nerve root. 2. tendinits sprain R foot drop r/t #1 3. HTN 4. +cocaine per urine drug screen 5. 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 hypokalemia 7. COPD 8. + heart murmur 9. bilateral trochanteric bursitis PLAN: back pain with radiculopathy neurosurgeon consult surgery today 08/14 s/p surgery POD 2 Pain not controlled HTN continue home med Heart murmur check ECHO: diastolic EF normal mild MR. d/w Vikki-at mod risk with co morbidities: anesthesia to determine if proceed with surgery: anesthesia eval ECHO and surgery to be done. COPD nebulizer prn O2 prn maintain Sat >90% hypokalemia stat BMP pending-surgery at 1230-not done Admit K 3.1 08/06 3.6 Na 144 144 leukocytosis/anemia Admit WBC 7.0 08/15 11.9 Hgb 12.1 10.8 leukocytosis - steroid induced Vanco per neurosurgery + urine drug screen cocaine d/w Asya ?withdrawl symptoms r/t cocaine contributing to pain levels? DVT/GI prophylaxis SCD/TARIQ PPI mild azotemia secondary dehydration, not ARF or BRETT Admit Na 144 08/16 144 BUN 21 12 Cr 1.[address] Ferrera will discuss with pt. -he will not do pain management out patient +urine drug screen -cocaine Post op: Fentanyl 50-75mg IV q3h hydrocodone/acet 10/325 q 6hr prn Plan SNU at discharge. Fever- ? atelectasis,? hematoma- improving. continue antibiotics. Plan Plan For more details regarding further plans, please refer to the orders. MILLY FERRERA MD Aug 17, 2016 11:01
--- NOTE | 2016-08-17 11:19 | PDOC ---
PROGRESS NOTES Subjective Subjective up in chair ambulated in room feels better today still intermittent leg pain Objective Objective Vital Signs Date Time Temp Pulse Resp B/P Pulse Ox O2 Delivery O2 Flow Rate FiO2 08/17/16 11:00 98.6 103 18 135/86 93 Room Air 98.6 08/15/16 20:01 2.0 Intake and Output 08/17/16 07:00 Intake Total 960 ml Balance 960 ml Intake Oral 960 ml Physical Exam General: Alert, Oriented X3, Cooperative, No acute distress MUSCULOSKELETAL: Other (PETERSON) Neuro: Normal speech Psych/Mental Status: Mental status NL Skin: Other (dressing changed, incision dry, flat) Assessment Assessment Problems Medical Problems: (1) Acute exacerbation of chronic low back pain Status: Acute Plan Plan of Care labs noted continue PT encouraged increased activity as tolerated Comment Review of Relevant I have reviewed the following items dakota (where applicable) has been applied. Labs Laboratory Tests Test 08/16/16 04:00 08/17/16 04:10 White Blood Count 11.9x10^3/uL (4.0-11.0) 10.6x10^3/uL (4.0-11.0) Red Blood Count 3.13x10^6/uL (3.50-5.40) 3.10x10^6/uL (3.50-5.40) Hemoglobin 10.7g/dL (12.0-15.5) 10.8g/dL (12.0-15.5) Hematocrit 32.3% (36.0-47.0) 32.0% (36.0-47.0) Mean Corpuscular Volume 103fL (79-100) 103fL (79-100) Mean Corpuscular Hemoglobin 34pg (25-35) 35pg (25-35) Mean Corpuscular Hemoglobin Concent 33g/dL (31-37) 34g/dL (31-37) Red Cell Distribution Width 15.4% (11.5-14.5) 15.5% (11.5-14.5) Platelet Count 138x10^3/uL (140-400) 141x10^3/uL (140-400) Neutrophils (%) (Auto) 71% (31-73) 67% (31-73) Lymphocytes (%) (Auto) 19% (24-48) 23% (24-48) Monocytes (%) (Auto) 9% (0-9) 10% (0-9) Eosinophils (%) (Auto) 0% (0-3) 1% (0-3) Basophils (%) (Auto) 0% (0-3) 0% (0-3) Neutrophils # (Auto) 8.5x10^3uL (1.8-7.7) 7.1x10^3uL (1.8-7.7) Lymphocytes # (Auto) 2.3x10^3/uL (1.0-4.8) 2.4x10^3/uL (1.0-4.8) Monocytes # (Auto) 1.0x10^3/uL (0.0-1.1) 1.0x10^3/uL (0.0-1.1) Eosinophils # (Auto) 0.0x10^3/uL (0.0-0.7) 0.1x10^3/uL (0.0-0.7) Basophils # (Auto) 0.0x10^3/uL (0.0-0.2) 0.0x10^3/uL (0.0-0.2) Sodium Level 144mmol/L (136-145) 143mmol/L (136-145) Potassium Level 3.6mmol/L (3.5-5.1) 3.8mmol/L (3.5-5.1) Chloride Level 110mmol/L (98-107) 108mmol/L (98-107) Carbon Dioxide Level 25mmol/L (21-32) 27mmol/L (21-32) Anion Gap 9 (6-14) 8 (6-14) Blood Urea Nitrogen 12mg/dL (7-20) 10mg/dL (7-20) Creatinine 0.7mg/dL (0.6-1.0) 0.7mg/dL (0.6-1.0) Estimated GFR (Cockcroft-Gault) 100.7 100.7 BUN/Creatinine Ratio 17 (6-20) 14 (6-20) Glucose Level 98mg/dL (70-99) 97mg/dL (70-99) Calcium Level 9.4mg/dL (8.5-10.1) 9.3mg/dL (8.5-10.1) Total Bilirubin 1.2mg/dL (0.2-1.0) 0.8mg/dL (0.2-1.0) Aspartate Amino Transf (AST/SGOT) 39U/L (15-37) 24U/L (15-37) Alanine Aminotransferase (ALT/SGPT) 31U/L (14-59) 27U/L (14-59) Alkaline Phosphatase 85U/L (46-116) 83U/L (46-116) Total Protein 6.4g/dL (6.4-8.2) 6.2g/dL (6.4-8.2) Albumin 3.0g/dL (3.4-5.0) 2.5g/dL (3.4-5.0) Albumin/Globulin Ratio 0.9 (1.0-1.7) 0.7 (1.0-1.7) Laboratory Tests Test 08/17/16 04:10 White Blood Count 10.6x10^3/uL (4.0-11.0) Red Blood Count 3.10x10^6/uL (3.50-5.40) Hemoglobin 10.8g/dL (12.0-15.5) Hematocrit 32.0% (36.0-47.0) Mean Corpuscular Volume 103fL (79-100) Mean Corpuscular Hemoglobin 35pg (25-35) Mean Corpuscular Hemoglobin Concent 34g/dL (31-37) Red Cell Distribution Width 15.5% (11.5-14.5) Platelet Count 141x10^3/uL (140-400) Neutrophils (%) (Auto) 67% (31-73) Lymphocytes (%) (Auto) 23% (24-48) Monocytes (%) (Auto) 10% (0-9) Eosinophils (%) (Auto) 1% (0-3) Basophils (%) (Auto) 0% (0-3) Neutrophils # (Auto) 7.1x10^3uL (1.8-7.7) Lymphocytes # (Auto) 2.4x10^3/uL (1.0-4.8) Monocytes # (Auto) 1.0x10^3/uL (0.0-1.1) Eosinophils # (Auto) 0.1x10^3/uL (0.0-0.7) Basophils # (Auto) 0.0x10^3/uL (0.0-0.2) Sodium Level 143mmol/L (136-145) Potassium Level 3.8mmol/L (3.5-5.1) Chloride Level 108mmol/L (98-107) Carbon Dioxide Level 27mmol/L (21-32) Anion Gap 8 (6-14) Blood Urea Nitrogen 10mg/dL (7-20) Creatinine 0.7mg/dL (0.6-1.0) Estimated GFR (Cockcroft-Gault) 100.7 BUN/Creatinine Ratio 14 (6-20) Glucose Level 97mg/dL (70-99) Calcium Level 9.3mg/dL (8.5-10.1) Total Bilirubin 0.8mg/dL (0.2-1.0) Aspartate Amino Transf (AST/SGOT) 24U/L (15-37) Alanine Aminotransferase (ALT/SGPT) 27U/L (14-59) Alkaline Phosphatase 83U/L (46-116) Total Protein 6.2g/dL (6.4-8.2) Albumin 2.5g/dL (3.4-5.0) Albumin/Globulin Ratio 0.7 (1.0-1.7) Microbiology 08/16/16 Blood Culture - Preliminary, Resulted NO GROWTH AFTER 1 DAY Medications Current Medications Gabapentin (Neurontin) 300 mg TID PO Last administered on 08/17/16 10:05; Start 08/13/16 at 15:00 Acetaminophen/ Hydrocodone Bitart (Lortab 10/325) 1 tab PRN Q6HRS PRN PO PAIN Last administered on 08/15/16 13:38; Start 08/13/16 at 14:30; Stop 08/15/16 at 13:41; Status DC Fentanyl Citrate (Fentanyl 2ml Vial) 50 mcg PRN Q3HRS PRN IV PAIN Last administered on 08/14/16 08:35; Start 08/13/16 at 14:30; Stop 08/15/16 at 05:23 ; Status DC Lidocaine (Lidoderm) 1 patch DAILY TD Last administered on 08/17/16 10:07; Start 08/14/16 at 09:00 Fentanyl Citrate (Fentanyl 2ml Vial) 75 mcg PRN Q3HRS PRN IV PAIN Last administered on 08/14/16 10:21; Start 08/13/16 at 14:45; Stop 08/15/16 at 05:23 ; Status DC Acetaminophen (Tylenol) 650 mg PRN Q6HRS PRN PO MILD PAIN Last administered on 08/16/16 03:17; Start 08/13/16 at 16:15 Ondansetron HCl (Zofran) 4 mg PRN Q6HRS PRN IV Nausea; Start 08/14/16 at 07:00 ; Stop 08/15/16 at 06:59; Status DC Fentanyl Citrate (Fentanyl 2ml Vial) 25 mcg PRN Q5MIN PRN IV MILD PAIN; Start 08/14/16 at 07:00; Stop 08/15/16 at 06:59; Status DC Fentanyl Citrate (Fentanyl 2ml Vial) 50 mcg PRN Q5MIN PRN IV MODERATE PAIN Last administered on 08/14/16 14:06; Start 08/14/16 at 07:00; Stop 08/15/16 at 06:59; Status DC Morphine Sulfate 1 mg 1 mg PRN Q10MIN PRN IV SEVERE PAIN Last administered on 14:27; Start 08/14/16 at 07:00; Stop 08/15/16 at 06:59; Status DC Lactated Ringer's (Iv Lactated Ringers) 1,000 ml @ 0 mls/hr Q0M IV ; Start at 07:00; Stop 08/14/16 at 18:59; Status DC Lidocaine HCl 2 ml 1X PRN PRN ID IV START; Start 08/14/16 at 07:00; Stop at 06:59; Status DC Hydromorphone HCl (Dilaudid) 0.5 mg PRN Q10MIN PRN IV SEVERE PAIN, Second choice; Start 08/14/16 at 07:00; Stop 08/15/16 at 06:59; Status DC Prochlorperazine Edisylate 5 mg 5 mg PACU PRN PRN IV NAUSEA; Start 08/14/16 at 07:00; Stop 08/15/16 at 06:59; Status DC Bacitracin/Sodium Chloride (Bacitracin/Iv Sodium Chloride 0.9% 1000ml Bag) 1, 000 ml @ 1,000 mls/hr 1X PERIOP ONCE IRR Last administered on 08/14/16 12:12 ; Start 08/14/16 at 06:00; Stop 08/14/16 at 06:59; Status DC Amlodipine Besylate (Norvasc) 10 mg DAILY PO Last administered on 08/17/16 10: 06; Start 08/13/16 at 20:00 Clonidine HCl (Catapres) 0.1 mg PRN Q6HRS PRN PO HYPERTENSION, SEE COMMENTS Last administered on 08/13/16 23:44; Start 08/13/16 at 21:15 Thrombin 20,000 unit STK-MED ONCE TP Last administered on 08/14/16 12:12; Start 08/14/16 at 06:43; Stop 08/14/16 at 06:44; Status DC Gelatin (Gelfoam Size 100) 1 each STK-MED ONCE .ROUTE Last administered on 12:12; Start 08/14/16 at 06:43; Stop 08/14/16 at 06:44; Status DC Ketorolac Tromethamine (Toradol For Or Only) 60 mg STK-MED ONCE .ROUTE Last administered on 08/14/16 12:12; Start 08/14/16 at 06:43; Stop 08/14/16 at 06:44 ; Status DC Bupivacaine HCl/ Epinephrine Bitart (Sensorcain-Mpf Epi 0.5%-1:[id number]) 30 ml STK -MED ONCE .ROUTE Last administered on 08/14/16 12:12; Start 08/14/16 at 06:44 ; Stop 08/14/16 at 06:45; Status DC Amlodipine Besylate (Norvasc) 10 mg DAILY PO ; Start 08/14/16 at 09:00; Status Cancel Pantoprazole Sodium 40 mg 40 mg DAILYAC PO Last administered on 08/15/16 06:12 ; Start 08/14/16 at 08:30; Stop 08/16/16 at 05:26; Status DC Vancomycin HCl 250 ml @ As Directed STK-MED ONCE .ROUTE ; Start 08/14/16 at 09: 03; Stop 08/14/16 at 09:04; Status DC Vancomycin HCl 250 ml @ 250 mls/hr 1X PREOP PRN IV Pre Op Last administered on 08/14/16t 11:51; Start 08/15/16 at 06:00; Stop 08/15/16 at 18:00; Status DC Dexamethasone Sodium Phosphate (Decadron) 20 mg STK-MED ONCE .ROUTE ; Start at 09:35; Stop 08/14/16 at 09:36; Status DC Ondansetron HCl 4 mg 4 mg STK-MED ONCE .ROUTE ; Start 08/14/16 at 09:35; Stop at 09:36; Status DC Propofol (Diprivan) 20 ml @ As Directed STK-MED ONCE IV ; Start 08/14/16 at 09: 35; Stop 08/14/16 at 09:36; Status DC Lidocaine HCl 100 mg 100 mg STK-MED ONCE .ROUTE ; Start 08/14/16 at 09:35; Stop 08/14/16 at 09:36; Status DC Propofol (Diprivan) 50 ml @ As Directed STK-MED ONCE IV ; Start 08/14/16 at 09: 35; Stop 08/14/16 at 09:36; Status DC Multi-Ingred Cream/Lotion/Oil/ Oint (Artificial Tears Eye Oint) 7 hansel STK-MED ONCE .ROUTE ; Start 08/14/16 at 09:35; Stop 08/14/16 at 09:36; Status DC Sodium Chloride (Sodium Chloride) 50 ml STK-MED ONCE IJ ; Start 08/14/16 at 09: 35; Stop 08/14/16 at 09:36; Status DC Desflurane (Suprane) 90 ml STK-MED ONCE IH ; Start 08/14/16 at 09:35; Stop 08/14 at 09:36; Status DC Fentanyl Citrate (Fentanyl 2ml Vial) 100 mcg STK-MED ONCE .ROUTE ; Start at 09:35; Stop 08/14/16 at 09:36; Status DC Remifentanil HCl (Ultiva) 2 mg STK-MED ONCE IV ; Start 08/14/16 at 09:36; Stop 08/14/16 at 09:37; Status DC Rocuronium [place] (Zemuron) 50 mg STK-MED ONCE .ROUTE ; Start 08/14/16 at 09:36 ; Stop 08/14/16 at 09:37; Status DC Phenylephrine HCl (John-Synephrine Inj) 10 mg STK-MED ONCE .ROUTE ; Start at 11:53; Stop 08/14/16 at 11:54; Status DC Ephedrine Sulfate 50 mg STK-MED ONCE IV ; Start 08/14/16 at 12:13; Stop at 12:14; Status DC Fentanyl Citrate (Fentanyl 2ml Vial) 50 mcg PRN Q3HRS PRN IV MODERATE PAIN Last administered on 08/16/16 20:10; Start 08/15/16 at 05:23 Fentanyl Citrate (Fentanyl 2ml Vial) 75 mcg PRN Q3HRS PRN IV SEVERE PAIN Last administered on 08/17/16 10:33; Start 08/15/16 at 05:23 Amlodipine Besylate (Norvasc) 10 mg STK-MED ONCE .ROUTE ; Start 08/15/16 at 08: 57; Stop 08/15/16 at 08:58; Status DC Potassium Chloride (Klor-Con) 20 meq 1X ONCE PO ; Start 08/15/16 at 10:45; Stop 08/15/16 at 10:46; Status Cancel Acetaminophen/ Hydrocodone Bitart (Lortab 10/325) 1 tab PRN Q4HRS PRN PO PAIN Last administered on 08/17/16 02:31; Start 08/15/16 at 13:39 Potassium Chloride 20 meq 20 meq 1X ONCE PO Last administered on 08/15/16 18: 22; Start 08/15/16 at 15:30; Stop 08/15/16 at 15:31; Status DC Vancomycin HCl 250 ml @ 250 mls/hr 1X ONCE IV ; Start 08/16/16 at 03:30; Stop 08/16/16 at 04:29; Status UNV Vancomycin HCl 1 each 1 each PRN DAILY PRN MC SEE COMMENTS Last administered on 08/16/16 03:54; Start 08/16/16 at 03:45 Vancomycin HCl/ Sodium Chloride (Iv Sodium Chloride 0.9% 250ml) 250 ml @ 250 mls/hr Q24H IV Last administered on 08/16/16 14:11; Start 08/16/16 at 12:00 Vancomycin HCl 1 each 1X ONCE MC ; Start 08/17/16 at 11:30; Stop 08/17/16 at 11: 31 Vancomycin HCl (Vanco Per Pharmacy) 1 each 1X ONCE MC ; Start 08/16/16 at 03:45 ; Stop 08/16/16 at 03:46; Status UNV Pantoprazole Sodium (Protonix) 40 mg DAILYAC PO Last administered on 08/17/16 07:52; Start 08/16/16 at 05:26 Amlodipine Besylate 10 mg 10 mg STK-MED ONCE .ROUTE ; Start 08/16/16 at 08:11; Stop 08/16/16 at 08:12; Status DC Meropenem/Sodium Chloride (Merrem/Iv Sodium Chloride 0.9% 50ml) 50 ml @ 100 mls /hr Q8HRS IV Last administered on 08/17/16 06:23; Start 08/16/16 at 11:00 Bisacodyl (Dulcolax Tab) 10 mg DAILY PO Last administered on 08/17/16 10:05; Start 08/17/16 at 09:00 Bisacodyl (Dulcolax Supp) 10 mg PRN DAILY PRN NC CONSTIPATION; Start 08/16/16 at 10:45 Senna/Docusate Sodium (Senna Plus) 1 tab BID PO Last administered on 08/17/16 10:06; Start 08/16/16 at 21:00 Magnesium Citrate (Citroma) 296 ml PRN 1X PRN PO CONSTIPATION; Start 08/16/16 at 10:45 Lorazepam (Ativan) 0.5 mg PRN Q6HRS PRN PO ANXIETY / AGITATION Last administered on 08/16/16 21:56; Start 08/16/16 at 12:45 Gabapentin (Neurontin) 300 mg STK-MED ONCE PO ; Start 08/17/16 at 08:39; Stop 08/17/16 at 08:40; Status DC Amlodipine Besylate (Norvasc) 10 mg STK-MED ONCE .ROUTE ; Start 08/17/16 at 08:39 ; Stop 08/17/16 at 08:40; Status DC Active Scripts Active Senna-Time S Tablet (Sennosides/Docusate Sodium) 1 Each Tablet 1 Tab PO BID [Bisacodyl] 10 MG Supp.rect 10 Mg NC PRN DAILY PRN Bisacodyl 5 Mg Tablet.dr 10 Mg PO DAILY Lidoderm (Lidocaine) 700 Mg Adh..patch 1 Patch TD DAILY Hydrocodone-Apap 10-325 (Hydrocodone Bit/Acetaminophen) 1 Each Tablet 1 Tab PO PRN Q4HRS PRN Gabapentin 300 Mg Capsule 300 Mg PO TID Tylenol (Acetaminophen) 325 Mg Tablet 650 Mg PO PRN Q6HRS PRN Reported Amlodipine Besylate 10 Mg Tablet 1 Tab PO DAILY Vitals/I & O Vital Sign - Last 24 Hours 08/16/16 08/16/16 08/16/16 08/16/16 15:00 15:39 19:08 19:13 Temp 100.9 101.1 100.9 101.1 Pulse 104 113 Resp 18 B/P 127/80 119/73 Pulse Ox 97 98 O2 Delivery Room Air Room Air Room Air Room Air 08/16/16 08/16/16 08/17/16 08/17/16 20:10 23:06 03:03 07:00 Temp 98.4 100.2 97.7 98.4 100.2 97.7 Pulse 87 103 74 Resp 20 16 18 B/P 131/79 122/87 138/85 Pulse Ox 97 98 97 99 O2 Delivery Room Air Room Air Room Air Room Air 08/17/16 08/17/16 08/17/16 08/17/16 07:52 10:06 10:33 11:00 Temp 98.6 98.6 Pulse 74 103 Resp 18 B/P 138/85 135/86 Pulse Ox 93 O2 Delivery Room Air Room Air Room Air Intake and Output 08/16/16 08/16/16 08/17/16 15:00 23:00 07:00 Intake Total 200 ml 500 ml 260 ml Balance 200 ml 500 ml 260 ml [employer] Aug 17, 2016 11:19
--- NOTE | 2016-08-17 11:35 | PDOC ---
PROGRESS NOTES Subjective Subjective She feels better. Objective Objective Vital Signs Date Time Temp Pulse Resp B/P Pulse Ox O2 Delivery O2 Flow Rate FiO2 08/17/16 11:00 98.6 103 18 135/86 93 Room Air 98.6 08/15/16 20:01 2.0 Intake and Output 08/17/16 06:59 Intake Total 960 ml Balance 960 ml Intake Oral 960 ml Physical Exam Physical Exam She is sitting up in bedside recliner with right AFO on.She is asking for parenteral narcotics.She remains constipated. Assessment Assessment Problems Medical Problems: (1) Acute exacerbation of chronic low back pain Status: Acute Plan Plan of Care Waiting for ct scan of lumbar spine as ordered by ID and clearence from them before transfer to SNF, Comment Review of Relevant I have reviewed the following items [place] (where applicable) has been applied. Labs Laboratory Tests Test 08/16/16 04:00 08/17/16 04:10 White Blood Count 11.9x10^3/uL (4.0-11.0) 10.6x10^3/uL (4.0-11.0) Red Blood Count 3.13x10^6/uL (3.50-5.40) 3.10x10^6/uL (3.50-5.40) Hemoglobin 10.7g/dL (12.0-15.5) 10.8g/dL (12.0-15.5) Hematocrit 32.3% (36.0-47.0) 32.0% (36.0-47.0) Mean Corpuscular Volume 103fL (79-100) 103fL (79-100) Mean Corpuscular Hemoglobin 34pg (25-35) 35pg (25-35) Mean Corpuscular Hemoglobin Concent 33g/dL (31-37) 34g/dL (31-37) Red Cell Distribution Width 15.4% (11.5-14.5) 15.5% (11.5-14.5) Platelet Count 138x10^3/uL (140-400) 141x10^3/uL (140-400) Neutrophils (%) (Auto) 71% (31-73) 67% (31-73) Lymphocytes (%) (Auto) 19% (24-48) 23% (24-48) Monocytes (%) (Auto) 9% (0-9) 10% (0-9) Eosinophils (%) (Auto) 0% (0-3) 1% (0-3) Basophils (%) (Auto) 0% (0-3) 0% (0-3) Neutrophils # (Auto) 8.5x10^3uL (1.8-7.7) 7.1x10^3uL (1.8-7.7) Lymphocytes # (Auto) 2.3x10^3/uL (1.0-4.8) 2.4x10^3/uL (1.0-4.8) Monocytes # (Auto) 1.0x10^3/uL (0.0-1.1) 1.0x10^3/uL (0.0-1.1) Eosinophils # (Auto) 0.0x10^3/uL (0.0-0.7) 0.1x10^3/uL (0.0-0.7) Basophils # (Auto) 0.0x10^3/uL (0.0-0.2) 0.0x10^3/uL (0.0-0.2) Sodium Level 144mmol/L (136-145) 143mmol/L (136-145) Potassium Level 3.6mmol/L (3.5-5.1) 3.8mmol/L (3.5-5.1) Chloride Level 110mmol/L (98-107) 108mmol/L (98-107) Carbon Dioxide Level 25mmol/L (21-32) 27mmol/L (21-32) Anion Gap 9 (6-14) 8 (6-14) Blood Urea Nitrogen 12mg/dL (7-20) 10mg/dL (7-20) Creatinine 0.7mg/dL (0.6-1.0) 0.7mg/dL (0.6-1.0) Estimated GFR (Cockcroft-Gault) 100.7 100.7 BUN/Creatinine Ratio 17 (6-20) 14 (6-20) Glucose Level 98mg/dL (70-99) 97mg/dL (70-99) Calcium Level 9.4mg/dL (8.5-10.1) 9.3mg/dL (8.5-10.1) Total Bilirubin 1.2mg/dL (0.2-1.0) 0.8mg/dL (0.2-1.0) Aspartate Amino Transf (AST/SGOT) 39U/L (15-37) 24U/L (15-37) Alanine Aminotransferase (ALT/SGPT) 31U/L (14-59) 27U/L (14-59) Alkaline Phosphatase 85U/L (46-116) 83U/L (46-116) Total Protein 6.4g/dL (6.4-8.2) 6.2g/dL (6.4-8.2) Albumin 3.0g/dL (3.4-5.0) 2.5g/dL (3.4-5.0) Albumin/Globulin Ratio 0.9 (1.0-1.7) 0.7 (1.0-1.7) Laboratory Tests Test 08/17/16 04:10 White Blood Count 10.6x10^3/uL (4.0-11.0) Red Blood Count 3.10x10^6/uL (3.50-5.40) Hemoglobin 10.8g/dL (12.0-15.5) Hematocrit 32.0% (36.0-47.0) Mean Corpuscular Volume 103fL (79-100) Mean Corpuscular Hemoglobin 35pg (25-35) Mean Corpuscular Hemoglobin Concent 34g/dL (31-37) Red Cell Distribution Width 15.5% (11.5-14.5) Platelet Count 141x10^3/uL (140-400) Neutrophils (%) (Auto) 67% (31-73) Lymphocytes (%) (Auto) 23% (24-48) Monocytes (%) (Auto) 10% (0-9) Eosinophils (%) (Auto) 1% (0-3) Basophils (%) (Auto) 0% (0-3) Neutrophils # (Auto) 7.1x10^3uL (1.8-7.7) Lymphocytes # (Auto) 2.4x10^3/uL (1.0-4.8) Monocytes # (Auto) 1.0x10^3/uL (0.0-1.1) Eosinophils # (Auto) 0.1x10^3/uL (0.0-0.7) Basophils # (Auto) 0.0x10^3/uL (0.0-0.2) Sodium Level 143mmol/L (136-145) Potassium Level 3.8mmol/L (3.5-5.1) Chloride Level 108mmol/L (98-107) Carbon Dioxide Level 27mmol/L (21-32) Anion Gap 8 (6-14) Blood Urea Nitrogen 10mg/dL (7-20) Creatinine 0.7mg/dL (0.6-1.0) Estimated GFR (Cockcroft-Gault) 100.7 BUN/Creatinine Ratio 14 (6-20) Glucose Level 97mg/dL (70-99) Calcium Level 9.3mg/dL (8.5-10.1) Total Bilirubin 0.8mg/dL (0.2-1.0) Aspartate Amino Transf (AST/SGOT) 24U/L (15-37) Alanine Aminotransferase (ALT/SGPT) 27U/L (14-59) Alkaline Phosphatase 83U/L (46-116) Total Protein 6.2g/dL (6.4-8.2) Albumin 2.5g/dL (3.4-5.0) Albumin/Globulin Ratio 0.7 (1.0-1.7) Microbiology 08/16/16 Blood Culture - Preliminary, Resulted NO GROWTH AFTER 1 DAY Medications Current Medications Gabapentin (Neurontin) 300 mg TID PO Last administered on 08/17/16 10:05; Start 08/13/16 at 15:00 Acetaminophen/ Hydrocodone Bitart (Lortab 10/325) 1 tab PRN Q6HRS PRN PO PAIN Last administered on 08/15/16 13:38; Start 08/13/16 at 14:30; Stop 08/15/16 at 13:41; Status DC Fentanyl Citrate (Fentanyl 2ml Vial) 50 mcg PRN Q3HRS PRN IV PAIN Last administered on 08/14/16 08:35; Start 08/13/16 at 14:30; Stop 08/15/16 at 05:23 ; Status DC Lidocaine (Lidoderm) 1 patch DAILY TD Last administered on 08/17/16 10:07; Start 08/14/16 at 09:00 Fentanyl Citrate (Fentanyl 2ml Vial) 75 mcg PRN Q3HRS PRN IV PAIN Last administered on 08/14/16 10:21; Start 08/13/16 at 14:45; Stop 08/15/16 at 05:23 ; Status DC Acetaminophen (Tylenol) 650 mg PRN Q6HRS PRN PO MILD PAIN Last administered on 08/16/16 03:17; Start 08/13/16 at 16:15 Ondansetron HCl (Zofran) 4 mg PRN Q6HRS PRN IV Nausea; Start 08/14/16 at 07:00 ; Stop 08/15/16 at 06:59; Status DC Fentanyl Citrate (Fentanyl 2ml Vial) 25 mcg PRN Q5MIN PRN IV MILD PAIN; Start 08/14/16 at 07:00; Stop 08/15/16 at 06:59; Status DC Fentanyl Citrate (Fentanyl 2ml Vial) 50 mcg PRN Q5MIN PRN IV MODERATE PAIN Last administered on 08/14/16 14:06; Start 08/14/16 at 07:00; Stop 08/15/16 at 06:59; Status DC Morphine Sulfate 1 mg 1 mg PRN Q10MIN PRN IV SEVERE PAIN Last administered on 14:27; Start 08/14/16 at 07:00; Stop 08/15/16 at 06:59; Status DC Lactated Ringer's (Iv Lactated Ringers) 1,000 ml @ 0 mls/hr Q0M IV ; Start at 07:00; Stop 08/14/16 at 18:59; Status DC Lidocaine HCl 2 ml 1X PRN PRN ID IV START; Start 08/14/16 at 07:00; Stop at 06:59; Status DC Hydromorphone HCl (Dilaudid) 0.5 mg PRN Q10MIN PRN IV SEVERE PAIN, Second choice; Start 08/14/16 at 07:00; Stop 08/15/16 at 06:59; Status DC Prochlorperazine Edisylate 5 mg 5 mg PACU PRN PRN IV NAUSEA; Start 08/14/16 at 07:00; Stop 08/15/16 at 06:59; Status DC Bacitracin/Sodium Chloride (Bacitracin/Iv Sodium Chloride 0.9% 1000ml Bag) 1, 000 ml @ 1,000 mls/hr 1X PERIOP ONCE IRR Last administered on 08/14/16 12:12 ; Start 08/14/16 at 06:00; Stop 08/14/16 at 06:59; Status DC Amlodipine Besylate (Norvasc) 10 mg DAILY PO Last administered on 08/17/16 10: 06; Start 08/13/16 at 20:00 Clonidine HCl (Catapres) 0.1 mg PRN Q6HRS PRN PO HYPERTENSION, SEE COMMENTS Last administered on 08/13/16 23:44; Start 08/13/16 at 21:15 Thrombin 20,000 unit STK-MED ONCE TP Last administered on 08/14/16 12:12; Start 08/14/16 at 06:43; Stop 08/14/16 at 06:44; Status DC Gelatin (Gelfoam Size 100) 1 each STK-MED ONCE .ROUTE Last administered on 12:12; Start 08/14/16 at 06:43; Stop 08/14/16 at 06:44; Status DC Ketorolac Tromethamine (Toradol For Or Only) 60 mg STK-MED ONCE .ROUTE Last administered on 08/14/16 12:12; Start 08/14/16 at 06:43; Stop 08/14/16 at 06:44 ; Status DC Bupivacaine HCl/ Epinephrine Bitart (Sensorcain-Mpf Epi 0.5%-1:[id number]) 30 ml STK -MED ONCE .ROUTE Last administered on 08/14/16 12:12; Start 08/14/16 at 06:44 ; Stop 08/14/16 at 06:45; Status DC Amlodipine Besylate (Norvasc) 10 mg DAILY PO ; Start 08/14/16 at 09:00; Status Cancel Pantoprazole Sodium 40 mg 40 mg DAILYAC PO Last administered on 08/15/16 06:12 ; Start 08/14/16 at 08:30; Stop 08/16/16 at 05:26; Status DC Vancomycin HCl 250 ml @ As Directed STK-MED ONCE .ROUTE ; Start 08/14/16 at 09: 03; Stop 08/14/16 at 09:04; Status DC Vancomycin HCl 250 ml @ 250 mls/hr 1X PREOP PRN IV Pre Op Last administered on 08/14/16t 11:51; Start 08/15/16 at 06:00; Stop 08/15/16 at 18:00; Status DC Dexamethasone Sodium Phosphate (Decadron) 20 mg STK-MED ONCE .ROUTE ; Start at 09:35; Stop 08/14/16 at 09:36; Status DC Ondansetron HCl 4 mg 4 mg STK-MED ONCE .ROUTE ; Start 08/14/16 at 09:35; Stop at 09:36; Status DC Propofol (Diprivan) 20 ml @ As Directed STK-MED ONCE IV ; Start 08/14/16 at 09: 35; Stop 08/14/16 at 09:36; Status DC Lidocaine HCl 100 mg 100 mg STK-MED ONCE .ROUTE ; Start 08/14/16 at 09:35; Stop 08/14/16 at 09:36; Status DC Propofol (Diprivan) 50 ml @ As Directed STK-MED ONCE IV ; Start 08/14/16 at 09: 35; Stop 08/14/16 at 09:36; Status DC Multi-Ingred Cream/Lotion/Oil/ Oint (Artificial Tears Eye Oint) 7 hansel STK-MED ONCE .ROUTE ; Start 08/14/16 at 09:35; Stop 08/14/16 at 09:36; Status DC Sodium Chloride (Sodium Chloride) 50 ml STK-MED ONCE IJ ; Start 08/14/16 at 09: 35; Stop 08/14/16 at 09:36; Status DC Desflurane (Suprane) 90 ml STK-MED ONCE IH ; Start 08/14/16 at 09:35; Stop 08/14 at 09:36; Status DC Fentanyl Citrate (Fentanyl 2ml Vial) 100 mcg STK-MED ONCE .ROUTE ; Start at 09:35; Stop 08/14/16 at 09:36; Status DC Remifentanil HCl (Ultiva) 2 mg STK-MED ONCE IV ; Start 08/14/16 at 09:36; Stop 08/14/16 at 09:37; Status DC Rocuronium Amelia (Zemuron) 50 mg STK-MED ONCE .ROUTE ; Start 08/14/16 at 09:36 ; Stop 08/14/16 at 09:37; Status DC Phenylephrine HCl (John-Synephrine Inj) 10 mg STK-MED ONCE .ROUTE ; Start at 11:53; Stop 08/14/16 at 11:54; Status DC Ephedrine Sulfate 50 mg STK-MED ONCE IV ; Start 08/14/16 at 12:13; Stop at 12:14; Status DC Fentanyl Citrate (Fentanyl 2ml Vial) 50 mcg PRN Q3HRS PRN IV MODERATE PAIN Last administered on 08/16/16 20:10; Start 08/15/16 at 05:23 Fentanyl Citrate (Fentanyl 2ml Vial) 75 mcg PRN Q3HRS PRN IV SEVERE PAIN Last administered on 08/17/16 10:33; Start 08/15/16 at 05:23 Amlodipine Besylate (Norvasc) 10 mg STK-MED ONCE .ROUTE ; Start 08/15/16 at 08: 57; Stop 08/15/16 at 08:58; Status DC Potassium Chloride (Klor-Con) 20 meq 1X ONCE PO ; Start 08/15/16 at 10:45; Stop 08/15/16 at 10:46; Status Cancel Acetaminophen/ Hydrocodone Bitart (Lortab 10/325) 1 tab PRN Q4HRS PRN PO PAIN Last administered on 08/17/16 02:31; Start 08/15/16 at 13:39 Potassium Chloride 20 meq 20 meq 1X ONCE PO Last administered on 08/15/16 18: 22; Start 08/15/16 at 15:30; Stop 08/15/16 at 15:31; Status DC Vancomycin HCl 250 ml @ 250 mls/hr 1X ONCE IV ; Start 08/16/16 at 03:30; Stop 08/16/16 at 04:29; Status UNV Vancomycin HCl 1 each 1 each PRN DAILY PRN MC SEE COMMENTS Last administered on 08/16/16 03:54; Start 08/16/16 at 03:45 Vancomycin HCl/ Sodium Chloride (Iv Sodium Chloride 0.9% 250ml) 250 ml @ 250 mls/hr Q24H IV Last administered on 08/16/16 14:11; Start 08/16/16 at 12:00 Vancomycin HCl 1 each 1X ONCE MC ; Start 08/17/16 at 11:30; Stop 08/17/16 at 11: 31 Vancomycin HCl (Vanco Per Pharmacy) 1 each 1X ONCE MC ; Start 08/16/16 at 03:45 ; Stop 08/16/16 at 03:46; Status UNV Pantoprazole Sodium (Protonix) 40 mg DAILYAC PO Last administered on 08/17/16 07:52; Start 08/16/16 at 05:26 Amlodipine Besylate 10 mg 10 mg STK-MED ONCE .ROUTE ; Start 08/16/16 at 08:11; Stop 08/16/16 at 08:12; Status DC Meropenem/Sodium Chloride (Merrem/Iv Sodium Chloride 0.9% 50ml) 50 ml @ 100 mls /hr Q8HRS IV Last administered on 08/17/16 06:23; Start 08/16/16 at 11:00 Bisacodyl (Dulcolax Tab) 10 mg DAILY PO Last administered on 08/17/16 10:05; Start 08/17/16 at 09:00 Bisacodyl (Dulcolax Supp) 10 mg PRN DAILY PRN DC CONSTIPATION; Start 08/16/16 at 10:45 Senna/Docusate Sodium (Senna Plus) 1 tab BID PO Last administered on 08/17/16 10:06; Start 08/16/16 at 21:00 Magnesium Citrate (Citroma) 296 ml PRN 1X PRN PO CONSTIPATION; Start 08/16/16 at 10:45 Lorazepam (Ativan) 0.5 mg PRN Q6HRS PRN PO ANXIETY / AGITATION Last administered on 08/16/16 21:56; Start 08/16/16 at 12:45 Gabapentin (Neurontin) 300 mg STK-MED ONCE PO ; Start 08/17/16 at 08:39; Stop 08/17/16 at 08:40; Status DC Amlodipine Besylate (Norvasc) 10 mg STK-MED ONCE .ROUTE ; Start 08/17/16 at 08:39 ; Stop 08/17/16 at 08:40; Status DC Active Scripts Active Senna-Time S Tablet (Sennosides/Docusate Sodium) 1 Each Tablet 1 Tab PO BID [Bisacodyl] 10 MG Supp.rect 10 Mg DC PRN DAILY PRN Bisacodyl 5 Mg Tablet.dr 10 Mg PO DAILY Lidoderm (Lidocaine) 700 Mg Adh..patch 1 Patch TD DAILY Hydrocodone-Apap 10-325 (Hydrocodone Bit/Acetaminophen) 1 Each Tablet 1 Tab PO PRN Q4HRS PRN Gabapentin 300 Mg Capsule 300 Mg PO TID Tylenol (Acetaminophen) 325 Mg Tablet 650 Mg PO PRN Q6HRS PRN Reported Amlodipine Besylate 10 Mg Tablet 1 Tab PO DAILY Vitals/I & O Vital Sign - Last 24 Hours 08/16/16 08/16/16 08/16/16 08/16/16 15:00 15:39 19:08 19:13 Temp 100.9 101.1 100.9 101.1 Pulse 104 113 Resp 18 16 18 B/P 127/80 119/73 Pulse Ox 97 98 O2 Delivery Room Air Room Air Room Air Room Air 08/16/16 08/16/16 08/17/16 08/17/16 20:10 23:06 03:03 07:00 Temp 98.4 100.2 97.7 98.4 100.2 97.7 Pulse 87 103 74 Resp 20 18 16 18 B/P 131/79 122/87 138/85 Pulse Ox 97 98 97 99 O2 Delivery Room Air Room Air Room Air Room Air 08/17/16 08/17/16 08/17/16 08/17/16 07:52 10:06 10:33 11:00 Temp 98.6 98.6 Pulse 74 103 Resp 18 B/P 138/85 135/86 Pulse Ox 93 O2 Delivery Room Air Room Air Room Air Intake and Output 08/16/16 08/16/16 08/17/16 14:59 22:59 06:59 Intake Total 200 ml 500 ml 260 ml Balance 200 ml 500 ml 260 ml RAUL DEVI MD Aug 17, 2016 11:35
[2016-08-17] MEDS: VANCOMYCIN 750 MG in IV NORMAL SALINE 250ML 250 ML IV SCH (12:00)
[2016-08-17] MEDS ORDERED: VANCOMYCIN 1 GM in IV NORMAL SALINE 250ML 250 ML IV SCH (13:00)
[2016-08-17] MEDS: MORPHINE ER 15 MG TABLET.ER PO SCH ×2 (13:13→21:04)
[2016-08-17] MEDS ORDERED: LORAZEPAM 0.5 MG TABLET. PO PRN (13:30)
--- NOTE | 2016-08-17 13:34 | PDOC ---
Infectious Disease Note Subjective Subjective Fevers Tmax 101.1 Feels cold all the time c/o back pain, upset about pain meds, says IV works better for relief + right leg weakness and foot drop Says no BM in 2 weeks ROS ROS GEN: Denies sweats HEENT: Denies sore throat CV: Denies chest pain RESP: Denies shortness of air, cough GI: Denies n/v NEURO: Denies confusion, dizziness Vital Sign Vital Signs Vital Signs Date Time Temp Pulse Resp B/P Pulse Ox O2 Delivery O2 Flow Rate FiO2 08/17/16 11:00 98.6 103 18 135/86 93 Room Air 98.6 Physical Exam PHYSICAL EXAM GENERAL: Propped up in bed, upset HEENT: OC/OP clear NECK: Supple, no JVD, no LN LUNGS: Clear HEART: S1S2, no gallop, no murmur ABD: Soft, NT EXT: No edema, no cyanosis. 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, no focal neurologic deficit SKIN: No rash IV: ok Labs Lab Laboratory Tests Test 08/17/16 04:10 08/17/16 11:20 White Blood Count 10.6x10^3/uL (4.0-11.0) Red Blood Count 3.10x10^6/uL (3.50-5.40) Hemoglobin 10.8g/dL (12.0-15.5) Hematocrit 32.0% (36.0-47.0) Mean Corpuscular Volume 103fL (79-100) Mean Corpuscular Hemoglobin 35pg (25-35) Mean Corpuscular Hemoglobin Concent 34g/dL (31-37) Red Cell Distribution Width 15.5% (11.5-14.5) Platelet Count 141x10^3/uL (140-400) Neutrophils (%) (Auto) 67% (31-73) Lymphocytes (%) (Auto) 23% (24-48) Monocytes (%) (Auto) 10% (0-9) Eosinophils (%) (Auto) 1% (0-3) Basophils (%) (Auto) 0% (0-3) Neutrophils # (Auto) 7.1x10^3uL (1.8-7.7) Lymphocytes # (Auto) 2.4x10^3/uL (1.0-4.8) Monocytes # (Auto) 1.0x10^3/uL (0.0-1.1) Eosinophils # (Auto) 0.1x10^3/uL (0.0-0.7) Basophils # (Auto) 0.0x10^3/uL (0.0-0.2) Sodium Level 143mmol/L (136-145) Potassium Level 3.8mmol/L (3.5-5.1) Chloride Level 108mmol/L (98-107) Carbon Dioxide Level 27mmol/L (21-32) Anion Gap 8 (6-14) Blood Urea Nitrogen 10mg/dL (7-20) Creatinine 0.7mg/dL (0.6-1.0) Estimated GFR (Cockcroft-Gault) 100.7 BUN/Creatinine Ratio 14 (6-20) Glucose Level 97mg/dL (70-99) Calcium Level 9.3mg/dL (8.5-10.1) Total Bilirubin 0.8mg/dL (0.2-1.0) Aspartate Amino Transf (AST/SGOT) 24U/L (15-37) Alanine Aminotransferase (ALT/SGPT) 27U/L (14-59) Alkaline Phosphatase 83U/L (46-116) Total Protein 6.2g/dL (6.4-8.2) Albumin 2.5g/dL (3.4-5.0) Albumin/Globulin Ratio 0.7 (1.0-1.7) Vancomycin Level Trough 2.8mcg/mL (10.0-20.0) CT chest IMPRESSION: 1. Old healed granulomatous disease in the chest. 2. Mild bilateral linear scarring and/or atelectasis. 3. Tiny nonspecific right upper lobe subsolid nodule. Depending on the patient's risk factors, CT follow-up may be useful to establish stability. Micro BLOOD CULTURE Preliminary NO GROWTH AFTER 1 DAY Objective Assessment Fever - better Chills Lumbar spinal stenosis at L4-L5 bilateral with right footdrop. -s/p bilateral hemilaminectomies with microdecompression of dura and nerve root , 08/14. Wound is very clean. CT chest neg Leukocytosis, improved ? post op Constipation HTN CKD COPD Plan Plan of Care D/c vanc as improving with low levels vanc trough 2.8 Cont meropenem F/u labs and cults Attending Co-Sign Attending Co-Sign The patient was seen and interviewed as well as examined at the bedside. The chart was reviewed. The case was discussed. Agree with the plan of care. HIEU BLAND APRN Aug 17, 2016 13:34 YESIKA ARANA MD Aug 17, 2016 14:59
[2016-08-17 15:00] VITALS: BP 114/80
[2016-08-17 19:00] VITALS: BP 121/83
[2016-08-17 22:41] VITALS: BP 137/88
[2016-08-18 02:38] VITALS: BP 114/73
[2016-08-18 05:39] LABS: BASO % 0 % (0-3); EOS % 2 % (0-3); RED CELL DISTRIBUTION WIDTH 15.2 % (11.5-14.5)
[2016-08-18] MEDS: PANTOPRAZOLE 40 MG TABLET.DR. PO SCH (05:49)
[2016-08-18] MEDS: MEROPENEM 500 MG in IV NORMAL SALINE 50ML 50 ML IV SCH ×3 (05:49→21:32)
[2016-08-18 05:51] LABS: HEMOGLOBIN 10.5 g/dL (12.0-15.5); MEAN CORPUSCULAR HEMOGLOBIN 35 pg (25-35); MEAN CORPUSCULAR HGB CONC 34 g/dL (31-37); MEAN CORPUSCULAR VOLUME 102 fL (79-100); NEUT % 63 % (31-73); PLATELET COUNT 143 x10^3/uL (140-400); RED BLOOD COUNT 3.04 x10^6/uL (3.50-5.40); WHITE BLOOD COUNT 8.2 x10^3/uL (4.0-11.0)
[2016-08-18 05:52] LABS: LYMPH # 2.4 x10^3/uL (1.0-4.8); LYMPH % 29 % (24-48); MONO % 6 % (0-9)
[2016-08-18 05:53] LABS: CALCIUM 9.3 mg/dL (8.5-10.1); CREATININE 0.9 mg/dL (0.6-1.0); GFR 75.3; POTASSIUM 3.8 mmol/L (3.5-5.1)
[2016-08-18] MEDS: HYDROCODONE/APAP 10/325 TABLET. PO PRN ×2 (05:53→13:28)
[2016-08-18 07:00] VITALS: BP 115/74
[2016-08-18] MEDS: MORPHINE ER 15 MG TABLET.ER PO SCH ×2 (08:24→21:18)
[2016-08-18] MEDS: GABAPENTIN 300 MG CAPSULE. PO SCH ×3 (08:24→21:18)
[2016-08-18] MEDS: AMLODIPINE BESYLATE 10 MG TABLET. PO SCH (08:24)
[2016-08-18] MEDS: BISACODYL 5 MG TABLET.DR. PO SCH (08:25)
[2016-08-18] MEDS: LIDOCAINE (700MG/PATCH) PATCH. TD SCH (08:25)
[2016-08-18] MEDS: SENNOSIDES/DOCUSATE 8.6/50MG TABLET. PO SCH ×2 (08:25→21:18)
--- NOTE | 2016-08-18 10:12 | PDOC ---
Infectious Disease Note Subjective Subjective Feeling better this morning No fever last 24 hours Pain better controlled + BM ROS ROS GEN: Denies chills, sweats HEENT: Denies sore throat CV: Denies chest pain RESP: Denies shortness of air, cough GI: Denies n/v Vital Sign Vital Signs Vital Signs Date Time Temp Pulse Resp B/P Pulse Ox O2 Delivery O2 Flow Rate FiO2 08/18/16 08:24 92 115/74 08/18/16 08:24 95 Room Air 2.0 08/18/16 07:00 98.6 20 98.6 Physical Exam PHYSICAL EXAM GENERAL: Propped up in bed, smiling, relaxed HEENT: OC/OP clear NECK: Supple, no JVD, no LN LUNGS: Clear HEART: S1S2, no gallop, no murmur BACK: incision well approx. No redness, swelling or drainage. Dressing dry ABD: Soft, NT EXT: No edema, no cyanosis. right foot drop. 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, no focal neurologic deficit SKIN: No rash IV: ok Labs Lab Laboratory Tests Test 08/17/16 11:20 08/18/16 05:04 Vancomycin Level Trough 2.8mcg/mL (10.0-20.0) Vancomycin Last Dose Date 08/16/16 Vancomycin Last Dose Time 1200 White Blood Count 8.2x10^3/uL (4.0-11.0) Red Blood Count 3.04x10^6/uL (3.50-5.40) Hemoglobin 10.5g/dL (12.0-15.5) Hematocrit 31.0% (36.0-47.0) Mean Corpuscular Volume 102fL (79-100) Mean Corpuscular Hemoglobin 35pg (25-35) Mean Corpuscular Hemoglobin Concent 34g/dL (31-37) Red Cell Distribution Width 15.2% (11.5-14.5) Platelet Count 143x10^3/uL (140-400) Neutrophils (%) (Auto) 63% (31-73) Lymphocytes (%) (Auto) 29% (24-48) Monocytes (%) (Auto) 6% (0-9) Eosinophils (%) (Auto) 2% (0-3) Basophils (%) (Auto) 0% (0-3) Neutrophils # (Auto) 5.2x10^3uL (1.8-7.7) Lymphocytes # (Auto) 2.4x10^3/uL (1.0-4.8) Monocytes # (Auto) 0.5x10^3/uL (0.0-1.1) Eosinophils # (Auto) 0.2x10^3/uL (0.0-0.7) Basophils # (Auto) 0.0x10^3/uL (0.0-0.2) Sodium Level 145mmol/L (136-145) Potassium Level 3.8mmol/L (3.5-5.1) Chloride Level 108mmol/L (98-107) Carbon Dioxide Level 31mmol/L (21-32) Anion Gap 6 (6-14) Blood Urea Nitrogen 13mg/dL (7-20) Creatinine 0.9mg/dL (0.6-1.0) Estimated GFR (Cockcroft-Gault) 75.3 Glucose Level 88mg/dL (70-99) Calcium Level 9.3mg/dL (8.5-10.1) Micro BLOOD CULTURE Preliminary NO GROWTH AFTER 2 DAY Objective Assessment Fever. better Chills better Lumbar spinal stenosis at L4-L5 bilateral with right footdrop. -s/p bilateral hemilaminectomies with microdecompression of dura and nerve root , 08/14. Wound is very clean. CT chest neg Leukocytosis, ? post-op. resolved Constipation. + BM HTN CKD COPD Plan Plan of Care Cont meropenem wean soon F/u labs and cults Attending Co-Sign Attending Co-Sign The patient was seen and interviewed as well as examined at the bedside. The chart was reviewed. The case was discussed. Agree with the plan of care. HIEU BLAND MAJOR LEAGUE BASEBALL PLAYER Aug 18, 2016 10:12 YESIKA ARANA MD Aug 18, 2016 13:07
--- NOTE | 2016-08-18 10:18 | PDOC ---
IM PROGRESS NOTES- Subjective Subjective Feeling better. Objective Vitals Vital Signs Date Time Temp Pulse Resp B/P Pulse Ox O2 Delivery O2 Flow Rate FiO2 08/18/16 08:24 92 115/74 08/18/16 08:24 95 Room Air 2.0 08/18/16 07:00 98.6 20 98.6 Input & Output Intake and Output 08/18/16 07:00 Intake Total 1100 ml Balance 1100 ml Intake Oral 1100 ml # Voids 3 # Bowel Movements 1 Physical Exam Physical Exam General appearance - alert,in NAD Head - normal Chest - clear to auscultation, no wheezes, rales or rhonchi, symmetric air entry Heart - S1 and S2 normal Abdomen - soft, nontender, nondistended, no masses or organomegaly Neurological - no acute focal neurological deficit noted, continued pain LS surgical with R leg pain continued Musculoskeletal - no muscular tenderness noted Extremities - no pedal edema Skin - warm and dry Labs Laboratory Tests Test 08/17/16 04:10 08/17/16 11:20 08/18/16 05:04 White Blood Count 10.6x10^3/uL (4.0-11.0) 8.2x10^3/uL (4.0-11.0) Red Blood Count 3.10x10^6/uL (3.50-5.40) 3.04x10^6/uL (3.50-5.40) Hemoglobin 10.8g/dL (12.0-15.5) 10.5g/dL (12.0-15.5) Hematocrit 32.0% (36.0-47.0) 31.0% (36.0-47.0) Mean Corpuscular Volume 103fL (79-100) 102fL (79-100) Mean Corpuscular Hemoglobin 35pg (25-35) 35pg (25-35) Mean Corpuscular Hemoglobin Concent 34g/dL (31-37) 34g/dL (31-37) Red Cell Distribution Width 15.5% (11.5-14.5) 15.2% (11.5-14.5) Platelet Count 141x10^3/uL (140-400) 143x10^3/uL (140-400) Neutrophils (%) (Auto) 67% (31-73) 63% (31-73) Lymphocytes (%) (Auto) 23% (24-48) 29% (24-48) Monocytes (%) (Auto) 10% (0-9) 6% (0-9) Eosinophils (%) (Auto) 1% (0-3) 2% (0-3) Basophils (%) (Auto) 0% (0-3) 0% (0-3) Neutrophils # (Auto) 7.1x10^3uL (1.8-7.7) 5.2x10^3uL (1.8-7.7) Lymphocytes # (Auto) 2.4x10^3/uL (1.0-4.8) 2.4x10^3/uL (1.0-4.8) Monocytes # (Auto) 1.0x10^3/uL (0.0-1.1) 0.5x10^3/uL (0.0-1.1) Eosinophils # (Auto) 0.1x10^3/uL (0.0-0.7) 0.2x10^3/uL (0.0-0.7) Basophils # (Auto) 0.0x10^3/uL (0.0-0.2) 0.0x10^3/uL (0.0-0.2) Sodium Level 143mmol/L (136-145) 145mmol/L (136-145) Potassium Level 3.8mmol/L (3.5-5.1) 3.8mmol/L (3.5-5.1) Chloride Level 108mmol/L (98-107) 108mmol/L (98-107) Carbon Dioxide Level 27mmol/L (21-32) 31mmol/L (21-32) Anion Gap 8 (6-14) 6 (6-14) Blood Urea Nitrogen 10mg/dL (7-20) 13mg/dL (7-20) Creatinine 0.7mg/dL (0.6-1.0) 0.9mg/dL (0.6-1.0) Estimated GFR (Cockcroft-Gault) 100.7 75.3 BUN/Creatinine Ratio 14 (6-20) Glucose Level 97mg/dL (70-99) 88mg/dL (70-99) Calcium Level 9.3mg/dL (8.5-10.1) 9.3mg/dL (8.5-10.1) Total Bilirubin 0.8mg/dL (0.2-1.0) Aspartate Amino Transf (AST/SGOT) 24U/L (15-37) Alanine Aminotransferase (ALT/SGPT) 27U/L (14-59) Alkaline Phosphatase 83U/L (46-116) Total Protein 6.2g/dL (6.4-8.2) Albumin 2.5g/dL (3.4-5.0) Albumin/Globulin Ratio 0.7 (1.0-1.7) Vancomycin Level Trough 2.8mcg/mL (10.0-20.0) Vancomycin Last Dose Date 08/16/16 Vancomycin Last Dose Time 1200 Laboratory Tests Test 08/17/16 11:20 08/18/16 05:04 Vancomycin Level Trough 2.8mcg/mL (10.0-20.0) Vancomycin Last Dose Date 08/16/16 Vancomycin Last Dose Time 1200 White Blood Count 8.2x10^3/uL (4.0-11.0) Red Blood Count 3.04x10^6/uL (3.50-5.40) Hemoglobin 10.5g/dL (12.0-15.5) Hematocrit 31.0% (36.0-47.0) Mean Corpuscular Volume 102fL (79-100) Mean Corpuscular Hemoglobin 35pg (25-35) Mean Corpuscular Hemoglobin Concent 34g/dL (31-37) Red Cell Distribution Width 15.2% (11.5-14.5) Platelet Count 143x10^3/uL (140-400) Neutrophils (%) (Auto) 63% (31-73) Lymphocytes (%) (Auto) 29% (24-48) Monocytes (%) (Auto) 6% (0-9) Eosinophils (%) (Auto) 2% (0-3) Basophils (%) (Auto) 0% (0-3) Neutrophils # (Auto) 5.2x10^3uL (1.8-7.7) Lymphocytes # (Auto) 2.4x10^3/uL (1.0-4.8) Monocytes # (Auto) 0.5x10^3/uL (0.0-1.1) Eosinophils # (Auto) 0.2x10^3/uL (0.0-0.7) Basophils # (Auto) 0.0x10^3/uL (0.0-0.2) Sodium Level 145mmol/L (136-145) Potassium Level 3.8mmol/L (3.5-5.1) Chloride Level 108mmol/L (98-107) Carbon Dioxide Level 31mmol/L (21-32) Anion Gap 6 (6-14) Blood Urea Nitrogen 13mg/dL (7-20) Creatinine 0.9mg/dL (0.6-1.0) Estimated GFR (Cockcroft-Gault) 75.3 Glucose Level 88mg/dL (70-99) Calcium Level 9.3mg/dL (8.5-10.1) Meds Current Medications Amlodipine Besylate (Norvasc) 10 mg DAILY PO Last administered on 08/18/16 08: 24; Start 08/18/16 at 09:00 Gabapentin (Neurontin) 300 mg TID PO Last administered on 08/18/16 08:24; Start 08/17/16 at 14:00 Lorazepam (Ativan) 0.5 mg PRN Q6HRS PRN PO ANXIETY / AGITATION Last administered on 08/17/16 21:37; Start 08/17/16 at 13:30 Morphine Sulfate 15 mg 15 mg BID PO Last administered on 08/18/16 08:24; Start 08/17/16 at 12:30 Vancomycin HCl 1 each 1X ONCE MC Last administered on 08/17/16 11:30; Start at 11:30; Stop 08/17/16 at 11:31; Status DC Vancomycin HCl/ Sodium Chloride (Iv Sodium Chloride 0.9% 250ml) 250 ml @ 250 mls/hr Q12H IV Last administered on 08/17/16 13:16; Start 08/17/16 at 13:00; Stop 08/17/16 at 14:59; Status DC Assessment Assessment 1. Severe spinal stenosis with DDD mainly involving L4-L5 and L5-S1 with radiculopathy R >L s/p Bilateral hemilaminectomies with microdecompression of dura and nerve root. 2. tendinits sprain R foot drop r/t #1 3. HTN 4. +cocaine per urine drug screen 5. 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 hypokalemia 7. COPD 8. + heart murmur 9. bilateral trochanteric bursitis PLAN: back pain with radiculopathy neurosurgeon consult surgery today 08/14 s/p surgery POD 2 Pain not controlled HTN continue home med Heart murmur check ECHO: diastolic EF normal mild MR. d/w Vikki-at mod risk with co morbidities: anesthesia to determine if proceed with surgery: anesthesia eval ECHO and surgery to be done. COPD nebulizer prn O2 prn maintain Sat >90% hypokalemia stat BMP pending-surgery at 1230-not done Admit K 3.1 08/06 3.6 Na 144 144 leukocytosis/anemia Admit WBC 7.0 08/15 11.9 Hgb 12.1 10.8 leukocytosis - improving. + urine drug screen cocaine d/w Asya ?withdrawl symptoms r/t cocaine contributing to pain levels? DVT/GI prophylaxis SCD/TARIQ PPI mild azotemia secondary dehydration, not ARF or BRETT Admit Na 144 08/16 144 BUN 21 12 Cr 1.2 0.7 Pain control improving. +urine drug screen -cocaine Post op: off IV Fentanyl. on MS contin. hydrocodone/acet 10/325 q 6hr prn Plan SNU at discharge. Fever- ? atelectasis,? hematoma- improving. continue IV Meropenem. Plan Plan For more details regarding further plans, please refer to the orders. MILLY FERRERA MD Aug 18, 2016 10:18
[2016-08-18 11:00] VITALS: BP 119/72
--- NOTE | 2016-08-18 12:40 | PDOC ---
SUBJECTIVE Subjective Reports improvement of right leg pain. Some persistent right leg numbness stable. Reports right ankle strength improving. Denies acute complaints otherwise. OBJECTIVE Vital Signs Vital Signs Date Time Temp Pulse Resp B/P Pulse Ox O2 Delivery O2 Flow Rate FiO2 08/18/16 08:24 92 115/74 08/18/16 08:24 95 Room Air 2.0 08/18/16 08:00 Room Air 08/18/16 07:14 95 Room Air 2.0 08/18/16 07:00 98.6 92 20 115/74 97 Room Air 98.6 08/18/16 05:53 Room Air 08/18/16 02:38 98.5 71 18 114/73 95 Room Air 98.5 08/18/16 01:00 Room Air 08/17/16 22:41 98.6 78 18 137/88 96 Room Air 98.6 08/17/16 21:04 Room Air 08/17/16 20:10 Room Air 08/17/16 19:00 99.0 76 18 121/83 96 Room Air 99.0 08/17/16 15:00 99.0 100 18 114/80 96 Room Air 99.0 I & O Intake and Output 08/18/16 06:59 Intake Total 1100 ml Balance 1100 ml Intake Oral 1100 ml # Voids 3 # Bowel Movements 1 PHYSICAL EXAM Physical Exam AAOx4, NAD, PETERSON with left 3-4/5 DF PF, incision c/d/i ASSESSMENT/PLAN Assessment/Plan s/p L4-5 decompression -continues to improve -continue therapies -normocytic, abx per ID -d/c to appropriate venue when otherwise meets criteria Problems: COMMENT Lab Laboratory Tests Test 08/18/16 05:04 White Blood Count 8.2x10^3/uL (4.0-11.0) Red Blood Count 3.04x10^6/uL (3.50-5.40) Hemoglobin 10.5g/dL (12.0-15.5) Hematocrit 31.0% (36.0-47.0) Mean Corpuscular Volume 102fL (79-100) Mean Corpuscular Hemoglobin 35pg (25-35) Mean Corpuscular Hemoglobin Concent 34g/dL (31-37) Red Cell Distribution Width 15.2% (11.5-14.5) Platelet Count 143x10^3/uL (140-400) Neutrophils (%) (Auto) 63% (31-73) Lymphocytes (%) (Auto) 29% (24-48) Monocytes (%) (Auto) 6% (0-9) Eosinophils (%) (Auto) 2% (0-3) Basophils (%) (Auto) 0% (0-3) Neutrophils # (Auto) 5.2x10^3uL (1.8-7.7) Lymphocytes # (Auto) 2.4x10^3/uL (1.0-4.8) Monocytes # (Auto) 0.5x10^3/uL (0.0-1.1) Eosinophils # (Auto) 0.2x10^3/uL (0.0-0.7) Basophils # (Auto) 0.0x10^3/uL (0.0-0.2) Sodium Level 145mmol/L (136-145) Potassium Level 3.8mmol/L (3.5-5.1) Chloride Level 108mmol/L (98-107) Carbon Dioxide Level 31mmol/L (21-32) Anion Gap 6 (6-14) Blood Urea Nitrogen 13mg/dL (7-20) Creatinine 0.9mg/dL (0.6-1.0) Estimated GFR (Cockcroft-Gault) 75.3 Glucose Level 88mg/dL (70-99) Calcium Level 9.3mg/dL (8.5-10.1) ANGELES RICE MD Aug 18, 2016 12:40
[2016-08-18 15:00] VITALS: BP 124/50
[2016-08-18 19:50] VITALS: BP 95/61
[2016-08-18 23:21] VITALS: BP 124/85
[2016-08-19 03:00] VITALS: BP 121/64
[2016-08-19 03:53] LABS: BASO % 1 % (0-3); EOS % 1 % (0-3); HEMATOCRIT 28.8 % (36.0-47.0); HEMOGLOBIN 9.5 g/dL (12.0-15.5); LYMPH # 2.3 x10^3/uL (1.0-4.8); LYMPH % 29 % (24-48); MEAN CORPUSCULAR HEMOGLOBIN 34 pg (25-35); MEAN CORPUSCULAR HGB CONC 33 g/dL (31-37); MEAN CORPUSCULAR VOLUME 103 fL (79-100); MONO % 7 % (0-9); NEUT % 62 % (31-73); PLATELET COUNT 152 x10^3/uL (140-400); RED BLOOD COUNT 2.79 x10^6/uL (3.50-5.40); RED CELL DISTRIBUTION WIDTH 15.1 % (11.5-14.5)
[2016-08-19] MEDS: HYDROCODONE/APAP 10/325 TABLET. PO PRN (04:17)
[2016-08-19] MEDS: MEROPENEM 500 MG in IV NORMAL SALINE 50ML 50 ML IV SCH (05:44)
[2016-08-19] MEDS: PANTOPRAZOLE 40 MG TABLET.DR. PO SCH (05:45)
[2016-08-19 07:00] VITALS: BP 116/79
--- NOTE | 2016-08-19 08:23 | PDOC3 ---
[facility] 08/19/16 0823: DISCHARGE & PROGRESS NOTES Date of Admission Date of Admission Date of Admission: Aug 13, 2016 at 13:53 Date of Discharge Date of Discharge 08/19/16 Primary Diagnosis Primary Diagnosis Assessment 1. Severe spinal stenosis with DDD mainly involving L4-L5 and L5-S1 with radiculopathy R >L/ S/P Bilateral hemilaminectomies with microdecompression of dura and nerve root 08/14/16 2. tendinits sprain R foot drop r/t #1 3. HTN 4. +cocaine per urine drug screen 5. 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 hypokalemia 7. COPD 8. + heart murmur 9. bilateral trochanteric bursitis 10. severe PCL malnutritions Consults Consults Junior Taveras MD, Dr., Dr. Procedures Procedures DATE OF SURGERY: 08/14/2016 PREOPERATIVE DIAGNOSIS: Lumbar spinal stenosis at L4-L5 bilateral with right footdrop. POSTOPERATIVE DIAGNOSIS: Lumbar spinal stenosis at L4-L5 bilateral with right footdrop. OPERATION PERFORMED: Bilateral hemilaminotomies with microdecompression of dura and nerve root. The operation was done with EMG monitoring, fluoroscopy, and microscopic dissection. SURGEON: Mich Agarwal M.D. ADULT PROTECTIVE CASEWORKER: Mukul Arce MD, assisted with surgery, assisted with the exposure, microdecompression bilaterally as well as the closure. OPERATIVE INDICATIONS: The patient is a very pleasant 66-year-old woman who developed problems with a right footdrop which became severe. She was admitted and evaluated. On imaging studies, there was severe lumbar spinal stenosis at L4-L5. I spoke with her about the surgery and the risks involved. She wished to go ahead. She understood that she may not get any recovery of her weakness and dorsiflexion of her right foot but that the surgery was done primarily to prevent any further worsening and to help decompress the nerve roots in her spine. DESCRIPTION OF PROCEDURE: Following general endotracheal anesthesia, the patient was positioned prone on the Acromed spine board. Her lumbar region was prepped and draped in standard fashion. TARIQ hose and AV impulse boots were applied for DVT prophylaxis. A microscope was draped. Fluoroscopy was draped and brought into field. Monitoring was established. Vancomycin 1 gram was given. Using fluoroscopic guidance, incision was made over the L4-L5 interspace. I dissected down through the skin and subcutaneous tissue and reflected the paraspinal muscles toward the right side and placed a Alexander micro disk retractor, brought in the microscope, and the remainder of surgery was done with the microscope using microscopic technique. Using the high-speed air drill, I burred down a generous hemilaminotomy. I then grasped and peeled down very thickened ligamentum flavum and peeled this back off of the dura. I did drill down and perform a partial foraminotomy. I trimmed a very thickened ligament away and exposed the dura. I worked undercutting through the midline, and on the right side, I gently retracted the dura medially. There was bulging disc, which was heavily calcified. No discectomy was warranted. The region was very well decompressed. The dura was pulsatile, looked quite good. Hemostasis was maintained with both bipolar cautery as well as bone wax. I irrigated it copiously, and I made an incision in the contralateral lumbodorsal fascia and switched the retractor to the contralateral side, and I performed the identical operation on the left side. The disc was focally bulging but again very heavily calcified. There was no soft disc. I did not feel a discectomy was warranted. I did coagulate a few epidural veins. I used bone wax for any bone bleeding. I irrigated and placed Gelfoam over the exposed hemilaminotomy exposure. Again, the dura was pulsatile. Hemostasis was excellent. I irrigated it copiously, removed the retractor, obtained hemostasis in the muscle, and I closed the wound in layers with absorbable suture, and the skin was closed with a 4-0 subcuticular stitch. The operation went very well, and the patient was taken to Recovery Room in excellent condition. I was quite pleased with the surgery. MICH AGARWAL MD DR: ROCHELLE/melissa JOB#: [id number] / [id number] DICTATED BY: MICH AGARWAL MD 08/14/16 1321 SIGNED BY: MICH AGARWAL MD 08/15/16 [id number] APPROVED REPORT EXAM: Two-dimensional and M-mode echocardiogram with Doppler and color Doppler. Other Information Quality : Average Rhythm : NSR INDICATION Murmur 2D DIMENSIONS RVDd 3.2 (2.9-3.5cm) Left Atrium(2D) 3.0 (1.6-4.0cm) IVSd 1.2 (0.7-1.1cm) Aortic Root(2D) 3.1 (2.0-3.7cm) LVDd 3.8 (3.9-5.9cm) LVOT Diameter 2.1 (1.8-2.4cm) PWd 1.2 (0.7-1.1cm) LVDs 2.5 (2.5-4.0cm) FS (%) 33.4 % SV 39.0 ml LVEF(%) 62.8 (>50%) Aortic Valve AoV Peak Papo. 120.1cm/s AoV VTI 21.4cm AO Peak GR. 5.8mmHg LVOT VTI 19.87cm AO Mean GR. 3mmHg PRIMITIVO (VTI) 3.18cm2 Mitral Valve MV E Velocity 79.6cm/s MV E Peak Gr. 3mmHg MV DECEL TIME 280ms MV A Velocity 94.1cm/s MV PHT 68ms E/A Ratio 0.8 MV A Duration 116ms MVA (PHT) 3.24cm2 TDI Lateral E' P. V 6.71cm/s Medial E' P. V 4.84cm/s E/Lateral E' 11.9 E/Medial E' 16.4 Tricuspid Valve TR P. Velocity 206cm/s RAP ESTIMATE 3mmHg TR Peak Gr. 17mmHg RVSP 20mmHg Pulmonary Vein S1 Velocity 58.1cm/s S2 Velocity 46.82cm/s D2 Velocity 46.8cm/s PVa duration 92msec LEFT VENTRICLE The left ventricle is normal size. There is borderline concentric left ventricular hypertrophy. Left ventricle systolic function is normal. The Ejection Fraction is 60-65%. There is normal LV segmental wall motion. The left ventricular diastolic function and filling is normal for age. RIGHT VENTRICLE The right ventricle is normal size. The right ventricular systolic function is normal. ATRIA The left atrium size is normal. The right atrium size is normal. The interatrial septum is intact with no evidence for an atrial septal defect or patent foramen ovale as noted on 2-D or Doppler imaging. AORTIC VALVE The aortic valve is normal in structure and function. The aortic valve is trileaflet. Doppler and Color Flow revealed no significant aortic regurgitation. There is no significant aortic valvular stenosis. MITRAL VALVE The mitral valve leaflets are thickened. There is no mitral valve stenosis. Doppler and Color Flow revealed trace mitral regurgitation. TRICUSPID VALVE The tricuspid valve is normal in structure and function. Doppler and Color Flow revealed mild tricuspid regurgitation. The PA pressure was estimated at 20 mmHg. There is no tricuspid valve stenosis. PULMONIC VALVE The pulmonic valve is not well visualized. Doppler and Color Flow revealed no pulmonic valvular regurgitation. There is no pulmonic valvular stenosis. GREAT VESSELS The aortic root is normal in size. Normal pulmonary venous flow (Doppler). The IVC is normal in size and collapses >50% with inspiration. PERICARDIAL EFFUSION There is no evidence of significant pericardial effusion. Critical Notification Critical Value: No <Conclusion> The left ventricle is normal size. Left ventricle systolic function is normal. The Ejection Fraction is 60-65%. There is borderline concentric left ventricular hypertrophy. There is no significant aortic valvular stenosis. Doppler and Color Flow revealed no significant aortic regurgitation. Doppler and Color Flow revealed trace mitral regurgitation. Doppler and Color Flow revealed mild tricuspid regurgitation. The PA pressure was estimated at 20 mmHg. DICTATED and SIGNED BY: PB WEN MD DATE: 08/14/16 4392 Labs Labs Laboratory Tests Test 08/17/16 04:10 08/17/16 11:20 08/18/16 05:04 08/19/16 03:16 White Blood Count 10.6x10^3/uL (4.0-11.0) 8.2x10^3/uL (4.0-11.0) 8.0x10^3/uL (4.0-11.0) Red Blood Count 3.10x10^6/uL (3.50-5.40) 3.04x10^6/uL (3.50-5.40) 2.79x10^6/uL (3.50-5.40) Hemoglobin 10.8g/dL (12.0-15.5) 10.5g/dL (12.0-15.5) 9.5g/dL (12.0-15.5) Hematocrit 32.0% (36.0-47.0) 31.0% (36.0-47.0) 28.8% (36.0-47.0) Mean Corpuscular Volume 103fL (79-100) 102fL (79-100) 103fL (79-100) Mean Corpuscular Hemoglobin 35pg (25-35) 35pg (25-35) 34pg (25-35) Mean Corpuscular Hemoglobin Concent 34g/dL (31-37) 34g/dL (31-37) 33g/dL (31-37) Red Cell Distribution Width 15.5% (11.5-14.5) 15.2% (11.5-14.5) 15.1% (11.5-14.5) Platelet Count 141x10^3/uL (140-400) 143x10^3/uL (140-400) 152x10^3/uL (140-400) Neutrophils (%) (Auto) 67% (31-73) 63% (31-73) 62% (31-73) Lymphocytes (%) (Auto) 23% (24-48) 29% (24-48) 29% (24-48) Monocytes (%) (Auto) 10% (0-9) 6% (0-9) 7% (0-9) Eosinophils (%) (Auto) 1% (0-3) 2% (0-3) 1% (0-3) Basophils (%) (Auto) 0% (0-3) 0% (0-3) 1% (0-3) Neutrophils # (Auto) 7.1x10^3uL (1.8-7.7) 5.2x10^3uL (1.8-7.7) 4.9x10^3uL (1.8-7.7) Lymphocytes # (Auto) 2.4x10^3/uL (1.0-4.8) 2.4x10^3/uL (1.0-4.8) 2.3x10^3/uL (1.0-4.8) Monocytes # (Auto) 1.0x10^3/uL (0.0-1.1) 0.5x10^3/uL (0.0-1.1) 0.6x10^3/uL (0.0-1.1) Eosinophils # (Auto) 0.1x10^3/uL (0.0-0.7) 0.2x10^3/uL (0.0-0.7) 0.1x10^3/uL (0.0-0.7) Basophils # (Auto) 0.0x10^3/uL (0.0-0.2) 0.0x10^3/uL (0.0-0.2) 0.0x10^3/uL (0.0-0.2) Sodium Level 143mmol/L (136-145) 145mmol/L (136-145) Potassium Level 3.8mmol/L (3.5-5.1) 3.8mmol/L (3.5-5.1) Chloride Level 108mmol/L (98-107) 108mmol/L (98-107) Carbon Dioxide Level 27mmol/L (21-32) 31mmol/L (21-32) Anion Gap 8 (6-14) 6 (6-14) Blood Urea Nitrogen 10mg/dL (7-20) 13mg/dL (7-20) Creatinine 0.7mg/dL (0.6-1.0) 0.9mg/dL (0.6-1.0) Estimated GFR (Cockcroft-Gault) 100.7 75.3 BUN/Creatinine Ratio 14 (6-20) Glucose Level 97mg/dL (70-99) 88mg/dL (70-99) Calcium Level 9.3mg/dL (8.5-10.1) 9.3mg/dL (8.5-10.1) Total Bilirubin 0.8mg/dL (0.2-1.0) Aspartate Amino Transf (AST/SGOT) 24U/L (15-37) Alanine Aminotransferase (ALT/SGPT) 27U/L (14-59) Alkaline Phosphatase 83U/L (46-116) Total Protein 6.2g/dL (6.4-8.2) Albumin 2.5g/dL (3.4-5.0) Albumin/Globulin Ratio 0.7 (1.0-1.7) Vancomycin Level Trough 2.8mcg/mL (10.0-20.0) Vancomycin Last Dose Date 08/16/16 Vancomycin Last Dose Time 1200 Medications Medications Medications reviewed and reconciled for discharge. Brief hospital course Brief hospital course This 66 year old female who presented with back, RLE radiculopathy and R foot drop. back pain with radiculopathy neurosurgeon consult surgery today 08/14 s/p surgery POD 2 Pain not controlled Pain improved control: MS Contin and hydrocodone 10/325 HTN continue home med Heart murmur check ECHO: diastolic EF normal mild MR. d/w Vikki-at mod risk with co morbidities: anesthesia to determine if proceed with surgery: anesthesia eval ECHO and surgery to be done. COPD nebulizer prn O2 prn maintain Sat >90% 04/03-Sat 95-96% RA hypokalemia stat BMP pending-surgery at 1230-not done Admit K 3.1 04/03 3.8 Na 144 145 leukocytosis/anemia Admit WBC 7.0 04/03 8.0 Hgb 12.1 9.5 leukocytosis - improving Fever ID consult Meropenem IV .-?atelectasis, hematoma + urine drug screen cocaine d/w Asya ?withdrawl symptoms r/t cocaine contributing to pain levels? DVT/GI prophylaxis SCD/TARIQ PPI mild azotemia secondary dehydration, not ARF or BRETT Admit Na 144 04/03 145 BUN 21 13 Cr 1.2 0.9 Pain control improving. +urine drug screen -cocaine Post op: off IV Fentanyl. on MS contin. hydrocodone/acet 10/325 q 6hr prn RUL nodule -incidental finding CT chest w/o f/u out patient For more details regarding the past history, family history, social history, surgical history and other details, please refer to History and Physical. Asya will be discharged Home with HHN PT OT and ongoing management. Insurance denied SNU. Please see discharge orders. Subjective Feeling better. Objective no distress Vitals Vital Signs Date Time Temp Pulse Resp B/P Pulse Ox O2 Delivery O2 Flow Rate FiO2 08/19/16 07:00 97.8 69 18 116/79 95 Room Air 97.8 08/18/16 14:33 2.0 Physical Exam General appearance - alert,in NAD Head - normal Chest - clear to auscultation, no wheezes, rales or rhonchi, symmetric air entry Heart - S1 and S2 normal Abdomen - soft, nontender, nondistended, no masses or organomegaly Neurological - no acute focal neurological deficit noted, continued pain LS surgical with R leg pain continued Musculoskeletal - no muscular tenderness noted Extremities - no pedal edema Skin - warm and dry Medications Medications reviewed. Allergy Allergies Coded Allergies Type Severity Reaction Last Updated Verified Penicillins Allergy Intermediate 08/14/[address] Merritt on Friday Disposition: Home health services, [facility] facility Comments Discharge Management - 35 minutes. For other details please refer to discharge instructions MILLY MERRITT MD 08/19/16 0943: IM DISCHARGE & PROGRESS NOTES Brief hospital course Comments D/w patient- avoid all illicit drugs. Discharge home with [facility]. See in office in 3 days. The patient was seen and examined by me. Chart reviewed and plan of care formulated. Discussed with, reviewed and agree with PRISM INSPECTOR's notes, plan of care and orders with modifications as necessary. Discharge Management - 35 minutes. [facility] APRN Aug 19, 2016 08:23 MILLY MERRITT MD Aug 19, 2016 09:43
--- NOTE | 2016-08-19 08:38 | DISCH ---
DISCHARGE WITH HOME HEALTH DISCHARGE INFORMATION: Discharge Date: Aug 19, 2016 Final Diagnosis: Problems Medical Problems: (1) Acute exacerbation of chronic low back pain Status: Acute Condition on Discharge: Stable HOME HEALTH: Face to Face: I certify this patient is under my care and that I, or a nurse practitioner working with me, had a face to face encounter that meets the physician face to face encounter requirements with this patient on 08/19/16. Medical Condition(s): Other (Back surgery ) Group Home For: Assess/Skilled Observatio Physical Therapy For: Evalulation/Treatment Occupational Therapy For: Evaluation/Treatment Patient meets Homebound Statu: Other: (Post op back surgery with wound care per Dr. Vanegas ) FOLLOW-UP: Follow up with: Dr. Laurent Merritt on Friday this week Follow Up With: Dr. Vanegas per his instruction CERTIFICATION STATEMENT: Certification Statement: Certification Statement: Based on the above finding, I certify that this patient is confined to the home and needs intermittent long-term care, physical therapy and/or speech therapy, or continues to need occupational therapy.~ This patient is under my care, and I have initiated the establishment of the plan of care.~ This patient will be followed by myself or a community physician who will periodically review the plan of care. WO[facility]ROW MISTRY APRN Aug 19, 2016 08:38
[2016-08-19 09:01] VITALS: BP 116/79
[2016-08-19] MEDS: GABAPENTIN 300 MG CAPSULE. PO SCH (09:01)
[2016-08-19] MEDS: BISACODYL 5 MG TABLET.DR. PO SCH (09:01)
[2016-08-19] MEDS: SENNOSIDES/DOCUSATE 8.6/50MG TABLET. PO SCH (09:01)
[2016-08-19] MEDS: AMLODIPINE BESYLATE 10 MG TABLET. PO SCH (09:01)
[2016-08-19] MEDS: MORPHINE ER 15 MG TABLET.ER PO SCH (09:02)
[2016-08-19] MEDS: LIDOCAINE (700MG/PATCH) PATCH. TD SCH (09:02)
--- NOTE | 2016-08-19 10:35 | PDOC ---
Infectious Disease Note Subjective Subjective Feeling better this morning. Eating well and moving around better No fever last 24 hours Pain better controlled + BM ROS ROS GEN: Denies fevers, chills, sweats HEENT: Denies blurred vision, sore throat CV: Denies chest pain RESP: Denies shortness of air, cough GI: Denies n/v/d NEURO: Denies confusion, dizziness MSK: Denies weakness, joint pain/swelling Vital Sign Vital Signs Vital Signs Date Time Temp Pulse Resp B/P Pulse Ox O2 Delivery O2 Flow Rate FiO2 08/19/16 09:02 18 Room Air 08/19/16 09:01 69 116/79 08/19/16 07:00 97.8 95 97.8 08/18/16 14:33 2.0 Physical Exam PHYSICAL EXAM GENERAL: NAD, Alert, in chair NECK: Supple, no JVD, no LN LUNGS: Clear HEART: S1S2, no gallop, no murmur ABD: Soft, NT, no organomegaly, no rebound Brace in place EXT: No edema, no cyanosis [employer]: Alert, oriented x 3, no focal neurologic deficit SKIN: No rash IV: ok Labs Lab Laboratory Tests Test 08/19/16 03:16 White Blood Count 8.0x10^3/uL (4.0-11.0) Red Blood Count 2.79x10^6/uL (3.50-5.40) Hemoglobin 9.5g/dL (12.0-15.5) Hematocrit 28.8% (36.0-47.0) Mean Corpuscular Volume 103fL (79-100) Mean Corpuscular Hemoglobin 34pg (25-35) Mean Corpuscular Hemoglobin Concent 33g/dL (31-37) Red Cell Distribution Width 15.1% (11.5-14.5) Platelet Count 152x10^3/uL (140-400) Neutrophils (%) (Auto) 62% (31-73) Lymphocytes (%) (Auto) 29% (24-48) Monocytes (%) (Auto) 7% (0-9) Eosinophils (%) (Auto) 1% (0-3) Basophils (%) (Auto) 1% (0-3) Neutrophils # (Auto) 4.9x10^3uL (1.8-7.7) Lymphocytes # (Auto) 2.3x10^3/uL (1.0-4.8) Monocytes # (Auto) 0.6x10^3/uL (0.0-1.1) Eosinophils # (Auto) 0.1x10^3/uL (0.0-0.7) Basophils # (Auto) 0.0x10^3/uL (0.0-0.2) Objective Assessment Fever - better ? reactive Chills Lumbar spinal stenosis at L4-L5 bilateral with right footdrop.improving -s/p bilateral hemilaminectomies with microdecompression of dura and nerve root , 08/14. Wound is very clean. CT chest neg Leukocytosis, improved ? post op Constipation HTN CKD COPD Plan Plan of Care Discont meropenem - ok to d/c YESIKA ARANA MD Aug 19, 2016 10:35
--- NOTE | 2016-08-19 18:28 | PDOC ---
PROGRESS NOTES Subjective Subjective She admits better pain control with MsContin. Objective Objective Vital Signs Date Time Temp Pulse Resp B/P Pulse Ox O2 Delivery O2 Flow Rate FiO2 08/19/16 09:02 18 Room Air 08/19/16 09:01 69 116/79 08/19/16 07:00 97.8 95 97.8 08/18/16 14:33 2.0 Intake and Output 08/19/16 07:00 Intake Total 450 ml Balance 450 ml Intake Oral 450 ml # Voids 6 Physical Exam Physical Exam I saw her walking with roller walker and right AFO,lumbar corset and roller walker with physical therapy. Assessment Assessment Problems Medical Problems: (1) Acute exacerbation of chronic low back pain Status: Acute Plan Plan of Alf with home health or SNF transfer when medically stable. Comment Review of Relevant I have reviewed the following items dakota (where applicable) has been applied. Labs Laboratory Tests Test 08/18/16 05:04 08/19/16 03:16 White Blood Count 8.2x10^3/uL (4.0-11.0) 8.0x10^3/uL (4.0-11.0) Red Blood Count 3.04x10^6/uL (3.50-5.40) 2.79x10^6/uL (3.50-5.40) Hemoglobin 10.5g/dL (12.0-15.5) 9.5g/dL (12.0-15.5) Hematocrit 31.0% (36.0-47.0) 28.8% (36.0-47.0) Mean Corpuscular Volume 102fL (79-100) 103fL (79-100) Mean Corpuscular Hemoglobin 35pg (25-35) 34pg (25-35) Mean Corpuscular Hemoglobin Concent 34g/dL (31-37) 33g/dL (31-37) Red Cell Distribution Width 15.2% (11.5-14.5) 15.1% (11.5-14.5) Platelet Count 143x10^3/uL (140-400) 152x10^3/uL (140-400) Neutrophils (%) (Auto) 63% (31-73) 62% (31-73) Lymphocytes (%) (Auto) 29% (24-48) 29% (24-48) Monocytes (%) (Auto) 6% (0-9) 7% (0-9) Eosinophils (%) (Auto) 2% (0-3) 1% (0-3) Basophils (%) (Auto) 0% (0-3) 1% (0-3) Neutrophils # (Auto) 5.2x10^3uL (1.8-7.7) 4.9x10^3uL (1.8-7.7) Lymphocytes # (Auto) 2.4x10^3/uL (1.0-4.8) 2.3x10^3/uL (1.0-4.8) Monocytes # (Auto) 0.5x10^3/uL (0.0-1.1) 0.6x10^3/uL (0.0-1.1) Eosinophils # (Auto) 0.2x10^3/uL (0.0-0.7) 0.1x10^3/uL (0.0-0.7) Basophils # (Auto) 0.0x10^3/uL (0.0-0.2) 0.0x10^3/uL (0.0-0.2) Sodium Level 145mmol/L (136-145) Potassium Level 3.8mmol/L (3.5-5.1) Chloride Level 108mmol/L (98-107) Carbon Dioxide Level 31mmol/L (21-32) Anion Gap 6 (6-14) Blood Urea Nitrogen 13mg/dL (7-20) Creatinine 0.9mg/dL (0.6-1.0) Estimated GFR (Cockcroft-Gault) 75.3 Glucose Level 88mg/dL (70-99) Calcium Level 9.3mg/dL (8.5-10.1) Laboratory Tests Test 08/19/16 03:16 White Blood Count 8.0x10^3/uL (4.0-11.0) Red Blood Count 2.79x10^6/uL (3.50-5.40) Hemoglobin 9.5g/dL (12.0-15.5) Hematocrit 28.8% (36.0-47.0) Mean Corpuscular Volume 103fL (79-100) Mean Corpuscular Hemoglobin 34pg (25-35) Mean Corpuscular Hemoglobin Concent 33g/dL (31-37) Red Cell Distribution Width 15.1% (11.5-14.5) Platelet Count 152x10^3/uL (140-400) Neutrophils (%) (Auto) 62% (31-73) Lymphocytes (%) (Auto) 29% (24-48) Monocytes (%) (Auto) 7% (0-9) Eosinophils (%) (Auto) 1% (0-3) Basophils (%) (Auto) 1% (0-3) Neutrophils # (Auto) 4.9x10^3uL (1.8-7.7) Lymphocytes # (Auto) 2.3x10^3/uL (1.0-4.8) Monocytes # (Auto) 0.6x10^3/uL (0.0-1.1) Eosinophils # (Auto) 0.1x10^3/uL (0.0-0.7) Basophils # (Auto) 0.0x10^3/uL (0.0-0.2) Microbiology 08/16/16 Blood Culture - Preliminary, Resulted NO GROWTH AFTER 3 DAYS Medications Current Medications Gabapentin (Neurontin) 300 mg TID PO Last administered on 08/17/16 10:05; Start 08/13/16 at 15:00; Stop 08/17/16 at 13:26; Status DC Acetaminophen/ Hydrocodone Bitart (Lortab 10/325) 1 tab PRN Q6HRS PRN PO PAIN Last administered on 08/15/16 13:38; Start 08/13/16 at 14:30; Stop 08/15/16 at 13:41; Status DC Fentanyl Citrate (Fentanyl 2ml Vial) 50 mcg PRN Q3HRS PRN IV PAIN Last administered on 08/14/16 08:35; Start 08/13/16 at 14:30; Stop 08/15/16 at 05:23 ; Status DC Lidocaine (Lidoderm) 1 patch DAILY TD Last administered on 08/19/16 09:02; Start 08/14/16 at 09:00; Stop 08/19/16 at 15:34; Status DC Fentanyl Citrate (Fentanyl 2ml Vial) 75 mcg PRN Q3HRS PRN IV PAIN Last administered on 08/14/16 10:21; Start 08/13/16 at 14:45; Stop 08/15/16 at 05:23 ; Status DC Acetaminophen (Tylenol) 650 mg PRN Q6HRS PRN PO MILD PAIN Last administered on 08/16/16 03:17; Start 08/13/16 at 16:15; Stop 08/19/16 at 15:34; Status DC Ondansetron HCl (Zofran) 4 mg PRN Q6HRS PRN IV Nausea; Start 08/14/16 at 07:00 ; Stop 08/15/16 at 06:59; Status DC Fentanyl Citrate (Fentanyl 2ml Vial) 25 mcg PRN Q5MIN PRN IV MILD PAIN; Start 08/14/16 at 07:00; Stop 08/15/16 at 06:59; Status DC Fentanyl Citrate (Fentanyl 2ml Vial) 50 mcg PRN Q5MIN PRN IV MODERATE PAIN Last administered on 08/14/16 14:06; Start 08/14/16 at 07:00; Stop 08/15/16 at 06:59; Status DC Morphine Sulfate 1 mg 1 mg PRN Q10MIN PRN IV SEVERE PAIN Last administered on 14:27; Start 08/14/16 at 07:00; Stop 08/15/16 at 06:59; Status DC Lactated Ringer's (Iv Lactated Ringers) 1,000 ml @ 0 mls/hr Q0M IV ; Start at 07:00; Stop 08/14/16 at 18:59; Status DC Lidocaine HCl 2 ml 1X PRN PRN ID IV START; Start 08/14/16 at 07:00; Stop at 06:59; Status DC Hydromorphone HCl (Dilaudid) 0.5 mg PRN Q10MIN PRN IV SEVERE PAIN, Second choice; Start 08/14/16 at 07:00; Stop 08/15/16 at 06:59; Status DC Prochlorperazine Edisylate 5 mg 5 mg PACU PRN PRN IV NAUSEA; Start 08/14/16 at 07:00; Stop 08/15/16 at 06:59; Status DC Bacitracin/Sodium Chloride (Bacitracin/Iv Sodium Chloride 0.9% 1000ml Bag) 1, 000 ml @ 1,000 mls/hr 1X PERIOP ONCE IRR Last administered on 08/14/16 12:12 ; Start 08/14/16 at 06:00; Stop 08/14/16 at 06:59; Status DC Amlodipine Besylate (Norvasc) 10 mg DAILY PO Last administered on 08/17/16 10: 06; Start 08/13/16 at 20:00; Stop 08/17/16 at 13:26; Status DC Clonidine HCl (Catapres) 0.1 mg PRN Q6HRS PRN PO HYPERTENSION, SEE COMMENTS Last administered on 08/13/16 23:44; Start 08/13/16 at 21:15; Stop 08/19/16 at 15:34; Status DC Thrombin 20,000 unit STK-MED ONCE TP Last administered on 08/14/16 12:12; Start 08/14/16 at 06:43; Stop 08/14/16 at 06:44; Status DC Gelatin (Gelfoam Size 100) 1 each STK-MED ONCE .ROUTE Last administered on 12:12; Start 08/14/16 at 06:43; Stop 08/14/16 at 06:44; Status DC Ketorolac Tromethamine (Toradol For Or Only) 60 mg STK-MED ONCE .ROUTE Last administered on 08/14/16 12:12; Start 08/14/16 at 06:43; Stop 08/14/16 at 06:44 ; Status DC Bupivacaine HCl/ Epinephrine Bitart (Sensorcain-Mpf Epi 0.5%-1:[id number]) 30 ml STK -MED ONCE .ROUTE Last administered on 08/14/16 12:12; Start 08/14/16 at 06:44 ; Stop 08/14/16 at 06:45; Status DC Amlodipine Besylate (Norvasc) 10 mg DAILY PO ; Start 08/14/16 at 09:00; Status Cancel Pantoprazole Sodium 40 mg 40 mg DAILYAC PO Last administered on 08/15/16 06:12 ; Start 08/14/16 at 08:30; Stop 08/16/16 at 05:26; Status DC Vancomycin HCl 250 ml @ As Directed STK-MED ONCE .ROUTE ; Start 08/14/16 at 09: 03; Stop 08/14/16 at 09:04; Status DC Vancomycin HCl 250 ml @ 250 mls/hr 1X PREOP PRN IV Pre Op Last administered on 08/14/16t 11:51; Start 08/15/16 at 06:00; Stop 08/15/16 at 18:00; Status DC Dexamethasone Sodium Phosphate (Decadron) 20 mg STK-MED ONCE .ROUTE ; Start at 09:35; Stop 08/14/16 at 09:36; Status DC Ondansetron HCl 4 mg 4 mg STK-MED ONCE .ROUTE ; Start 08/14/16 at 09:35; Stop at 09:36; Status DC Propofol (Diprivan) 20 ml @ As Directed STK-MED ONCE IV ; Start 08/14/16 at 09: 35; Stop 08/14/16 at 09:36; Status DC Lidocaine HCl 100 mg 100 mg STK-MED ONCE .ROUTE ; Start 08/14/16 at 09:35; Stop 08/14/16 at 09:36; Status DC Propofol (Diprivan) 50 ml @ As Directed STK-MED ONCE IV ; Start 08/14/16 at 09: 35; Stop 08/14/16 at 09:36; Status DC Multi-Ingred Cream/Lotion/Oil/ Oint (Artificial Tears Eye Oint) 7 hansel STK-MED ONCE .ROUTE ; Start 08/14/16 at 09:35; Stop 08/14/16 at 09:36; Status DC Sodium Chloride (Sodium Chloride) 50 ml STK-MED ONCE IJ ; Start 08/14/16 at 09: 35; Stop 08/14/16 at 09:36; Status DC Desflurane (Suprane) 90 ml STK-MED ONCE IH ; Start 08/14/16 at 09:35; Stop 08/14 at 09:36; Status DC Fentanyl Citrate (Fentanyl 2ml Vial) 100 mcg STK-MED ONCE .ROUTE ; Start at 09:35; Stop 08/14/16 at 09:36; Status DC Remifentanil HCl (Ultiva) 2 mg STK-MED ONCE IV ; Start 08/14/16 at 09:36; Stop 08/14/16 at 09:37; Status DC Rocuronium Fernley (Zemuron) 50 mg STK-MED ONCE .ROUTE ; Start 08/14/16 at 09:36 ; Stop 08/14/16 at 09:37; Status DC Phenylephrine HCl (John-Synephrine Inj) 10 mg STK-MED ONCE .ROUTE ; Start at 11:53; Stop 08/14/16 at 11:54; Status DC Ephedrine Sulfate 50 mg STK-MED ONCE IV ; Start 08/14/16 at 12:13; Stop at 12:14; Status DC Fentanyl Citrate (Fentanyl 2ml Vial) 50 mcg PRN Q3HRS PRN IV MODERATE PAIN Last administered on 08/16/16 20:10; Start 08/15/16 at 05:23; Stop 08/17/16 at 11:37; Status DC Fentanyl Citrate (Fentanyl 2ml Vial) 75 mcg PRN Q3HRS PRN IV SEVERE PAIN Last administered on 08/17/16 10:33; Start 08/15/16 at 05:23; Stop 08/17/16 at 11:37; Status DC Amlodipine Besylate (Norvasc) 10 mg STK-MED ONCE .ROUTE ; Start 08/15/16 at 08: 57; Stop 08/15/16 at 08:58; Status DC Potassium Chloride (Klor-Con) 20 meq 1X ONCE PO ; Start 08/15/16 at 10:45; Stop 08/15/16 at 10:46; Status Cancel Acetaminophen/ Hydrocodone Bitart (Lortab 10/325) 1 tab PRN Q4HRS PRN PO PAIN Last administered on 08/19/16 04:17; Start 08/15/16 at 13:39; Stop 08/19/16 at 15 :34; Status DC Potassium Chloride 20 meq 20 meq 1X ONCE PO Last administered on 08/15/16 18: 22; Start 08/15/16 at 15:30; Stop 08/15/16 at 15:31; Status DC Vancomycin HCl 250 ml @ 250 mls/hr 1X ONCE IV ; Start 08/16/16 at 03:30; Stop 08/16/16 at 04:29; Status UNV Vancomycin HCl 1 each 1 each PRN DAILY PRN MC SEE COMMENTS Last administered on 08/16/16 03:54; Start 08/16/16 at 03:45; Stop 08/17/16 at 14:59; Status DC Vancomycin HCl/ Sodium Chloride (Iv Sodium Chloride 0.9% 250ml) 250 ml @ 250 mls/hr Q24H IV Last administered on 08/16/16 14:11; Start 08/16/16 at 12:00; Stop 08/17/16 at 12:40; Status DC Vancomycin HCl 1 each 1X ONCE MC Last administered on 08/17/16 11:30; Start at 11:30; Stop 08/17/16 at 11:31; Status DC Vancomycin HCl (Vanco Per Pharmacy) 1 each 1X ONCE MC ; Start 08/16/16 at 03:45 ; Stop 08/16/16 at 03:46; Status UNV Pantoprazole Sodium (Protonix) 40 mg DAILYAC PO Last administered on 08/19/16 05:45; Start 08/16/16 at 05:26; Stop 08/19/16 at 15:34; Status DC Amlodipine Besylate 10 mg 10 mg STK-MED ONCE .ROUTE ; Start 08/16/16 at 08:11; Stop 08/16/16 at 08:12; Status DC Meropenem/Sodium Chloride (Merrem/Iv Sodium Chloride 0.9% 50ml) 50 ml @ 100 mls /hr Q8HRS IV Last administered on 08/19/16 05:44; Start 08/16/16 at 11:00; Stop 08/19/16 at 10:35; Status DC Bisacodyl (Dulcolax Tab) 10 mg DAILY PO Last administered on 08/19/16 09:01; Start 08/17/16 at 09:00; Stop 08/19/16 at 15:34; Status DC Bisacodyl (Dulcolax Supp) 10 mg PRN DAILY PRN OK CONSTIPATION; Start 08/16/16 at 10:45; Stop 08/19/16 at 15:34; Status DC Senna/Docusate Sodium (Senna Plus) 1 tab BID PO Last administered on 08/19/16 09:01; Start 08/16/16 at 21:00; Stop 08/19/16 at 15:34; Status DC Magnesium Citrate (Citroma) 296 ml PRN 1X PRN PO CONSTIPATION Last administered on 08/17/16 13:15; Start 08/16/16 at 10:45; Stop 08/19/16 at 15:17; Status DC Lorazepam (Ativan) 0.5 mg PRN Q6HRS PRN PO ANXIETY / AGITATION Last administered on 08/16/16 21:56; Start 08/16/16 at 12:45; Stop 08/17/16 at 13:26 ; Status DC Gabapentin (Neurontin) 300 mg STK-MED ONCE PO ; Start 08/17/16 at 08:39; Stop 08/17/16 at 08:40; Status DC Amlodipine Besylate (Norvasc) 10 mg STK-MED ONCE .ROUTE ; Start 08/17/16 at 08:39 ; Stop 08/17/16 at 08:40; Status DC Morphine Sulfate 15 mg 15 mg BID PO Last administered on 08/19/16 09:02; Start 08/17/16 at 12:30; Stop 08/19/16 at 15:34; Status DC Vancomycin HCl/ Sodium Chloride (Iv Sodium Chloride 0.9% 250ml) 250 ml @ 250 mls/hr Q12H IV Last administered on 08/17/16 13:16; Start 08/17/16 at 13:00; Stop 08/17/16 at 14:59; Status DC Gabapentin (Neurontin) 300 mg TID PO Last administered on 08/19/16 09:01; Start 08/17/16 at 14:00; Stop 08/19/16 at 15:34; Status DC Amlodipine Besylate (Norvasc) 10 mg DAILY PO Last administered on 08/19/16 09: 01; Start 08/18/16 at 09:00; Stop 08/19/16 at 15:34; Status DC Lorazepam (Ativan) 0.5 mg PRN Q6HRS PRN PO ANXIETY / AGITATION Last administered on 08/17/16 21:37; Start 08/17/16 at 13:30; Stop 08/19/16 at 15:34; Status DC Active Scripts Active Senna-Time S Tablet (Sennosides/Docusate Sodium) 1 Each Tablet 1 Tab PO BID [Bisacodyl] 10 MG Supp.rect 10 Mg OK PRN DAILY PRN Bisacodyl 5 Mg Tablet.dr 10 Mg PO DAILY Lidoderm (Lidocaine) 700 Mg Adh..patch 1 Patch TD DAILY Hydrocodone-Apap 10-325 (Hydrocodone Bit/Acetaminophen) 1 Each Tablet 1 Tab PO PRN Q4HRS PRN Gabapentin 300 Mg Capsule 300 Mg PO TID Tylenol (Acetaminophen) 325 Mg Tablet 650 Mg PO PRN Q6HRS PRN Reported Amlodipine Besylate 10 Mg Tablet 1 Tab PO DAILY Vitals/I & O Vital Sign - Last 24 Hours 08/18/16 08/18/16 08/18/16 08/18/16 19:50 20:15 21:18 23:21 Temp 98.7 98.6 98.7 98.6 Pulse 97 110 Resp 18 18 B/P 95/61 124/85 Pulse Ox 96 96 O2 Delivery Room Air Room Air Room Air Room Air 08/19/16 08/19/16 08/19/16 08/19/16 01:10 03:00 04:17 05:47 Temp 98.5 98.5 Pulse 73 Resp 18 B/P 121/64 Pulse Ox 97 O2 Delivery Room Air Room Air Room Air Room Air 08/19/16 08/19/16 08/19/16 08/19/16 07:00 08:00 09:01 09:02 Temp 97.8 97.8 Pulse 69 69 Resp 18 18 B/P 116/79 116/79 Pulse Ox 95 O2 Delivery Room Air Room Air Room Air Intake and Output 08/18/16 08/18/16 08/19/16 15:00 23:00 07:00 Intake Total 450 ml Balance 450 ml RAUL DEVI MD Aug 19, 2016 18:28
== END 2016-08-19 14:00 | disposition home health service (06) | DRG 515 ==
LOC: 4 NORTH 13:53
PROVIDERS: ADMIT Internal Medicine; ATTEND Internal Medicine
PROC: 4A1004G Monitoring of Central Nervous Electrical Activity, Intraoperative, Open Approach (ICD-10-PCS; 2016-08-14)
PROC: 01NB0ZZ Release Lumbar Nerve, Open Approach (ICD-10-PCS; principal; 2016-08-14 12:00)
DX: M48.06 Spinal stenosis, lumbar region (principal); E43 Unspecified severe protein-calorie malnutrition; Z68.1 Body mass index [BMI] 19.9 or less, adult; J98.11 Atelectasis; E87.6 Hypokalemia; M21.371 Foot drop, right foot; D64.9 Anemia, unspecified; E86.0 Dehydration; F12.90 Cannabis use, unspecified, uncomplicated; G89.29 Other chronic pain; I12.9 Hypertensive chronic kidney disease with stage 1 through stage 4 chronic kidney disease, or unspecified chronic kidney disease; J44.9 Chronic obstructive pulmonary disease, unspecified; K21.9 Gastro-esophageal reflux disease without esophagitis; K59.00 Constipation, unspecified; M51.17 Intervertebral disc disorders with radiculopathy, lumbosacral region; F14.90 Cocaine use, unspecified, uncomplicated; F41.9 Anxiety disorder, unspecified; R01.1 Cardiac murmur, unspecified; M70.60 Trochanteric bursitis, unspecified hip; M77.9 Enthesopathy, unspecified; N18.2 Chronic kidney disease, stage 2 (mild); Z82.49 Family history of ischemic heart disease and other diseases of the circulatory system; Z87.11 Personal history of peptic ulcer disease; Z87.891 Personal history of nicotine dependence; M70.62 Trochanteric bursitis, left hip; M70.61 Trochanteric bursitis, right hip
CPT/HCPCS: 36415; 71010; 71250; 76000; 80048; 80053; 80061; 80202; 81001; 83735; 84443; 85027; 87040; 88304; 88311; 93005; 93306; G0481; J1100; J1885; J2185; J2270; J2405; J2704; J3010; J3370; J3490; J7030; J7050; 97110; 97116; 97530; 97535

== ENCOUNTER 2016-09-12 09:32 | Emergency (ER) | payer BC, MEDICARE ==
[~2016-09-12] VITALS: Ht 160 cm; Wt 57.6 kg
[~2016-09-12 09:32] MED LIST changes: +ACET325T9 PO; +BISA5TAB4 PO; +Bisacodyl PR; +GABA-586 PO; +HYDR-2672 PO; +LIDO700A4 TD; +SENN-22 PO
[2016-09-12] MEDS ORDERED: MORPHINE SULFATE 10 MG/ML VIAL. IM ONE (10:15)
[2016-09-12] MEDS ORDERED: CLONIDINE HCL 0.1 MG TABLET PO ONE (10:15)
[2016-09-12] MEDS ORDERED: HYDR-2679 PO (10:25)
[2016-09-12] MEDS ORDERED: CYCL10TA2 PO (10:25)
[2016-09-12] MEDS ORDERED: CLON0.1T PO (10:25)
--- NOTE | 2016-09-12 10:26 | PHYS DOC ---
Past Medical History Past Medical History: Arthritis, Hypertension, Pancreatitis, Other Additional Past Medical Histor: chronic back pain Past Surgical History: Cholecystectomy, Other Additional Past Surgical Histo: BACK SURG Alcohol Use: Occasionally Drug Use: Cocaine, Marijuana Social History Narrative: SMOKED MARIJUANA THIS MORNING Adult General Chief Complaint Chief Complaint: LOWER BACK PAIN OR INJURY [facility] HPI Patient is a 66 year old female with history of hypertension, pancreatitis, chronic back pain, who presents today with 10 out of 10 bilateral low back pain that began this morning. Patient states she had back surgery done by Dr. Agarwal 3 weeks ago. Patient states she was put on hydrocodone and morphine, patient states this morning she realized she ran out of all her pain medicines. She states she did not call her doctor in the. She is requesting a refill. Patient also states she ran out of her blood pressure medicine. She states she is supposed to be taking clonidine every day and ran out yesterday. She states she has not called her PCP for refills. Patient denies any injuries. Denies any pain radiating to bilateral lower extremities. Denies any loss of bowel bladder function. Review of Systems Review of Systems Constitutional: Denies fever or chills [] Eyes: Denies change in visual acuity, redness, or eye pain [] HENT: Denies nasal congestion or sore throat [] Respiratory: Denies cough or shortness of breath [] Cardiovascular: No additional information not addressed in HPI [] GI: Denies abdominal pain, nausea, vomiting, bloody stools or diarrhea [] : Denies dysuria or hematuria [] Musculoskeletal: Low back pain Integument: Denies rash or skin lesions [] Neurologic: Denies headache, focal weakness or sensory changes [] Endocrine: Denies polyuria or polydipsia [] Allergies Allergies Allergies Coded Allergies Type Severity Reaction Last Updated Verified Penicillins Allergy Intermediate 08/14/16 Yes Physical Exam Physical Exam Constitutional: Well developed, well nourished, no acute distress, non-toxic appearance. [] HENT: Normocephalic, atraumatic, bilateral external ears normal, oropharynx moist, no oral exudates, nose normal. [] Eyes: PERRLA, EOMI, conjunctiva normal, no discharge. [] Neck: Normal range of motion, no tenderness, supple, no stridor. [] Cardiovascular:Heart rate regular rhythm, no murmur [] Lungs & Thorax: Bilateral breath sounds clear to auscultation [] Abdomen: Bowel sounds normal, soft, no tenderness, no masses, no pulsatile masses. [] Skin: Warm, dry, no erythema, no rash. [] Back: A well-healing surgical scar noted on the lumbar spine. Diffuse paraspinal muscle tenderness on the lumbar spine, no midline tenderness to the lumbar spine, no CVA tenderness. [] Extremities: No tenderness, no cyanosis, no clubbing, ROM intact, no edema. [] Neurologic: Alert and oriented X 3, normal motor function, normal sensory function, no focal deficits noted. [] Psychologic: Affect normal, judgement normal, mood normal. [] Current Patient Data Vital Signs Vital Signs Date Time Temp Pulse Resp B/P Pulse Ox O2 Delivery O2 Flow Rate FiO2 09/12/16 09:52 97 65 24 235/105 97 Room Air 97.0 EKG EKG [] Radiology/Procedures Radiology/Procedures [] Course & Med Decision Making Course & Med Decision Making Pertinent Labs and Imaging studies reviewed. (See chart for details) Patient is in the ED with exacerbation of chronic back pain. She did have back surgery 3 weeks ago and drain not of morphine and hydrocodone. She is also out of her blood pressure medicines. Some she did not call her PCP or her neurosurgeon. Talked to patient about the importance of calling the primary care doctor as well as neurosurgeon. Her BP was elevated at 205/105 when i was in the room. She states she has not taken any of her blood pressure medicine since yesterday. Patient denies any neurological cardiac symptoms. She was given morphine and clonidine in the ED. I discharged her with clonidine for her blood pressure as well as hydrocodone for pain. Instructed her to contact her PCP and neurosurgeon as soon as possible. Dragon Disclaimer Dragon Disclaimer This electronic medical record was generated, in whole or in part, using a voice recognition dictation system. Departure Departure Impression: Primary Impression: Acute exacerbation of chronic low back pain Additional Impression: Accelerated hypertension Disposition: 01 HOME, SELF-CARE Condition: STABLE Referrals: MILLY FERRERA MD (PCP) Follow-up with your doctor as soon as possible for blood pressure medicine DANIEL AGARWAL MD Follow-up with your doctor as soon as possible for pain medication refill Patient Instructions: Back Pain, Adult, [id number], Hypertension Additional Instructions: You were seen for exacerbation of chronic back pain. Urine out of your pain medicines. Please call your primary care doctor as well as the neurosurgeon to get refills of your blood pressure medicine and pain medicine. The ED does not refill some of this medicines. We gave you a small amount as courtesy today. Scripts Cyclobenzaprine Hcl 10 Mg Tablet1 Tab PO TID #30 TAB Prov:DINA SALDANA APRN 09/12/16 Hydrocodone/Acetaminophen (Lortab 7.5-325 mg Tablet)1 Each Tablet1 Tab PO PRN Q6HRS PRN PAIN #14 TAB Ref 0 Prov:DINA SALDANA APRN 09/12/16 Clonidine Hcl 0.1 Mg Tablet1 Tab PO QHS #12 TAB Ref 2 Prov:DINA SALDANA APRN 09/12/16 Problem Qualifiers DINA SALDANA APRN Sep 12, 2016 10:26
[2016-09-12 10:42] VITALS: BP 191/99
== END 2016-09-12 10:47 | disposition home or self-care (01) ==
LOC: ER 09:32
DX: G89.29 Other chronic pain (principal); M54.5 Low back pain; I10 Essential (primary) hypertension; M19.90 Unspecified osteoarthritis, unspecified site; F14.10 Cocaine abuse, uncomplicated; F12.10 Cannabis abuse, uncomplicated; Z88.0 Allergy status to penicillin; Z79.891 Long term (current) use of opiate analgesic; Z79.899 Other long term (current) drug therapy; Z98.890 Other specified postprocedural states
CPT/HCPCS: 96372; 99284; J2270